=== PATIENT | male | born 1955 | race Caucasian/White ===

== ENCOUNTER 2016-07-11 13:37 | Inpatient (IN) ==
[2016-07-11] MEDS ORDERED: Aspirin 81 MG TAB.CHEW PO ONE (13:42)
[2016-07-11] MEDS ORDERED: *HR* Morphine 2 MG/ML SYRINGE IV ONE (13:47)
[2016-07-11] MEDS ORDERED: Nitroglycerin 0.4 MG TAB.SUBL SL STA (13:47)
[2016-07-11] MEDS ORDERED: Ondansetron 4 MG/2 ML VIAL IV ONE (13:47)
--- NOTE | 2016-07-11 13:49 | Emergency Department Note ---
Disposition Clinical Impression: Unstable angina Disposition: Admitted As Inpatient Referrals: Jerry Almeida MD [Primary Care Provider] - Forms: ED Satisfaction Letter Chest Pain HPI - General Chief Complaint: ED Chest Pain Stated Complaint: CP Time Seen by Provider: 07/11/16 13:42 Source: patient, family Limitations: no limitations Vital Signs Reviewed: Yes Nursing Notes Reviewed: Yes - History of Present Illness Pt complaint: chest pain Onset (ago): minute(s) (20) Duration: constant Onset: during rest Pain Location: substernal Severity scale (1-10): 10 Quality: other (pressure "18k pounds on my chest") Improves with: nothing Worsens with: nothing Associated symptoms: Reports: diaphoresis, sense of impending doom Treatments prior to arrival chest pain: none - Related Data Home Medications Medication Instructions Recorded Confirmed Albuterol Sulfate [Proair Hfa] 2 puff IH QID PRN 04/19/16 04/19/16 Aspirin 81 mg PO DAILY 04/19/16 04/19/16 ClonazePAM [Klonopin] 2 mg PO TID PRN 04/19/16 04/19/16 Clopidogrel [Plavix] 75 mg PO DAILY 04/19/16 04/19/16 Docusate [Colace] 100 mg PO DAILY PRN 04/19/16 04/19/16 Fluticasone Propionate Nasal 50 mcg NS DAILY 04/19/16 04/19/16 [Flonase] Hydroxyzine HCl 25 mg PO TID PRN 04/19/16 04/19/16 Linagliptin [Tradjenta] 5 mg PO DAILY 04/19/16 04/19/16 Lisinopril/Hydrochlorothiazide 1 each PO DAILY 04/19/16 04/19/16 [Zestoretic 20-12.5 mg Tablet] Loratadine [Claritin] 10 mg PO DAILY 04/19/16 04/19/16 Metformin HCl [Glucophage] 1,000 mg PO BID 04/19/16 04/19/16 Nitroglycerin [Nitrostat] 0.4 mg SL AD PRN 04/19/16 [place]-3S/Dha/Epa/Fish Oil [Fish 1 each PO DAILY 04/19/16 04/19/16 Oil 1,200 mg Softgel] Oxcarbazepine [Trileptal] 300 mg PO BID 04/19/16 Oxycodone HCl 20 mg PO TID PRN 04/19/16 04/19/16 Pantoprazole Sodium [Protonix] 40 mg PO DAILY 04/19/16 04/19/16 Phenytoin ER [Dilantin ER] 100 mg PO QAM 04/19/16 04/19/16 Pravastatin Sodium [Pravachol] 20 mg PO DAILY 04/19/16 04/19/16 Trazodone HCl 100 mg PO HS 04/19/16 04/19/16 Omeprazole [PriLOSEC] 40 mg PO DAILY 07/11/16 07/11/16 Previous Rx's Medication Instructions Recorded LevETIRAcetam [Keppra] 1,000 mg PO Q12HR 30 Days 04/23/16 Benzonatate [Tessalon] 200 mg PO TID PRN #20 capsule 06/17/16 Doxycycline 100 mg PO BID #14 capsule 06/17/16 PredniSONE 20 mg PO BID #10 tablet 06/17/16 Allergies Allergy/AdvReac Type Severity Reaction Status Date / Time levofloxacin [From Levaquin] Allergy Hives Verified 07/11/16 14:47 naproxen Allergy Hives Verified 07/11/16 14:47 All systems ED: reviewed and negative except as stated. Constitutional: Denies: fever Cardiovascular: Denies: palpitations Respiratory: Denies: dyspnea, wheezes, hemoptysis Gastrointestinal: Denies: abdominal pain Chest Pain PMH - Past Medical History Medical history: Reports: diabetes, hypertension, myocardial infarction, seizures, other Surgical history: Reports: angioplasty/stent, appendectomy, cholecystectomy, herniorrhaphy, knee replacement Psychiatric history: Reports: anxiety, depression, panic disorder - Social History Smoking Status: Current every day smoker Alcohol use: Reports: none Drug use: Reports: none Physical Exam - General Limitations: no limitations General appearance: alert, other (diaphoretic) - Head Head exam: atraumatic, normocephalic, normal inspection - Eye Eye exam: Present: normal appearance, PERRL, EOMI - Expanded Eye Exam Pupils: Left: reactive - ENT ENT exam: normal exam, normal oropharynx, mucous membranes moist - Expanded ENT Exam External ear exam: Present: normal external inspection Mouth exam: Present: normal external inspection Teeth exam: Present: normal inspection Throat exam: Present: normal inspection - Neck Neck exam: Present: normal inspection, full ROM, trachea midline - Chest Chest inspection: Present: normal inspection, symmetric chest wall rise - Respiratory Respiratory exam: Present: normal lung sounds bilaterally - Cardiovascular Cardiovascular exam: Present: regular rate, normal rhythm, normal heart sounds - Abdominal Exam Abdominal exam: Present: soft, Non-Tender. Absent: tenderness, distention, guarding, rebound, rigidity - Extremities Exam Extremities exam: Present: normal inspection, full ROM. Absent: tenderness, pedal edema - Expanded Upper Extremity Exam Shoulder exam: Present: normal inspection, full ROM Arm exam: Present: normal inspection, full ROM Elbow exam: Present: normal inspection, full ROM Forearm/Wrist exam: Present: normal inspection, full ROM Hand exam: Present: normal inspection, full ROM Vascular exam: Normal: capillary refill, radial pulse - Expanded Lower Extremity Exam Hip/Pelvis exam: Present: normal inspection, full ROM Upper leg exam: Present: normal inspection, full ROM Knee exam: Present: normal inspection, full ROM Lower leg exam: Present: normal inspection, full ROM Ankle exam: Present: normal inspection, full ROM Foot/toe exam: Present: normal inspection, full ROM Neurovascular/Tendon exam: Absent: motor deficit, sensory deficit, tendon deficit - Back Exam Back exam: Present: normal inspection, full ROM. Absent: tenderness - Neurological Exam Neurological exam: Present: alert, oriented X3 - Expanded Neurological Exam Patient oriented to: Present: person, place, time Coma Scale Eye Opening: Spontaneous Coma Scale Motor Response: Obeys Commands Coma Scale Verbal Response: Oriented Coma Scale Total: 15 - Psychiatric Psychiatric exam: Present: normal affect, normal mood - Skin Skin exam: Present: warm, dry, intact, normal color Course - Reevaluation(s) Reevaluation #1: Dr. marin notified patient persistent CP pressure severe, diaphoretic prior PTCA 2013 RCA stent initial troponin 0.21 will activate cath Time: 14:42 Vital Signs Temperature 98.3 F 07/11/16 13:38 Pulse Rate 94 07/11/16 13:38 Respiratory Rate 24 07/11/16 13:38 Blood Pressure 190/108 07/11/16 13:38 O2 Sat by Pulse Oximetry 96 07/11/16 13:38 Temperature 98.3 F 07/11/16 13:38 Pulse Rate 78 07/11/16 14:30 Respiratory Rate 22 07/11/16 14:30 Blood Pressure 127/76 07/11/16 14:30 O2 Sat by Pulse Oximetry 96 07/11/16 14:30 Oxygen Delivery Oxygen Delivery Nasal Cannula Chest Pain - Differential Diagnosis Likely: stable angina, unstable angina pectoris, atypical chest pain, st elevation myocardial infraction, chest pain, biliary colic - Medical Records Medical records reviewed: Yes I reviewed the patient's medical records. - Lab Data Lab results reviewed: Yes I reviewed the patient's lab results. Result diagrams: 07/11/16 13:58 07/11/16 13:58 Lab Results 07/11/16 07/11/16 07/11/16 Range/Units 13:58 13:58 13:58 WBC 10.1 (4.3-11.1) K/mcL RBC 5.11 (4.19-5.50) M/mcL Hgb 15.5 (12.9-16.9) g/dL Hct 45.4 (37.5-50.1) % MCV 88.8 (83.0-100.0) fL MCH 30.3 (28.0-33.3) pg MCHC 34.1 (31.6-35.5) g/dL RDW 13.5 (11.5-14.5) % Plt Count 138 L (140-400) K/mcL MPV 11.8 (9.4-12.4) fL Immature Gran % 3.7 (0-4) % Seg Neutrophils % 64.5 % Lymphocytes % 24.7 % Monocytes % 5.0 % Eosinophils % 1.1 % Basophils % 1.0 % Neutrophils # 6.5 (1.6-8.9) K/mcL Lymphocytes # 2.5 (0.6-4.6) K/mcL Monocytes # 0.5 (0.0-1.3) K/mcL Eosinophils # 0.1 (0.0-0.6) K/mcL Basophils # 0.1 (0.0-0.2) K/mcL PT 11.2 (9.4-12.1) Seconds INR 1.0 APTT 28.5 (26.0-36.0) Seconds Sodium 140 (136-145) mEq/L Potassium 3.8 (3.5-4.5) mEq/L Chloride 106 (98-109) mEq/L Carbon Dioxide 22 (19-29) mEq/L BUN 15 (8-26) mg/dL Creatinine 0.89 (0.72-1.25) mg/dL Est GFR ( Amer) > 60 (> 60) Est GFR (Non-Af Amer) > 60 (> 60) BUN/Creatinine Ratio 17 (6-26) Glucose 200 H (70-99) mg/dL Calculated Osmolality 296 (280-300) Calcium 9.9 (8.6-10.8) mg/dL Troponin I (0-0.03) ng/mL 07/11/16 Range/Units 13:58 WBC (4.3-11.1) K/mcL RBC (4.19-5.50) M/mcL Hgb (12.9-16.9) g/dL Hct (37.5-50.1) % MCV (83.0-100.0) fL MCH (28.0-33.3) pg MCHC (31.6-35.5) g/dL RDW (11.5-14.5) % Plt Count (140-400) K/mcL MPV (9.4-12.4) fL Immature Gran % (0-4) % Seg Neutrophils % % Lymphocytes % % Monocytes % % Eosinophils % % Basophils % % Neutrophils # (1.6-8.9) K/mcL Lymphocytes # (0.6-4.6) K/mcL Monocytes # (0.0-1.3) K/mcL Eosinophils # (0.0-0.6) K/mcL Basophils # (0.0-0.2) K/mcL PT (9.4-12.1) Seconds INR APTT (26.0-36.0) Seconds Sodium (136-145) mEq/L Potassium (3.5-4.5) mEq/L Chloride (98-109) mEq/L Carbon Dioxide (19-29) mEq/L BUN (8-26) mg/dL Creatinine (0.72-1.25) mg/dL Est GFR ( Amer) (> 60) Est GFR (Non-Af Amer) (> 60) BUN/Creatinine Ratio (6-26) Glucose (70-99) mg/dL Calculated Osmolality (280-300) Calcium (8.6-10.8) mg/dL Troponin I 0.21 H* (0-0.03) ng/mL - EKG Data EKG attestation: Yes I reviewed and interpreted this EKG. EKG shows normal: sinus rhythm Rate: normal Rhythm: NSR [place]/QRS: RBBB When compared to previous EKG there are: other (No ischemic changes noted between the 2 EKGs but patient still complains of severe substernal chest pressure and nausea production corrugator notified) Critical Care Time Critical Care Time: Yes Total Critical Care Time: 40 Attestation: Critical care performed: Time is exclusive of separately billable procedures. Time includes: direct patient care, patient reassessment, coordination of patient care, interpretation of data (laboratory data, radiology data, and respiratory data), review of patient's medical records, medical consultation and documentation of patient care. Procedures included in critical care time: Procedures excluded from critical care time:
[2016-07-11 14:05] LABS: Basophils # 0.1 K/mcL (0.0-0.2); Eosinophils # 0.1 K/mcL (0.0-0.6); Eosinophils % 1.1 %; Hematocrit 45.4 % (37.5-50.1); Hemoglobin 15.5 g/dL (12.9-16.9); Immature Granulocytes % 3.7 % (0-4); Lymphocytes # 2.5 K/mcL (0.6-4.6); Lymphocytes % 24.7 %; Mean Corpuscular HGB Conc 34.1 g/dL (31.6-35.5); Mean Corpuscular Hemoglobin 30.3 pg (28.0-33.3); Mean Corpuscular Volume 88.8 fL (83.0-100.0); Mean Platelet Volume 11.8 fL (9.4-12.4); Monocytes # 0.5 K/mcL (0.0-1.3); Neutrophils # 6.5 K/mcL (1.6-8.9); Platelet Count 138 K/mcL (140-400); Red Blood Count 5.11 M/mcL (4.19-5.50); Red Cell Distribution Width 13.5 % (11.5-14.5); Segmented Neutrophils % 64.5 %
[2016-07-11 14:12] LABS: Prothrombin Time 11.2 Seconds (9.4-12.1)
[2016-07-11 14:15] LABS: Activated Partial Thrombo Time 28.5 Seconds (26.0-36.0)
[2016-07-11 14:18] LABS: BUN/Creatinine Ratio 17 (6-26); Blood Urea Nitrogen 15 mg/dL (8-26); Calcium 9.9 mg/dL (8.6-10.8); Carbon Dioxide 22 mEq/L (19-29); Chloride 106 mEq/L (98-109); Glucose 200 mg/dL (70-99); Osmolality,Calculated 296 (280-300); Potassium 3.8 mEq/L (3.5-4.5); Sodium 140 mEq/L (136-145); eGFR For African Americans > 60 (> 60); eGFR For Non-African Americans > 60 (> 60)
[2016-07-11] MEDS ORDERED: *HR* Heparin 5,000 UNIT/ML VIAL IVP STA (14:40)
[2016-07-11] MEDS ORDERED: Heparin 1,000 UNITS/500 mL NS 500 ML ONE (14:50)
[2016-07-11] MEDS ORDERED: 0.9 % Sodium Chloride 1,000 ML ONE (14:50)
[2016-07-11] MEDS ORDERED: *HR* Heparin 10,000 UNIT/10 ML VIAL ONE (14:50)
[2016-07-11] MEDS ORDERED: *HR* Bivalirudin 250 MG VIAL IVC ONE (14:52)
[2016-07-11] MEDS ORDERED: Nitroglycerin 1,000 MCG/10 ML VIAL IV ONE (14:52)
--- NOTE | 2016-07-11 15:11 | Pre-Sedation Evaluation ---
Pre-sedation evaluation - Pre-sedation checklist Date of procedure: 07/11/16 Procedure: [facility] Recent Vitals: Last Vital Signs Temp 98.3 F 07/11/16 13:38 Pulse 74 07/11/16 14:45 Resp 20 07/11/16 15:05 BP 135/80 07/11/16 15:05 Pulse Ox 94 L 07/11/16 14:45 H&P (including ROS) documented in medical record: Yes Previous reaction to sedatives/anesthetics: No Dietary Status: No solid food in preceding 4 hrs and no liquid in preceding 2 hrs Airway Assessment: Patient can open mouth completely, TMJ function normal Dentition: No loose teeth or bridges Possible difficult airway: No ASA Classification *see protocol: CLASS III-Severe systemic disease Plan of Care: Pt appropriate candidate for procedure/moderate/conscious sedation , Risks/benefits of procedure/sedation discussed w/ patient/family, If not NPO; Risk of intake outweiged by necessity to perform procedure
[2016-07-11] MEDS ORDERED: *HR* Midazolam HCl 5 MG/5 ML VIAL IVP ONE (15:12)
[2016-07-11] MEDS ORDERED: *HR* FentaNYL (PF) 100 MCG/2 ML VIAL ONE (15:12)
[2016-07-11] MEDS ORDERED: Ondansetron 4 MG/2 ML VIAL IVP PRN (15:45)
[2016-07-11] MEDS ORDERED: Nitroglycerin 0.4 MG TAB.SUBL SL PRN (15:45)
--- NOTE | 2016-07-11 15:55 | Cardiology Consult Note ---
Date of Encounter: 07/11/16 Time of Encounter: 15:53 Assessment and Plan (1) ST elevation (STEMI) myocardial infarction involving left circumflex coronary artery Current Visit: Yes Status: Acute Patient presented with chest pain and underwent stenting to the circumflex using a bare-metal stent due to significant recurrent nosebleed history he is a diabetic. Continue aspirin Plavix, beta reuben, LSIE inhibitor. We will put him on statins and check an echocardiogram Discussion w patient/family: The assessment and plan as outlined above was discussed with the patient and/or family members who expressed understanding and agreement. All questions were answered. Thank you for involving us in the care of your patient. Please call with any questions. History of Present Illness Consult date: 07/11/16 Consult reason: STEMI Chief complaint: Chest pain History of present illness: Mr. Najera is a 60 year old male with history of known coronary artery disease and prior inferior myocardial infarction 2013 with RCA stent who presented to the ENT office today with recurrent nosebleeds. He says over the last year he has had recurrent nosebleeds at one point he lost 60% of his blood volume. He has been off Plavix for a few days in anticipation of a cauterization procedure. When he went to the ENT office he complained of severe substernal chest pain. He has been having on and off chest pain for the last week or so. The chest pain is described as severe midsternal nonradiating associated with diaphoresis and shortness of breath. Pain did not relent therefore he was brought to the ER. His EKG showed normal sinus rhythm right bundle branch block evidence of acute inferior myocardial infarction with ST elevations in 3 and aVF. New compared to EKG in April 2016. He was taken to the [facility] and underwent PTCA and stent placement with a bare metal stent to the mid circumflex. He is now pain-free. Past Med Surg Social Fam HX - Past Medical History Medical history: diabetes, hypertension, myocardial infarction, seizures, other Psychiatric history: anxiety, depression, panic disorder - Past Surgical History Surgical History: angioplasty/stent, appendectomy, cholecystectomy, herniorrhaphy, knee replacement - Social History Smoking Status: Current every day smoker Smokeless Tobacco Status: No Alcohol use: none Drug use: none - Family History Sister Adopted: No Living Status: Hx Family Cardiac Disorders: Yes (SISTER WITH PACEMAKER & VALVE) Hx Family Respiratory Disorders: Yes (SIUSTER WITH COPD) Hx Family Cancer: Yes (SISTER OF BRAIN CANCER) Hx Family GI Disorders: (UNKNOWN) Hx Family Endocrine Disorder: Yes (SISTER WITH DM) Medications and Allergies Albuterol Sulfate [Proair Hfa] 2 puff IH QID PRN 04/19/16 [History] Aspirin 81 mg PO DAILY 04/19/16 [History] ClonazePAM [Klonopin] 2 mg PO TID PRN 04/19/16 [History] Clopidogrel [Plavix] 75 mg PO DAILY 04/19/16 [History] Docusate [Colace] 100 mg PO DAILY PRN 04/19/16 [History] Fluticasone Propionate Nasal [Flonase] 50 mcg NS DAILY 04/19/16 [History] Hydroxyzine HCl 25 mg PO TID PRN 04/19/16 [History] Linagliptin [Tradjenta] 5 mg PO DAILY 04/19/16 [History] Lisinopril/Hydrochlorothiazide [Zestoretic 20-12.5 mg Tablet] 1 each PO DAILY [History] Loratadine [Claritin] 10 mg PO DAILY 04/19/16 [History] Metformin HCl [Glucophage] 1,000 mg PO BID 04/19/16 [History] Nitroglycerin [Nitrostat] 0.4 mg SL AD PRN 04/19/16 [History] [place]-3S/Dha/Epa/Fish Oil [Fish Oil 1,200 mg Softgel] 1 each PO DAILY 04/19/16 [ History] Oxcarbazepine [Trileptal] 300 mg PO BID 04/19/16 [History] Oxycodone HCl 20 mg PO TID PRN 04/19/16 [History] Pantoprazole Sodium [Protonix] 40 mg PO DAILY 04/19/16 [History] Phenytoin ER [Dilantin ER] 100 mg PO TID 04/19/16 [History] Pravastatin Sodium [Pravachol] 20 mg PO DAILY 04/19/16 [History] Trazodone HCl 100 mg PO HS 04/19/16 [History] LevETIRAcetam [Keppra] 1,000 mg PO Q12HR 30 Days 04/23/16 [Rx] Benzonatate [Tessalon] 200 mg PO TID PRN #20 capsule 06/17/16 [Rx] Doxycycline 100 mg PO BID #14 capsule 06/17/16 [Rx] PredniSONE 20 mg PO BID #10 tablet 06/17/16 [Rx] Omeprazole [PriLOSEC] 40 mg PO DAILY 07/11/16 [History] Allergies levofloxacin [From Levaquin] Allergy (Verified 07/11/16 14:47) Hives naproxen Allergy (Verified 07/11/16 14:47) Hives All Systems Review: A 10-system review of systems was performed and is negative for pertinent findings except as documented above in the HPI. Physical Examination General: Conversant, No Apparent Distress HEENT: Atraumatic, Normocephaly, Mucus Membranes Moist Neck: No JVD, Normal carotid pulses Cardiac: Reg Rate and Rhythm, Normal S1 and S2, No Murmur Lungs: Normal Breath Sounds, No Wheeze, Rales, Rhonchi Neuro: Alert and responsive, No focal deficits noted Abdomen: Soft Skin: No rashes noted on visualized skin Musculoskeletal: No Chest Wall Tenderness Extremities: No Clubbing, No Cyanosis, No Edema, Normal Pulses Results 07/11/16 13:58 07/11/16 13:58 - EKG Interpretation EKG results cardiology: personally reviewed (Normal sinus rhythm inferior ST elevations right bundle-branch block) Consult Discharge Plan - Plan Referrals: Jerry Almeida MD [Primary Care Provider] -
--- NOTE | 2016-07-11 15:58 | Invasive Diagnostic Lab Proc ---
Name: Juan Najera Date of Study: 07/11/2016 Date: 1955 Ht: 70.0in Medical Record#: [id number] Age: 60 Wt: 197.31lb Gender: Male BSA: 2.08 Order #: [id number] BMI: 28.31 Physicians Procedure Physician: Darrin Betancourt MD Referring MD: Referring MD: Staff Name Position Time In Sites, [facility] RT (R) Monitor 03:10 PM Rosetta Rivera RT (R) Scrub 03:10 PM Janie Rose RN Environmental Director 03:10 PM Belén Weaver RN Nurse 03:10 PM Indications Indication STEMI Procedures Performed Procedure L HRT ARTERY/VENTRICLE ANGIO PRQ CARD REVASC NC 1 VSL Pre-Procedure Checklist Informed consent is complete signed and on chart. H\\T\\P is on chart. ID band is on and ID verified with patient. Patient NPO for procedure The procedure was described for the patient and questions were answered. Blood Pressure: 151/82 ECG is on chart. Rhythm: NSR Plan of Care Patient will tolerate the procedure without complications. Adequate level of comfort will be maintained. Hemodynamics will remain stable Patient will recover from procedure without complications. Respiratory function will be maintained. Cardiac rhythm will remain stable. Patient temperature will be maintained. Patient and/or family have verbalized understanding of the procedure. Patient Education Chief Complaint/Reason for Test: Cardiac Cath Developmental Category: Adult (18-64 years) Developmentally Appropriate for Age: Yes Learning Barriers: None Education Needs: Plan of Care Education Method: Verbal Information Taught: Cardiac Cath Educational Evaluation: Able to repeat information Intravenous Access Time IV Size Location DC'd Fluid/Drip Rate Units RN 03:12 PM 18g 1 /" Patent On Arrival Rt Arm 0.9NaCl 25 ml/hr Janie Rose RN Allergies ULTRACET levofloxacin NAPROSYN Vital Signs Time BP (mmHg) HR (bpm) O2 Sat. RR (bpm) LOC 03:11 PM 151 / 82 56 96 % 16 4 = Oriented but drowsy 03:11 PM / % 5 = Fully awake and oriented or at pre-proc level 03:11 PM 151 / 82 56 96 % 0 03:16 PM 141 / 79 64 93 % 33 03:21 PM 140 / 81 71 94 % 20 03:22 PM 149 / 80 78 93 % 19 03:26 PM 139 / 83 78 94 % 22 03:31 PM 127 / 71 77 95 % 16 03:36 PM 120 / 72 76 94 % 22 03:41 PM 145 / 84 82 95 % 15 03:46 PM 146 / 88 80 98 % 16 Procedural Medications Time Medication Dose Units Method Given By 03:11 PM 0.9NaCl 25 ml/hr Intravenous Janie Rose RN 03:11 PM Oxygen 2 L/min nasal cannula Janie Rose RN 03:14 PM Versed 1 mg Intravenous Janie Rose RN 03:14 PM Fentanyl 50 mcg Intravenous Janie Rose RN 03:16 PM Lidocaine 2% 16 ml Subcutaneous Darrin Betancourt MD 03:20 PM Angiomax 0.75mg/kg bolus: 13.5 ml Intravenous Janie Rose RN 03:20 PM Angiomax 1.75mg/kg/hr: 31.5 ml Intravenous Janie Rose RN 03:26 PM Nitroglycerin 200 mcg Intracoronary Darrin Betancourt MD 03:28 PM Oxygen 4 L/min nasal cannula Janie Rose RN 03:32 PM Nitroglycerin 200 mcg Intracoronary Darrin Betancourt MD 03:50 PM Angiomax 1.75mg/kg/hr: ml Dc'd Janie Rose RN ASA Classification: Emergent Procedure: ASA score is assumed Leonel Score Preprocedure Postprocedure Activity 2- Moves 4 extremities sustained head lift Activity 2- Moves 4 extremities sustained head lift Circulation 2- SBP +/= 20 points of pre-anesthetic level Circulation 2- SBP +/= 20 points of pre-anesthetic level Consciousness 2- Awake and alert oriented x 3 Consciousness 2- Awake and alert oriented x 3 O2 Saturation 2- Able to maintain O2 satruation of 92% on room air O2 Saturation 2- Able to maintain O2 satruation of 92% on room air Respiratory 2- Able to deep breathe and cough well Respiratory 2- Able to deep breathe and cough well Total Score 10 Total Score 10 Contrast Agent: Isovue Diagnostic Contrast: 249 ml Total Contrast: 249 ml Fluoro Dose: 1117 mGy Activated Clotting Time Time Seconds to Clot 03:20 PM 203 Procedure Log Time Note Enter By 02:55 PM CathStat 03:05 PM Pt arrived to [facility] tender restoration labor 2 at 15:05 tsites 03:09 PM Patient charges- Angio tray pack, Navilyst 3mm J, Pulse Oximetry and ACIST tubing and transducer tsites 03:10 PM Case Delayed No tsites 03:10 PM Physician arrived 15:10 tsites 03:10 PM Sign in performed according to hospital policy. tsites 03:10 PM Procedure start 15:10 tsites 03:10 PM Prabhjot, Lauren RT (R) Position: Monitor Time in: 15:10 tsites 03:10 PM Rosetta Rivera RT (R) Position: Scrub Time in: 15:10 tsites 03:10 PM Janie Rose RN Position: Environmental Director Time in: 15:10 tsites 03:10 PM Vitals capture started with the following parameters, Patient=Adult, Interval=5 min, Initial Qwfjgltp=465 mmHg, Deflation Rate=5 mmHg, Cuff placed on Left Leg 03:10 PM Belén Weaver RN Position: Nurse Time in: 15:10 ites 03:10 PM Hair removed from procedure site in procedure lab using clippers. Bilateral groin prepped with Chloraprep by Belén Weaver RN then patient draped. Skin intact. tsites 03:11 PM Time: 15:11 0.9NaCl 25 ml/hr Intravenous Given by Janie Rose RN 03:11 PM Time: 15:11 Oxygen on at 2 L/min per nasal cannula by Janie Rose RN 03:11 PM Time: 15:11 Patient comfortable and pain free: Yes 03:11 PM Time: 15:11LOC: 4 = Oriented but drowsy tsites 03:11 PM Clinical Presentation: STEMI or equivalent tsites 03:11 PM HR=56 bpm, AGFB=846/82 mmhg, SpO2=96 %, Resp=0 B/min 03:12 PM Recorded ECG: HR=58 Condition=Condition 1 03:14 PM Time: 15:14 Versed 1 mg Intravenous Given by Janie Rose RN tsites 03:14 PM Time: 15:14 Fentanyl 50 mcg Intravenous Given by Janie Rose RN tsites 03:16 PM HR=64 bpm, TPTY=413/79 mmhg, SpO2=93.0 %, Resp=33 B/min 03:16 PM Pressure channel 1 zeroed. 03:17 PM Time: 15:16 16 ml Lidocaine 2% to right groin Subcutaneous Given by Darrin Betancourt MD tsites 03:17 PM Access obtained by percutaneous puncture. 6Fr 10cm Terumo Davidson sheath placed in right Femoral artery. [id number] tsites 03:17 PM 6Fr JR 4 Runway guide catheter was used to cannulate the PCI vessel successfully. reused? No tsites 03:17 PM 0.035 145cm Navilyst 3mmJ wire [id number] tsites 03:17 PM Inflation device was opened. tsites 03:18 PM Recorded Pressure: Ao, HR=58, Condition=Condition 1 (Aorta) Ao 119/63/84 03:19 PM RCA angiography performed in multiple views. tsites 03:19 PM Coronary Dominance: right tsites 03:19 PM Lesion found in Mid RCA. Pre Stenosis: 70 Pre LEON Flow: tsites 03:20 PM Right Coronary, Right Posterior Descending Arteries with Right Posterolateral and Acute Marginal branches with 70 % stenosis. If graft is supplying this area, % stenosis tsites 03:20 PM At 15:20 the ACT was 203 seconds. tsites 03:20 PM Time: 15:20 Angiomax 0.75mg/kg bolus: 13.5 ml Intravenous Given by Janie Rose RN Morse pump tsites 03:20 PM Time: 15:20 Angiomax 1.75mg/kg/hr: 31.5 ml Intravenous Given by Janie Rose RN Morse pump tsites 03:21 PM Guide catheter removed intact. tsites 03:21 PM HR=71 bpm, EJBW=453/81 mmhg, SpO2=94.0 %, Resp=20 B/min 03:21 PM 5Fr FL 4 catheter inserted over the wire DN tsites 03:21 PM Recorded Pressure: Ao, HR=74, Condition=Condition 1 (Aorta) Ao 70/39/52 03:22 PM NIBP STAT measurement started. 03:22 PM Lesion found in Mid LAD. Pre Stenosis: 20 Pre LEON Flow: tsites 03:22 PM Lesion found in Distal LAD. Pre Stenosis: 80 Pre LEON Flow: tsites 03:22 PM Lesion found in Mid Circumflex. Pre Stenosis: 99 Pre LEON Flow: tsites 03:22 PM HR=78 bpm, SWZS=076/80 mmhg, SpO2=93 %, Resp=19 B/min 03:22 PM Catheter removed tsites 03:23 PM 5Fr Pigtail catheter inserted over the wire DN tsites 03:23 PM Catheter selectively placed in left ventricle tsites 03:23 PM Bolus angiogram of left Ventricle complete: 8 ml/sec for a total of 24 mls tsites 03:23 PM Recorded Pressure: LV, HR=79, Condition=Condition 1 (Left Ventricle) LV 121/8/24 03:24 PM 6Fr XB3.5 Mchenry Bright-Tip guide catheter was used to cannulate the PCI vessel successfully. reused? No tsites 03:26 PM HR=78 bpm, NBPZ=583/83 mmhg, SpO2=94 %, Resp=22 B/min 03: PM Time: 15:26 Nitroglycerin 200 mcg Intracoronary Given by Darrin Betancourt MD tsites 03:26 PM Time: 15:11LOC: 5 = Fully awake and oriented or at pre-proc level tsites 03:27 PM Lesion found in LMCA. Pre Stenosis: 30 Pre LEON Flow: tsites 03:28 PM .014 Prowater 182cm guide wire across target lesion- successful. reused? No tsites 03:28 PM Time: 15:28 Oxygen on at 4 L/min per nasal cannula by Janie Rose RN tsites 03:28 PM 2.0 mm x 8 mm Emerge Monorail balloon across target lesion- successful. reused? No tsites 03:29 PM Balloon inflated @ 8 clarenec for 8 seconds tsites 03:30 PM Balloon inflated @ 12 clarence for 9 seconds tsites 03:30 PM Balloon inflated @ 12 clarence for 6 seconds tsites 03:31 PM Balloon catheter removed intact. tsites 03:31 PM HR=77 bpm, BWJH=545/71 mmhg, SpO2=95 %, Resp=16 B/min 03:32 PM Time: 15:32 Nitroglycerin 200 mcg Intracoronary Given by Darrin Betancourt MD tsites 03:32 PM Recorded Pressure: Ao, HR=74, Condition=Condition 1 (Aorta) Ao 110/62/84 03:34 PM 2.5mm x 16mm Rebel [employer] bare metal stent across target lesion- successful Lot #[id number] tsites 03:35 PM Stent deployed @ 18 clarence for 14 seconds tsites 03:35 PM Stent delivery system removed intact. tsites 03:35 PM Guide wire removed intact. tsites 03:36 PM HR=76 bpm, CLRU=171/72 mmhg, SpO2=94 %, Resp=22 B/min 03:39 PM Lesion found in 1st Diagonal. Pre Stenosis: 50 Pre LEON Flow: tsites 03:40 PM Bolus angiogram of right Femoral complete: 2 ml/sec for a total of 4 mls tsites 03:40 PM Procedure completed at 15:40 tsites 03:41 PM Sign out completed: Radiation Dose 1117 mGy Fluoro Time: 4.7 Isovue 370 - 500ml contrast 249 ml given by Darrin Betancourt MD. Complications: NoneCardiac Rehab Consult needed: YesConfirmed administered medications: Yes tsites 03:41 PM Isovue 370 - 500ml,1 Bottle(s) used. tsites 03:41 PM Arterial sheath pulled, PERCLOSE closure device used and was Successful S/N. tsites 03:41 PM Post ECG NSR tsites 03:41 PM HR=82 bpm, OGWZ=934/84 mmhg, SpO2=95 %, Resp=15 B/min 03:42 PM Post Blood Pressure 145/84 tsites 03:42 PM 15:42 Post Pulses Bilateral DP \\T\\ PT 1+ tsites 03:42 PM Information taught Cardiac Cath, PCI, and Perlose tsites 03:42 PM Education needs Procedure, Plan of Care, and Responsibilities of Patient in Care tsites 03:42 PM Learning barriers :None tsites 03:42 PM Education Methods Verbal tsites 03:42 PM Education evaluation Able to repeat information tsites 03:42 PM Site status No bleeding/hematoma - Rt Groin as reported by Rosetta Rivera RT (R) at 15:42 tsites 03:42 PM Opsite applied tsites 03:42 PM Plavix, Effient or Brilinta given Yes In er tsites 03:43 PM Delay to floor No tsites 03:43 PM Family placed in consult room. tsites 03:44 PM Patient out of room: 15:44 tsites 03:46 PM HR=80 bpm, LXLB=414/88 mmhg, SpO2=98 %, Resp=16 B/min 03:50 PM Time: 15:50 Angiomax 1.75mg/kg/hr: ml Dc'd Given by Janie Rose RN Morse pump tsites 03:51 PM Report given to marge MENARD Pt taken to ICU Room #1. 15:51 tsites Complications Complication None Hemodynamics Pressures Site Systolic/A Wave Diastolic/V Wave Mean AO 119 63 84 AO 70 39 52 LV 121 8 24 AO 110 62 84 Post Procedure Information Blood Pressure: 145/84 mmHg Rhythm: NSR Post procedural instructions were given Closure Device Time Device Success/Fail 07/11/2016 3:44:00 PM Perclose ProGlide Successful Site Checks Time Location Status Staff Sheath In? Note 03:42 PM Rt Groin No bleeding/hematoma Rosetta Rivera RT (R) Pulses Time Site Pre-Procedure Post-Procedure Note 07/11/2016 3:12:00 PM Bilateral DP \\T\\ PT 1+ 3:42:00 PM Bilateral DP \\T\\ PT 1+ Updated by Lauren Rick RT (R) on 07/11/2016 3:53:09 PM Lauren Rick RT electronically signed on 07/11/2016 3:53:36 PM with status of Final
--- NOTE | 2016-07-11 16:05 | Invasive Diagnostic Lab ---
Name: Juan Najera Date of Study: 07/11/2016 Date: 1955 Ht: 177.8 cm /70.0 in Medical Record#: [id number] Age: 60 Wt: 89.5 kg / 197.31 lb Account/Order#: [id number] Gender: Male BSA: 2.08 Order #: [id number] Fluoro Dose: 1117 mGy BMI: 28.31 Procedure Physician: Darrin Betancourt MD Referring MD: Referring MD: Procedures Performed: LEFT HEART CATH PCI of Acute NH Indications: STEMI Impressions: There is severe one vessel coronary artery disease. The left ventricle is normal and has normal contractility EF 60% Patient had successful PTCA/Bare Metal Stent placement in the mid Circ. Recommendations: Optimal medical therapy of patient's disease. Aggressive risk factor modification. History/Risk Factors: Diabetes Current/Recent Smoker Prior NH Previous PCI Procedure Access obtained in the right Femoral artery by percutaneous puncture Patient had successful PTCA/Bare Metal Stent placement in the mid Circ. Complications: None Contrast: Isovue 249ml Closure Device: Perclose ProGlide Hemodynamics: Pressures Site Systolic/ A Wave Diastolic/ V Wave End Diastolic/ Mean HR AO 119 63 84 58 AO 70 39 52 74 LV 121 8 24 79 AO 110 62 84 74 LV Ventriculography Ejection Method: LV Gram Ejection Fraction: 60% Wall Motion: LÓPEZ Anterobasal Normal Anterolateral Normal Apical: Normal Inferoapical Normal Inferobasal Normal Coronary Dominance: right Lesion Findings/Interventions * Left Main Coronary Artery There is a 30% stenosis in the LMCA. * Left Anterior Descending There is a 20% stenosis in the Mid LAD. There is a 50% stenosis in the 1st Diagonal. * Circumflex There is a 16 mm long, 99% stenosis in the Mid Circumflex. The lesion has a LEON flow of 2 and has no thrombus present. An intervention was performed on the Mid Circumflex with a final stenosis of 0%. There were no lesion complications. The final LEON flow was 3. * Right Coronary Artery The Distal RCA has patent stents present from a previous procedure. There is a 70% stenosis in the Mid RCA. Interventional Device(s) Vessel Segment Type Name Diameter (mm) Length (mm) Mid Circumflex Balloon Emerge Monorail 2 8 Mid Circumflex Bare Metal Stent Rebel [employer] 2.5 16 Updated by Lauren Rick RT (R) on 07/11/2016 3:52:38 PM Darrin Betancourt MD electronically signed on 07/11/2016 4:00:33 PM with status of Final
[2016-07-11] MEDS: 0.9 % Sodium Chloride 1,000 ML IVC SCH ×2 (16:58→21:30)
[2016-07-11] MEDS: Insulin LISPRO 300 UNITS/3 ML VIAL SQ SCH (17:50)
[2016-07-12] MEDS ORDERED: *HR* Midazolam HCl 5 MG/5 ML VIAL IVP ONE ×2 (02:42→08:15)
[2016-07-12 03:07] LABS: Basophils # 0.1 K/mcL (0.0-0.2); Basophils % 0.3 %; Eosinophils # 0.3 K/mcL (0.0-0.6); Eosinophils % 1.5 %; Hematocrit 45.4 % (37.5-50.1); Hemoglobin 14.5 g/dL (12.9-16.9); Immature Granulocytes % 4.8 % (0-4); Immature Platelets 10.7 % (1.1-6.1); Lymphocytes # 6.8 K/mcL (0.6-4.6); Lymphocytes % 34.9 %; Mean Corpuscular HGB Conc 31.9 g/dL (31.6-35.5); Mean Corpuscular Volume 93.8 fL (83.0-100.0); Mean Platelet Volume 11.4 fL (9.4-12.4); Monocytes # 1.4 K/mcL (0.0-1.3); Monocytes % 7.4 %; Neutrophils # 9.9 K/mcL (1.6-8.9); Nucleated Red Blood Cells 0.1 /100 WBC (0); Platelet Count 143 K/mcL (140-400); Red Blood Count 4.84 M/mcL (4.19-5.50); Red Cell Distribution Width 13.7 % (11.5-14.5); Segmented Neutrophils % 51.1 %
[2016-07-12 03:13] LABS: ABG Base Excess -14.8 mEq/L (-2.0 to 3.0); ABG HCO3 15.6 mEQ/L (21-27); ABG Oxygen Saturation 100 % (95-98); ABG PCO2 54 mmHg (35-45); ABG PO2 346 mmHg (85-104); ABG TCO2 17.3 mEq/L (20-26)
[2016-07-12 03:15] LABS: Blood Gas FiO2 100 %
[2016-07-12 03:16] LABS: ABG PH 7.07 pH Units (7.32-7.45)
[2016-07-12 03:18] LABS: BUN/Creatinine Ratio 13 (6-26); Blood Urea Nitrogen 12 mg/dL (8-26); Calcium 8.5 mg/dL (8.6-10.8); Carbon Dioxide 14 mEq/L (19-29); Chloride 106 mEq/L (98-109); Glucose 164 mg/dL (70-99); Magnesium 1.9 mg/dL (1.6-2.6); Osmolality,Calculated 293 (280-300); Phosphorous 4.8 mg/dL (2.3-4.7); Potassium 3.6 mEq/L (3.5-4.5); Sodium 140 mEq/L (136-145); eGFR For African Americans > 60 (> 60); eGFR For Non-African Americans > 60 (> 60)
--- NOTE | 2016-07-12 03:23 | Event Note ---
Date of Encounter: 07/12/16 Time of Encounter: 02:45 JUAN SHAW was called at 2:34 AM today. Hospitalist team, respiratory therapy and nursing staff in ICU attended the code. Apparently patient had seizure for about 1 minute, which was witnessed by RN, thinks the patient may have aspirated. Subsequently he went into PEA cardiac arrest. Chest compressions were started immediately. On my arrival, just compression was underway. Pt recieved 1 mg of epinephrine. Pt had ROSC and had facial movements. He is confused and not able to protect the airway. Patient was intubated by respiratory therapist, who noted some blood at the vocal cords (Blood from the nose versus from the vocal cords). o/E Bilateral air entry present after intubation. On mechanical ventilation and sedation. CXR ordered. Stat labs, EKG ordered. Recommendations to primary team: Consider pulmonary consultation for vent management; Consider Neurologist for management of seizure medications; Consider ENT consult for Epistaxis / vocal cord bleed.
[2016-07-12 03:40] LABS: INR 1.1; Prothrombin Time 11.5 Seconds (9.4-12.1)
[2016-07-12 03:42] LABS: Activated Partial Thrombo Time 31.1 Seconds (26.0-36.0)
[2016-07-12] MEDS: 0.9 % Sodium Chloride 1,000 ML IVC SCH (03:44)
[2016-07-12 03:45] LABS: Platelet Estimate Normal (Normal); Reactive Lymphocytes Present (Not Present)
[2016-07-12] MEDS ORDERED: levETIRAcetam 1,000 MG in 0.9 % Sodium Chloride 100 ML IVPB ONE (03:50)
[2016-07-12 05:04] LABS: ABG Base Excess -2.4 mEq/L (-2.0 to 3.0); ABG HCO3 23.2 mEQ/L (21-27); ABG Oxygen Saturation 98 % (95-98); ABG PCO2 42 mmHg (35-45); ABG PH 7.35 pH Units (7.32-7.45); ABG PO2 109 mmHg (85-104); ABG TCO2 24.5 mEq/L (20-26); Blood Gas FiO2 50 %
--- NOTE | 2016-07-12 06:56 | Pulmonology Consult Note ---
<Chandana Roldan W - Last Filed: 07/12/16 10:02> Medications and Allergies Albuterol Sulfate [Proair Hfa] 2 puff IH QID PRN 04/19/16 [History] Aspirin 81 mg PO DAILY 04/19/16 [History] ClonazePAM [Klonopin] 2 mg PO TID PRN 04/19/16 [History] Clopidogrel [Plavix] 75 mg PO DAILY 04/19/16 [History] Docusate [Colace] 100 mg PO DAILY PRN 04/19/16 [History] Fluticasone Propionate Nasal [Flonase] 50 mcg NS DAILY 04/19/16 [History] Hydroxyzine HCl 25 mg PO TID PRN 04/19/16 [History] Linagliptin [Tradjenta] 5 mg PO DAILY 04/19/16 [History] Lisinopril/Hydrochlorothiazide [Zestoretic 20-12.5 mg Tablet] 1 each PO DAILY [History] Loratadine [Claritin] 10 mg PO DAILY 04/19/16 [History] Metformin HCl [Glucophage] 1,000 mg PO BID 04/19/16 [History] Nitroglycerin [Nitrostat] 0.4 mg SL AD PRN 04/19/16 [History] [place]-3S/Dha/Epa/Fish Oil [Fish Oil 1,200 mg Softgel] 1 each PO DAILY 04/19/16 [ History] Oxcarbazepine [Trileptal] 300 mg PO BID 04/19/16 [History] Oxycodone HCl 20 mg PO TID PRN 04/19/16 [History] Pantoprazole Sodium [Protonix] 40 mg PO DAILY 04/19/16 [History] Phenytoin ER [Dilantin ER] 100 mg PO TID 04/19/16 [History] Pravastatin Sodium [Pravachol] 20 mg PO DAILY 04/19/16 [History] Trazodone HCl 100 mg PO HS 04/19/16 [History] LevETIRAcetam [Keppra] 1,000 mg PO Q12HR 30 Days 04/23/16 [Rx] Benzonatate [Tessalon] 200 mg PO TID PRN #20 capsule 06/17/16 [Rx] Doxycycline 100 mg PO BID #14 capsule 06/17/16 [Rx] PredniSONE 20 mg PO BID #10 tablet 06/17/16 [Rx] Omeprazole [PriLOSEC] 40 mg PO DAILY 07/11/16 [History] Allergies levofloxacin [From Levaquin] Allergy (Verified 07/11/16 14:47) Hives naproxen Allergy (Verified 07/11/16 14:47) Hives All Systems: A 10-system review of systems was performed and is negative for pertinent findings except as documented above in the HPI. Physical Examination Vital Signs: Vital Signs, Last 4 Hours Temp Pulse Resp BP Pulse Ox 07/12/16 09:00 73 18 131/83 92 L 07/12/16 08:40 99 07/12/16 08:00 57 21 119/72 98 07/12/16 07:51 17 99 07/12/16 07:31 24 98 07/12/16 07:15 98.1 F 07/12/16 07:00 51 20 104/69 98 07/12/16 06:00 47 19 98/67 98 Ventilator Settings Ventilator Settings: Ventilator Settings, Last 8 Hours Ventilator Mode CPAP Ventilator Mode VC+ Ventilator Mode VC+ Ventilator Mode VC+ Ventilator Mode A/C Ventilator Mode A/C Ventilator Mode VC+ Ventilator Mode VC+ Ventilator Tidal Volume 550 Setting Ventilator Tidal Volume 550 Setting Ventilator Tidal Volume 550 Setting Ventilator Tidal Volume 550 Setting Ventilator Tidal Volume 550 Setting Ventilator Tidal Volume 550 Setting Ventilator Tidal Volume 550 Setting Ventilator Respiratory Rate 12 Setting Ventilator Respiratory Rate 12 Setting Ventilator Respiratory Rate 12 Setting Ventilator Respiratory Rate 12 Setting Ventilator Respiratory Rate 12 Setting Ventilator Respiratory Rate 12 Setting Ventilator Respiratory Rate 12 Setting Actual Respiratory Rate 24 Actual Respiratory Rate 21 Actual Respiratory Rate 20 Actual Respiratory Rate 14 Actual Respiratory Rate 19 Actual Respiratory Rate 29 Positive End Expiratory 5 Pressure Positive End Expiratory 5 Pressure Positive End Expiratory 5 Pressure Positive End Expiratory 5 Pressure Positive End Expiratory 5 Pressure Positive End Expiratory 5 Pressure Positive End Expiratory 5 Pressure Positive End Expiratory 5 Pressure Peak Inspiratory Airway 20 Pressure Peak Inspiratory Airway 20 Pressure Peak Inspiratory Airway 22 Pressure Peak Inspiratory Airway 19 Pressure Peak Inspiratory Airway 12 Pressure Results - Laboratory Findings CBC and BMP: 07/12/16 03:00 07/12/16 03:00 ABG ABG pH 7.07 pH Units (7.32-7.45) L* 07/12/16 Unknown ABG pCO2 54 mmHg (35-45) H 07/12/16 Unknown ABG pO2 346 mmHg (85-104) H 07/12/16 Unknown ABG O2 Saturation 100 % (95-98) H 07/12/16 Unknown PT/INR, D-dimer PT 11.5 Seconds (9.4-12.1) 07/12/16 03:20 Abnormal lab findings: Abnormal lab results WBC 19.4 K/mcL (4.3-11.1) H D 07/12/16 03:00 Immature Gran % 4.8 % (0-4) H 07/12/16 03:00 Neutrophils # 9.9 K/mcL (1.6-8.9) H 07/12/16 03:00 Lymphocytes # 6.8 K/mcL (0.6-4.6) H 07/12/16 03:00 Monocytes # 1.4 K/mcL (0.0-1.3) H 07/12/16 03:00 Nucleated RBCs/100 WBC 0.1 /100 WBC (0) H 07/12/16 03:00 Reactive Lymphocytes Present (Not Present) A 07/12/16 03:00 Immature Plt Fraction 10.7 % (1.1-6.1) H 07/12/16 03:00 ABG pH 7.07 pH Units (7.32-7.45) L* 07/12/16 Unknown ABG pCO2 54 mmHg (35-45) H 07/12/16 Unknown ABG pO2 346 mmHg (85-104) H 07/12/16 Unknown ABG HCO3 15.6 mEQ/L (21-27) L 07/12/16 Unknown ABG Total CO2 17.3 mEq/L (20-26) L 07/12/16 Unknown ABG O2 Saturation 100 % (95-98) H 07/12/16 Unknown ABG Base Excess -14.8 mEq/L (-2.0 to 3.0) L 07/12/16 Unknown Carbon Dioxide 14 mEq/L (19-29) L 07/12/16 03:00 Glucose 164 mg/dL (70-99) H 07/12/16 03:00 POC Glucose 124 (58-89) H 07/11/16 17:36 Calcium 8.5 mg/dL (8.6-10.8) L 07/12/16 03:00 Ionized Calcium 1.10 mmol/L (1.15-1.35) L 07/12/16 03:00 Phosphorus 4.8 mg/dL (2.3-4.7) H 07/12/16 03:00 Troponin I 0.21 ng/mL (0-0.03) H* 07/11/16 13:58 - Clinical Findings Intake & Output: Intake & Output 07/11/16 07/12/16 07/12/16 23:59 07:59 15:59 Intake Total 1900 / 1900 210 / 210 Output Total 650 / 650 1270 / 1270 Balance 1250 / 1250 -1060 / -1060 Weight 92.442 kg Consult Discharge Plan - Plan Referrals: Jerry Almeida MD [Primary Care Provider] - - Attending Attestation I examined this patient and my medical decision-making was reviewed with the METAL BONDING WORKER/PA/Advanced Practice Nurse/Resident Physician. I agree with the documented findings, disposition and treatment plan as described except to the extent set forth below. Patient seen and examined at bedside Labs, radiology, chart personally reviewed. All lines examined without evidence of infection. Neuropsych: awake and alert at present. History of Seizure disorder with acute seizure overnight likely s/t to medication withdrawl. loaded with keppra. no seizure activity today. cont antiepilieptics will contact primary neurologist. primary neurologist check. Pulm: Acute hpoxic failure s/t aspiration from seizure requiring intubation no liberated. acceptable saturation well on minimal NC o2 Cards: PEA arrest s/t hypxoic s/t 1 cycle ACS. STEMI s/p BMS cards following cont asa plavix statin and BB cards following FEN-GI: ADAT Renal: no TIMOTHY monitor UOP ID: cheical aspiration monitor for now. COnsider ABx if worseing resp status leucocytosis or fever. Heme/Onc: DVT prophylaxis Endo: Glucose monitored and SSI coverage Integ/MSK: no evidence of skin breakdown. cont nursing protocol CODE: Full Stable for transfer to med/tele bed. <Lester To - Last Filed: 07/12/16 11:20> Date of Encounter: 07/12/16 Time of Encounter: 06:56 Assessment and Plan (1) Seizure disorder Current Visit: Yes Status: Chronic Patient with a history of seizure disorder on tid home medications. Patient took morning dose, but was unable to take afternoon dose due to left heart cath for STEMI. Overnight patient had witnessed seizure and then developed PEA cardiac arrest. Patient was given a single dose of 1000mg Keppra overnight. Patient awake and alert and oriented x4. No apparent deficits on neuro exam. Vitals stable, continue to monitor labs. Reinstitute home meds including Phenytoin, Trileptal, and Keppra for seizure disorder. Reviewed home med list: Levetiracetam (Keppra) 500mg bid, Phenytoin 100mg 1 capsule qam 3 capsules qhs, Oxcarbazepine 1500mg 2 tabs bid. (2) PEA (Pulseless electrical activity) Current Visit: Yes Status: Acute Around 02:34 patient had witnessed seizure activity and then developed PEA, hr 20s, and was noted to have blue facial appearance. One round ACLS with epi given before ROSC and facial grimace. Pupils were dilated and unresponsive at that time. Decision to intubate was made. There was noted blood at the vocal cords. Patient was on ventilator overnight before breathing trial this morning and successful extubation. (3) ST elevation (STEMI) myocardial infarction involving left circumflex coronary artery Current Visit: Yes Status: Acute Patient with history of CAD with stent placements presented to ENT for recurrent epistaxis and was determined to have complaints of severe substernal chest pain. EKG revealed ST elevations of lead 3 and aVF. Patient was sent to [facility] where a stent was placed in his circumflex. Continue per plan of Cardiology. Continue aspirin, plavix, beta reuben, and LISE inhibitor, and statin. (4) Leukocytosis Current Visit: Yes Status: Acute Elevated WBC 19.4 this morning, no fever. Possible aspiration pneumonia due to seizure event. Will continue to follow. If worsening WBC, fever, or respiratory function, may consider antibiotics. Qualifiers: Leukocytosis type: unspecified Qualified Code(s): D72.829 - Elevated white blood cell count, unspecified (5) DVT prophylaxis Current Visit: Yes Status: Acute Continue with aspirin and plavix. Encourage ambulation. History of Present Illness Consult date: 07/12/16 Reason for consult: other (Seizure, PEA, STEMI) Chief complaint: Seizure, PEA, STEMI History of present illness: Mr. Najera is a 60 year old male with history of known CAD with prior AK and stent placement in 2012, seizures, hypertension, and diabetes who presented to the ENT office yesterday with recurrent epistaxis and also complained of severe substernal chest pain that was nonradiating, associated with diaphoresis and dyspnea. Patient was brought to the ER where EKG revealed ST elevations in lead 3 and aVF. Patient was taken to the [facility] and had stent placed in mid circumflex. Patient returned to the ICU without complaints and vitals stable. Around 02:34am the ICU nurses heard a noise from the patients room and he was found having a seizure and pulling covers over his head. At that time the nurses also noted the patient's face was blue, heart rate of 20, and PEA. One round ACLS was started before patient had ROSC and facial movements. He was confused, pupils were dilated and unresponsive, and patient was deemed unable to protect his airway. The patient was intubated at which time some blood was noted around the vocal cords. CXR revealed adequate ET tube placement. Patient now successfully extubated. Complaints of substernal chest pain that is reproducible on palpation and continuous drainage down the back of his throat. Patient denies fever, chills, sweats, changes in vision or hearing, nausea, vomiting, shortness of breath, abdominal pain, changes in bowels or bladder, weakness, or loss of sensation. Past Med Surg Social Fam HX - Past Medical History Medical history: coronary artery disease, diabetes, GERD, hypertension, myocardial infarction, seizures, other Psychiatric history: anxiety, depression, panic disorder - Past Surgical History Surgical History: angioplasty/stent, appendectomy, cholecystectomy, herniorrhaphy, knee replacement - Social History Smoking Status: Current every day smoker Packs per day: 0.5 Smokeless Tobacco Status: No Alcohol use: none Drug use: none - Family History Sister Adopted: No Living Status: Hx Family Cardiac Disorders: Yes (SISTER WITH PACEMAKER & VALVE) Hx Family Respiratory Disorders: Yes (SISTER WITH COPD) Hx Family Cancer: Yes (SISTER OF BRAIN CANCER) Hx Family GI Disorders: (UNKNOWN) Hx Family Endocrine Disorder: Yes (SISTER WITH DM) ROS unobtainable: due to endotracheal tube All Systems: A 10-system review of systems was performed and is negative for pertinent findings except as documented above in the HPI. - Constitutional Constitutional: as per HPI, no chills, no fever(s), no headache(s), no weakness - EENT Eyes: as per HPI Ears: as per HPI Nose, mouth and throat: as per HPI, epistaxis (with continued drainage down back of throat), no headache(s), no neck pain - Cardiovascular Cardiovascular: as per HPI, chest pain, no dyspnea, no palpitations - Respiratory Respiratory: as per HPI, pain on inspirtation, no cough, no dyspnea - Gastrointestinal Gastrointestinal: as per HPI, no abdominal pain, no diarrhea, no heartburn, no nausea, no vomiting - Genitourinary Genitourinary: as per HPI, no dysuria, no flank pain - Musculoskeletal Musculoskeletal: as per HPI, no weakness, no neck pain - Integumentary Integumentary: as per HPI - Neurological Neurological: as per HPI, no dizziness, no headache(s), no weakness - Psychiatric Psychiatric: as per HPI, anxiety Physical Examination Vital Signs: Vital Signs, Last 4 Hours Temp Pulse Resp BP Pulse Ox 07/12/16 06:00 47 19 98/67 98 07/12/16 05:03 14 96/65 97 07/12/16 05:00 48 17 96/65 97 07/12/16 04:00 97.8 F 50 19 104/70 95 07/12/16 03:19 100 07/12/16 03:00 82 20 106/59 97 07/12/16 02:58 29 97 General appearance: alert, other (mildly uncomfortable) Eyes: nonicteric ENT: oropharynx dry, other (crusting of blood around nostrils) Neck: supple, no lymphadenopathy, no JVD Effort: normal Inspection: normal Auscultation: bilateral: rhonchi Cardiovascular: regular rate and rhythm Gastrointestinal: normoactive bowel sounds, soft, non-tender, non-distended Integumentary: normal Extremities: no cyanosis, no edema, pink and warm, pulses normal Musculoskeletal: no deformities, ROM normal normal mental status, non-focal exam, pupils equal and round, motor strength normal and symmetric mood appropriate, affect normal, anxious Ventilator Settings Ventilator Settings: Ventilator Settings, Last 8 Hours Ventilator Mode VC+ Ventilator Mode A/C Ventilator Mode A/C Ventilator Mode VC+ Ventilator Mode VC+ Ventilator Tidal Volume 550 Setting Ventilator Tidal Volume 550 Setting Ventilator Tidal Volume 550 Setting Ventilator Tidal Volume 550 Setting Ventilator Tidal Volume 550 Setting Ventilator Respiratory Rate 12 Setting Ventilator Respiratory Rate 12 Setting Ventilator Respiratory Rate 12 Setting Ventilator Respiratory Rate 12 Setting Ventilator Respiratory Rate 12 Setting Actual Respiratory Rate 14 Actual Respiratory Rate 19 Actual Respiratory Rate 29 Positive End Expiratory 5 Pressure Positive End Expiratory 5 Pressure Positive End Expiratory 5 Pressure Positive End Expiratory 5 Pressure Positive End Expiratory 5 Pressure Peak Inspiratory Airway 22 Pressure Peak Inspiratory Airway 19 Pressure Peak Inspiratory Airway 12 Pressure Results - Laboratory Findings CBC and BMP: 07/12/16 03:00 07/12/16 03:00 ABG ABG pH 7.07 pH Units (7.32-7.45) L* 07/12/16 Unknown ABG pCO2 54 mmHg (35-45) H 07/12/16 Unknown ABG pO2 346 mmHg (85-104) H 07/12/16 Unknown ABG O2 Saturation 100 % (95-98) H 07/12/16 Unknown PT/INR, D-dimer PT 11.5 Seconds (9.4-12.1) 07/12/16 03:20 Abnormal lab findings: Abnormal lab results WBC 19.4 K/mcL (4.3-11.1) H D 07/12/16 03:00 Immature Gran % 4.8 % (0-4) H 07/12/16 03:00 Neutrophils # 9.9 K/mcL (1.6-8.9) H 07/12/16 03:00 Lymphocytes # 6.8 K/mcL (0.6-4.6) H 07/12/16 03:00 Monocytes # 1.4 K/mcL (0.0-1.3) H 07/12/16 03:00 Nucleated RBCs/100 WBC 0.1 /100 WBC (0) H 07/12/16 03:00 Reactive Lymphocytes Present (Not Present) A 07/12/16 03:00 Immature Plt Fraction 10.7 % (1.1-6.1) H 07/12/16 03:00 ABG pH 7.07 pH Units (7.32-7.45) L* 07/12/16 Unknown ABG pCO2 54 mmHg (35-45) H 07/12/16 Unknown ABG pO2 346 mmHg (85-104) H 07/12/16 Unknown ABG HCO3 15.6 mEQ/L (21-27) L 07/12/16 Unknown ABG Total CO2 17.3 mEq/L (20-26) L 07/12/16 Unknown ABG O2 Saturation 100 % (95-98) H 07/12/16 Unknown ABG Base Excess -14.8 mEq/L (-2.0 to 3.0) L 07/12/16 Unknown Carbon Dioxide 14 mEq/L (19-29) L 07/12/16 03:00 Glucose 164 mg/dL (70-99) H 07/12/16 03:00 POC Glucose 124 (58-89) H 07/11/16 17:36 Calcium 8.5 mg/dL (8.6-10.8) L 07/12/16 03:00 Ionized Calcium 1.10 mmol/L (1.15-1.35) L 07/12/16 03:00 Phosphorus 4.8 mg/dL (2.3-4.7) H 07/12/16 03:00 Troponin I 0.21 ng/mL (0-0.03) H* 07/11/16 13:58 - Clinical Findings Intake & Output: Intake & Output 07/11/16 07/11/16 07/12/16 15:59 23:59 07:59 Intake Total 1900 / 1900 210 / 210 Output Total 650 / 650 1070 / 1070 Balance 1250 / 1250 -860 / -860 Weight 92.442 kg
[2016-07-12] MEDS ORDERED: Lacri-Lube 3.5 GM TUBE BOTH EYES PRN (07:29)
[2016-07-12] MEDS ORDERED: *HR* Etomidate 40 MG/20 ML VIAL IVP ONE (08:15)
--- NOTE | 2016-07-12 08:39 | Cardiology Progress Note ---
Date of Encounter: 07/12/16 Time of Encounter: 08:40 Assessment and Plan (1) ST elevation (STEMI) myocardial infarction involving left circumflex coronary artery Current Visit: Yes Status: Acute S/p PTCA and BMS to the mLCX 99% stenosed artery. There was a 50% stenosis in the first diagonal artery and 70% stenosis in the mRCA. Mild disease remaining. Describes mid-sternal muscle skeletal pain after CPR. Pt being given home pain medication. EKG showed no acute changes after ACLS given. Check TTE. Continue asa, plavix, statin, and bb. Will need DAPT with asa and plavix for a minimum of one month. Pt reported frequent nose bleeds and was planning for cauterization with ENT yesterday that was not completed. He also is being worked up for seizures at [facility]. Possible step down later today if respiratory status is stable. (2) PEA (Pulseless electrical activity) Current Visit: Yes Status: Acute PEA vs vagal response to seizure. Pt responded quickly to ACLS. Minimum HR in telemetry was 42 BPM. No pauses. No VT. Continue to monitor. (3) Seizure Current Visit: No Status: Acute H/o seizures. Pt reported he still had seizures despite medications. Seizure medications now restarted. (4) Severe epistaxis Current Visit: No Status: Acute No nose bleed currently. Will need close f/u with ENT and may need cauterization while on plavix if able. Discussion w patient/family: The assessment and plan as outlined above was discussed with the patient and/or family members who expressed understanding and agreement. All questions were answered. Thank you for involving us in the care of your patient. Please call with any questions. Plan of care and assessment discussed with Dr. Womack who will personally see patient and make changes as deemed necessary. Subjective Principal diagnosis: STEMI, Seizure, PEA Interval history: Pt presented yesterday with chest pain from ENT office and found to have ST elevation on his EKG in the inferior leads. He was taken emergently to the component lab tech and found to have a 99% stenosis in the mid left circumflex artery. He received PTCA and BMS with good results. There was no complication from his procedure. Last night he had a seizure and went into PEA arrest with HR 40. The nurse was unable to detect a pulse and started CPR and called a code blue. He was given epi one time and responded. He required intubation d/t respiratory distress. They felt he may have aspirated. Pt is now awake and following commands. He is doing well on c-pap trial and they are preparing for extubation. He is currently having reproducible chest wall pain on my exam. He also c/o sweating and feeling hot. Past medical history includes CAD s/p [place] in 2012 with RCA stent at that time, seizures, DM type II, hypertension, and tobacco use. Objective Vital Signs, Last 4 Hours Temp Pulse Resp BP Pulse Ox 07/12/16 08:00 57 21 119/72 98 07/12/16 07:31 24 98 07/12/16 07:15 98.1 F 07/12/16 07:00 51 20 104/69 98 07/12/16 06:00 47 19 98/67 98 07/12/16 05:03 14 96/65 97 07/12/16 05:00 48 17 96/65 97 General: Conversant, No Apparent Distress HEENT: Atraumatic, Normocephaly, Mucus Membranes Moist, Other (ET tube and NG in place) Neck: No JVD, Normal carotid pulses Cardiac: Reg Rate and Rhythm, Normal S1 and S2, No Murmur Lungs: Other (Respirations easy on ventilator, rhonci scattered throughout) Neuro: Alert and responsive, No focal deficits noted Abdomen: Soft, Non-Tender Skin: No rashes noted on visualized skin, Other (skin warm and moist) Musculoskeletal: No Chest Wall Tenderness Extremities: No Clubbing, No Cyanosis, No Edema, Normal Pulses Results 07/12/16 03:00 07/12/16 03:00 Lab Results 07/12/16 07/12/16 07/12/16 03:00 03:00 03:20 WBC 19.4 H D Hgb 14.5 Hct 45.4 Plt Count 143 INR 1.1 APTT 31.1 Sodium 140 Potassium 3.6 Chloride 106 Carbon Dioxide 14 L BUN 12 Creatinine 0.90 Glucose 164 H Calcium 8.5 L Magnesium 1.9 - Imaging and Cardiology Echo: pending Cardiac cath: report reviewed - EKG Interpretation EKG results cardiology: personally reviewed (Sr with RBBB.), other (24 hour telemetry review shows AVg HR 58 bpm. minimum HR was 42 BPM. No significant pauses.) Consult Discharge Plan - Plan Referrals: Jerry Almeida MD [Primary Care Provider] -
[2016-07-12] MEDS: OXcarbazepine 150 MG TABLET PO SCH ×2 (08:47→20:16)
[2016-07-12] MEDS: Pantoprazole 40 MG VIAL IVP SCH (08:47)
[2016-07-12] MEDS: Chlorhexidine Rinse 15 ML MOUTHWASH MM SCH ×2 (08:47→19:37)
[2016-07-12] MEDS: Aspirin 81 MG TAB.CHEW PO SCH (08:48)
[2016-07-12] MEDS: *HR* HYDROcodone/Acet 5/325 mg TABLET PO PRN ×2 (08:48→23:20)
[2016-07-12] MEDS: Lacri-Lube 3.5 GM TUBE BOTH EYES SCH ×2 (08:50→12:18)
[2016-07-12] MEDS ORDERED: D5% in Water 1,000 ML IV PRN (11:58)
[2016-07-12] MEDS ORDERED: Dextrose Gel 15 GM PO PRN ×2 (11:58)
[2016-07-12] MEDS ORDERED: *HR* Dextrose 50 % in Water (Syg) 50 ML SYRINGE IVP PRN (11:58)
[2016-07-12] MEDS: Insulin LISPRO 300 UNITS/3 ML VIAL SQ SCH ×3 (12:18→18:06)
--- NOTE | 2016-07-12 14:21 | Event Note ---
Date of Encounter: 07/12/16 Time of Encounter: 14:18 - Cardiology Event Note 04/2016 pt had acute superficial venous thrombosis of left cephalic vein. He does not need to be on anticoagulation for this. Xarelto to remain discontinued. Continue ASA and Plavix s/p PCI.
[2016-07-12] MEDS ORDERED: hydrOXYzine pamoate 25 MG CAPSULE PO PRN (14:43)
[2016-07-12] MEDS ORDERED: clonazePAM 1 MG TABLET PO PRN (14:43)
--- NOTE | 2016-07-12 16:28 | Electrocardiograph Report ---
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
--- NOTE | 2016-07-12 16:31 | Electrocardiograph Report ---
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
--- NOTE | 2016-07-12 16:56 | Electrocardiograph Report ---
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
[2016-07-12] MEDS ORDERED: levETIRAcetam 250 MG TABLET PO SCH (18:00)
[2016-07-12] MEDS: *HR* Heparin 5,000 UNIT/ML VIAL SQ SCH (18:07)
[2016-07-12] MEDS: levETIRAcetam 250 MG TABLET PO SCH (18:07)
[2016-07-13] MEDS: *HR* HYDROcodone/Acet 5/325 mg TABLET PO PRN ×3 (06:30→21:09)
[2016-07-13] MEDS: levETIRAcetam 250 MG TABLET PO SCH ×2 (06:30→16:55)
[2016-07-13] MEDS: *HR* Heparin 5,000 UNIT/ML VIAL SQ SCH ×2 (06:30→16:55)
[2016-07-13 06:32] LABS: Basophils # 0.1 K/mcL (0.0-0.2); Basophils % 0.5 %; Eosinophils # 0.1 K/mcL (0.0-0.6); Eosinophils % 1.1 %; Hematocrit 38.5 % (37.5-50.1); Hemoglobin 13.1 g/dL (12.9-16.9); Immature Granulocytes % 1.9 % (0-4); Lymphocytes # 2.6 K/mcL (0.6-4.6); Lymphocytes % 21.5 %; Mean Corpuscular Hemoglobin 30.6 pg (28.0-33.3); Mean Platelet Volume 11.9 fL (9.4-12.4); Monocytes % 8.7 %; Neutrophils # 7.9 K/mcL (1.6-8.9); Platelet Count 107 K/mcL (140-400); Red Blood Count 4.28 M/mcL (4.19-5.50); Red Cell Distribution Width 13.6 % (11.5-14.5); Segmented Neutrophils % 66.3 %
[2016-07-13 06:43] LABS: BUN/Creatinine Ratio 14 (6-26); Blood Urea Nitrogen 11 mg/dL (8-26); Calcium 8.6 mg/dL (8.6-10.8); Carbon Dioxide 22 mEq/L (19-29); Chloride 109 mEq/L (98-109); Glucose 108 mg/dL (70-99); Magnesium 1.9 mg/dL (1.6-2.6); Osmolality,Calculated 292 (280-300); Sodium 141 mEq/L (136-145); eGFR For African Americans > 60 (> 60); eGFR For Non-African Americans > 60 (> 60)
[2016-07-13] MEDS: OXcarbazepine 150 MG TABLET PO SCH ×2 (08:44→21:09)
[2016-07-13] MEDS: Insulin LISPRO 300 UNITS/3 ML VIAL SQ SCH ×3 (08:44→16:54)
[2016-07-13] MEDS: Aspirin 81 MG TAB.CHEW PO SCH ×2 (08:44→08:45)
[2016-07-13] MEDS: Pantoprazole 40 MG VIAL IVP SCH (08:44)
[2016-07-13] MEDS: Chlorhexidine Rinse 15 ML MOUTHWASH MM SCH ×2 (08:45→21:10)
--- NOTE | 2016-07-13 10:17 | Cardiology Progress Note ---
Date of Encounter: 07/13/16 Time of Encounter: 10:15 Assessment and Plan (1) PEA (Pulseless electrical activity) Current Visit: Yes Status: Acute PEA vs vagal response to seizure. Pt responded quickly to ACLS. Minimum HR in telemetry was 42 BPM. No pauses. No VT. Continue to monitor. Will watch another day (2) ST elevation (STEMI) myocardial infarction involving left circumflex coronary artery Current Visit: Yes Status: Acute S/p PTCA and BMS to the mLCX 99% stenosed artery. There was a 50% stenosis in the first diagonal artery and 70% stenosis in the mRCA. Mild disease remaining. Describes mid-sternal muscle skeletal pain after CPR. Pt being given home pain medication. EKG showed no acute changes after ACLS given. Check TTE. Continue asa, plavix, statin, and bb. Will need DAPT with asa and plavix for a minimum of one month. Pt reported frequent nose bleeds and was planning for cauterization with ENT yesterday that was not completed. He also is being worked up for seizures at [facility]. Possible home tomorrow if no issues. (3) Seizure disorder Current Visit: Yes Status: Chronic Continue home meds Has outpt appt this coming week for ongoing assessment. Discussion w patient/family: The assessment and plan as outlined above was discussed with the patient and/or family members who expressed understanding and agreement. All questions were answered. Thank you for involving us in the care of your patient. Please call with any questions. Subjective Principal diagnosis: STEMI, Seizure, PEA Interval history: Patient is still sore from chest compressions 2 nights ago - no new issues or complaints. Objective Vital Signs, Last 4 Hours Temp Pulse Resp BP Pulse Ox 07/13/16 07:00 98.5 F 62 15 116/58 95 General: Conversant HEENT: Atraumatic, Mucus Membranes Moist Neck: No JVD, Other (supple) Cardiac: Reg Rate and Rhythm, Normal S1 and S2 Lungs: Normal Breath Sounds, No Wheeze, Rales, Rhonchi Neuro: Alert and responsive, No focal deficits noted Abdomen: Soft, Non-Tender Skin: No rashes noted on visualized skin Musculoskeletal: Other (chest mildly tender to palpation) Extremities: No Clubbing, No Cyanosis Results 07/13/16 05:59 07/13/16 05:59 Lab Results 07/13/16 07/13/16 05:59 05:59 WBC 12.0 H Hgb 13.1 Hct 38.5 Plt Count 107 L Sodium 141 Potassium 4.0 Chloride 109 Carbon Dioxide 22 BUN 11 Creatinine 0.76 Glucose 108 H Calcium 8.6 Magnesium 1.9 - Imaging and Cardiology Cardiac cath: image reviewed Consult Discharge Plan - Plan Referrals: Jerry Almeida MD [Primary Care Provider] -
--- NOTE | 2016-07-13 12:54 | ECHO - Doppler Report ---
Echocardiogram Name: Juan Najera Date of Study: 07/13/2016 Date: 1955 Ht: 70.0 in Medical Record#: [id number] Age: 60 Wt: 204.0 lb Gender: Male BSA: 2.1 Order #: [id number] Location: [facility] Room #: 2NE21 Reading Physician: Gauri Lawrence DO Gas Tester: Adrienne Burt Ordering Physician: Darin Lindsay CNP Primary Physician: Jerry Almeida MD Indications: STEMI Impressions: LVEF 60%. There is evidence of moderate diastolic dysfunction of the left ventricle. Normal right ventricular size and function. Mild mitral regurgitation. No pulmonary hypertension. Left Ventricular Wall Motion: Rest Echo Findings All wall segments showed normal motion. Findings: Study Quality * Technically adequate exam. ECG Findings * Normal sinus rhythm. Left Ventricle * LVEF 60%. * Basal sigmoid septum. * Moderate left ventricular diastolic dysfunction. Left Atrium * Normal left atrial size. Mitral Valve * Normal mitral valve structure. * Mild mitral annular calcification * Mild mitral regurgitation. * No mitral stenosis. Aortic Valve * No aortic regurgitation. * Trileaflet aortic valve. * Mildly calcified aortic valve leaflets. * No aortic stenosis. Tricuspid Valve * Tricuspid valve not well visualized. * Trace tricuspid regurgitation. * Estimated RA pressure is 3 mmHg. * Estimated RVSP is 21 mmHg. * No pulmonary hypertension. Pulmonic Valve * Pulmonic valve is not well visualized. * No pulmonic stenosis. * No pulmonic regurgitation. Pulmonary Artery * Pulmonary artery not well visualized. Right Ventricle * Normal right ventricular structure and function. Right Atrium * Normal right atrial size. Interatrial Septum * No evidence of PFO by color Doppler. IVC * Normal IVC dimensions and inspiratory collapse. Pericardium * There is no pericardial effusion present. Aorta * Normally sized aortic root. History Hypertension Diabetes History of Smoking Years 45 Packs 0.5 Family History of CAD History of CAD/PTCA Myocardial Infarction 10/09/2012 a Previous Echo was performed. Measurements: BP: 116/ 58 2D Normal Values IVSd: 1.50 cm 0.6 - 1.0 cm LVIDd: 4.50 cm 3.7 - 5.6 cm LVPWd: 1.20 cm 0.6 - 1.1 cm LVIDs: 2.70 cm 1.5 - 3.6 cm AO: 2.80 cm < 4.0 cm LA: 4.30 cm 2.0 - 4.0cm %FS: 40.00 cm >25 % LA volume: 61 Mitral Valve Peak E:1.03 m/sec Peak A:.51 m/sec E/A Ratio:2 Peak E' Lat Robert:13.4 cm/s Peak E' Med Robert:6.34 cm/s E/E' Lat Ratio:7.7 E/E' Med Ratio:16.2 Tricuspid Valve TV Regurg Peak Grad: 18.00mmHg TV Regurg Peak Robert: 2.10m/sec Updated by Gauri Lawrence on 07/13/2016 12:48:33 PM electronically signed on 07/13/2016 12:49:31 PM with status of Final Wall Motion Guan: 1=Normal, 2=Hypokinesis, 3=Akinesis, 4=Dyskinesis, 5=Aneurysmal, 6=Hyperkinetic, X=Not Visualized (Blank)=Missing
[2016-07-13 15:33] LABS: Phenytoin (Dilantin) Free <0.5 ug/mL (1.0-2.5); Phenytoin Dose NOT PROVIDED; Phenytoin Dose Frequency NOT PROVIDED; Phenytoin Route NOT PROVIDED
[2016-07-14] MEDS: *HR* HYDROcodone/Acet 5/325 mg TABLET PO PRN (03:39)
[2016-07-14] MEDS: levETIRAcetam 250 MG TABLET PO SCH (06:32)
[2016-07-14] MEDS: *HR* Heparin 5,000 UNIT/ML VIAL SQ SCH (06:32)
[2016-07-14 07:12] VITALS: BP 119/68
[2016-07-14] MEDS: Chlorhexidine Rinse 15 ML MOUTHWASH MM SCH (08:53)
[2016-07-14] MEDS: Pantoprazole 40 MG VIAL IVP SCH (08:53)
[2016-07-14] MEDS: OXcarbazepine 150 MG TABLET PO SCH (08:53)
[2016-07-14] MEDS: Aspirin 81 MG TAB.CHEW PO SCH ×2 (08:53→08:55)
[2016-07-14] MEDS: Insulin LISPRO 300 UNITS/3 ML VIAL SQ SCH ×2 (08:54→12:16)
--- NOTE | 2016-07-14 09:30 | Discharge Summary ---
Date of Encounter: 07/14/16 Time of Encounter: 09:24 - Discharge Diagnosis (1) ST elevation (STEMI) myocardial infarction involving left circumflex coronary artery Priority: Primary Status: Acute (2) PEA (Pulseless electrical activity) Priority: Primary Status: Acute (3) Seizure Priority: Primary Status: Acute (4) Severe epistaxis Priority: Secondary Status: Chronic - Discharge Medications Prescriptions: Atorvastatin [Lipitor] 20 mg PO HS #30 tablet Lisinopril [Zestril] 2.5 mg PO DAILY #30 tablet Metoprolol [Lopressor] 25 mg PO BID #60 tablet Nicotine Patch [Nicoderm] 21 mg TD DAILY #14 patch.td24 Home Medications: Albuterol Sulfate [Proair Hfa] 2 puff IH QID PRN 04/19/16 [History] Aspirin 81 mg PO DAILY 04/19/16 [History] ClonazePAM [Klonopin] 2 mg PO TID PRN 04/19/16 [History] Clopidogrel [Plavix] 75 mg PO DAILY 04/19/16 [History] Docusate [Colace] 100 mg PO DAILY PRN 04/19/16 [History] Fluticasone Propionate Nasal [Flonase] 50 mcg NS DAILY 04/19/16 [History] Hydroxyzine HCl 25 mg PO TID PRN 04/19/16 [History] Linagliptin [Tradjenta] 5 mg PO DAILY 04/19/16 [History] Loratadine [Claritin] 10 mg PO DAILY 04/19/16 [History] Metformin HCl [Glucophage] 1,000 mg PO BID 04/19/16 [History] Nitroglycerin [Nitrostat] 0.4 mg SL AD PRN 04/19/16 [History] [place]-3S/Dha/Epa/Fish Oil [Fish Oil 1,200 mg Softgel] 1 each PO DAILY 04/19/16 [ History] Oxcarbazepine [Trileptal] 300 mg PO BID 04/19/16 [History] Oxycodone HCl 20 mg PO TID PRN 04/19/16 [History] Pantoprazole Sodium [Protonix] 40 mg PO DAILY 04/19/16 [History] Phenytoin ER [Dilantin ER] 100 mg PO TID 04/19/16 [History] Trazodone HCl 100 mg PO HS 04/19/16 [History] LevETIRAcetam [Keppra] 1,000 mg PO Q12HR 30 Days 04/23/16 [Rx] Benzonatate [Tessalon] 200 mg PO TID PRN #20 capsule 06/17/16 [Rx] Doxycycline 100 mg PO BID #14 capsule 06/17/16 [Rx] PredniSONE 20 mg PO BID #10 tablet 06/17/16 [Rx] Omeprazole [PriLOSEC] 40 mg PO DAILY 07/11/16 [History] Atorvastatin [Lipitor] 20 mg PO HS #30 tablet 07/14/16 [Rx] Lisinopril [Zestril] 2.5 mg PO DAILY #30 tablet 07/14/16 [Rx] Metoprolol [Lopressor] 25 mg PO BID #60 tablet 07/14/16 [Rx] Nicotine Patch [Nicoderm] 21 mg TD DAILY #14 patch.td24 07/14/16 [Rx] Allergies/Adverse Reactions: Allergies levofloxacin [From Levaquin] Allergy (Verified 07/11/16 14:47) Hives naproxen Allergy (Verified 07/11/16 14:47) Hives Procedures/tests Complete & Pending: Procedures Performed prior 72 hours Category Date Time Status ECG 12 lead ECG [ECG] Stat Y 07/12/16 03:32 Completed EV echocardiogram Routine Y 07/13/16 09:42 Completed Date of admission: 07/11/16 15:17 Primary care physician: Jerry Almeida MD Consults: 07/11/16 15:45 Consult to Cardiac Rehabilitation-Phase1 [CONS] Routine Comment: Reason for Consult: post op cath Call Completed: Yes Discharging clinician: Darin Lindsay Anticipated date of discharge: 07/14/16 - Patient Status Disposition: Home, Self-Care Condition: Good Functional capacity at discharge: independent ambulation Overall status at discharge: patient is progressing back to baseline - Discharge Instructions Follow Up With: Jerry Almeida MD [Primary Care Provider] - Additional Instructions: RISK FACTORS: STOP SMOKING: If you smoke, STOP. Smoking or tobacco use significantly increases your risk of heart disease because nicotine causes the arteries to narrow or constrict. It also causes fats to stick to the artery. Your chances of having a heart attack are greatly increased if you continue to smoke. For more information, call the education line for smoking cessation 4-692-[id number] EAT A LOW FAT/CHOLESTEROL/SODIUM DIET: This diet may help reduce your chances of having a heart attack. LIFTING: Avoid lifting anything more than 10 pounds for 5-7 days Prior to straining, laughing, sneezing and/or coughing, apply manual pressure directly over insertion site. ACTIVITY: You may walk or climb stairs as tolerated You can resume sexual activity as tolerated In general, you are encouraged to engage in a minimum of 30 minutes or more of moderate intensity physical activity, such as brisk walking, daily or at least 3 -4 times weekly BATHING Do not submerge the site into water (bath tub, hot tub, swimming pool) for 1 week. This can be a source for infection into the blood stream. You may shower after 24 hours SITE CARE: After 24 hours, you may remove the dressing and leave the site open to air. Keep the site clean and dry. Clean gently and pat dry. You can expect bruising and tenderness that gradually resolve within a week or two. Return to work as instructed per your physician Resume driving as instructed per physician Keep all scheduled follow up appointments Resume medications as instructed IMPORTANT: If prescribed a Platelet Aggregation Inhibitor such as, Plavix, Brilinta or Effient: Duration of therapy is minimum one year These medications are often used in combination with Aspirin in prevention of future heart attacks Never discontinue unless consult with your Continuous Dryout Operator Helper STROKE (CVA) Risk factors for a stroke are: Age, cigarette smoking, diabetes, excessive alcohol consumption, family history, high blood pressure, overweight, physical inactivity, prior stroke, heart attack, diagnosis of carotid artery stenosis or other artery disease. Warning signs: Sudden numbness or weakness of the face, arm or leg; especially on one side of the body, sudden confusion, trouble speaking or understanding, sudden trouble seeing in one or both eyes, sudden trouble walking, dizziness, loss of balance or coordination, sudden severe headache with no cause. Call 911 or go to the Emergency Room. CONGESTIVE HEART FAILURE: If you have been diagnosed with Congestive Heart Failure (CHF) and your symptoms return, make an appointment with your physician Weigh yourself daily. Notify your physician if you have a weight gain of two or more pounds in one day or five or more pounds in one week. If you experience any difficulty breathing, please call 911 BLEEDING: Although the risk of bleeding is minimal, it can happen. If you have any bleeding from the site, apply firm pressure above the puncture site for 10-15 minutes. If the bleeding does not stop, continue manual pressure and call 911 Contact your physician if: You develop a fever greater than 101 degrees Fahrenheit Your site becomes reddened or has any drainage You have an increase in pain or burning at the site or if a large knot forms at the site. If you experience chest pain, shortness of breath, dizziness, or extreme tiredness, stop the activity and rest. Please notify your physicians office if you experience any of these symptoms and they are not relieved by rest please call 911! - Diet and Activity Activity: increase activity as tolerated Diet: low fat, low cholesterol, low salt diet - Hospital Course Hospital course: Mr. Najera is a 60 year old male who presented from the ENT office with chest pain and increasing SOB for one week. His EKG showed changes concerning for acute inferior [place]. He received PTCA and BMS to the mLCX 99% stenosed artery. There was a 50% stenosis in the first diagonal artery and 70% stenosis in the mRCA. Mild disease remaining otherwise. There was no complications from his heart catheterization. Unfortunately he had a grand mal seizure that evening. On assessment by the nurse he was thought to not have a pulse and CPR was started. He was given epinephrine times one and was moving in the bed at that time. Patient was thought to have PDA versus vagal response. He was also intubated due to concerns for aspiration and inability to protect airway. CXR showed worsening pulmonary vascular congestion. TTE after event showed normal LV function and no significant valvular disease. EKG showed no acute changes after ACLS given. There was moderate diastolic dysfunction. He was extubated early the next morning. He is now 96%Spo2 on room air. He appears to be euvolemic on exam. Describes mid-sternal muscle skeletal pain and upper back pain after CPR. Pt being given home pain medication. Importance of D APTT with aspirin and Plavix uninterrupted for a minimum of 1 month discussed with patient. He was initially being seen by ENT for severe epistaxis. He did not have any nosebleeds during his hospital stay. Continue asa, plavix, statin, and bb. He also is being worked up for seizures at [facility] and has appt for MRI this Friday. He will continue his seizure medications. Follow-up will be made by [facility] in 7-10 days. Pt states his PCP is no longer practicing. We will attempt to make appt for residency clinic. Time spent discussing smoking cessation with patient: more than 10 minutes ( Patient is ready to quit. He is agreeable to nicotine patch.) - Time Spent with Patient Total time spent providing and/or coordinating discharge services:1hr. Greater than 30 minutes Physical Examination Vital Signs, Last 4 Hours Temp Pulse Resp BP Pulse Ox 07/14/16 07:00 98.5 F 55 15 119/68 94 L General: Conversant, No Apparent Distress HEENT: Atraumatic, Normocephaly, Mucus Membranes Moist Neck: No JVD, Normal carotid pulses Cardiac: Reg Rate and Rhythm, Normal S1 and S2, No Murmur Lungs: Normal Breath Sounds, No Wheeze, Rales, Rhonchi Neuro: Alert and responsive, No focal deficits noted Abdomen: Soft, Non-Tender Skin: No rashes noted on visualized skin Musculoskeletal: No Chest Wall Tenderness Extremities: No Clubbing, No Cyanosis, No Edema, Normal Pulses, Other (Right groin without hematoma, redness, or drainage.)
[2016-07-15 08:10] LABS: Phenytoin (Dilantin) Free <0.5 ug/mL (1.0-2.5); Phenytoin Type of Draw NOT PROVIDED
== END 2016-07-14 14:15 | disposition home or self-care (01) | DRG 174 ==
LOC: EMEROO 13:37 → ICNU 15:03 → 2NENU 07-12 23:10
PROVIDERS: ADMIT Internal Medicine Interventional Cardiology; ATTEND Internal Medicine

== ENCOUNTER 2017-02-16 13:30 | Inpatient (IN) ==
[2017-02-16] MEDS ORDERED: levETIRAcetam 1,000 MG in 0.9 % Sodium Chloride 100 ML IVPB ONE (13:32)
[2017-02-16 13:43] LABS: Basophils # 0.1 K/mcL (0.0-0.2); Basophils % 0.5 %; Eosinophils % 0.2 %; Hematocrit 44.7 % (37.5-50.1); Hemoglobin 15.4 g/dL (12.9-16.9); Immature Granulocytes % 1.5 % (0-4); Lymphocytes # 3.1 K/mcL (0.6-4.6); Lymphocytes % 18.9 %; Mean Corpuscular HGB Conc 34.5 g/dL (31.6-35.5); Mean Corpuscular Hemoglobin 30.2 pg (28.0-33.3); Mean Corpuscular Volume 87.6 fL (83.0-100.0); Mean Platelet Volume 11.4 fL (9.4-12.4); Monocytes # 1.1 K/mcL (0.0-1.3); Monocytes % 6.7 %; Neutrophils # 11.6 K/mcL (1.6-8.9); Platelet Count 165 K/mcL (140-400); Segmented Neutrophils % 72.2 %
--- NOTE | 2017-02-16 13:47 | Emergency Department Note ---
START Narrative - START START: I examined this patient and my medical decision-making was reviewed with the Resident Physician. I agree with the documented findings, disposition and treatment plan as described except to the extent set forth below. 7-year-old male presents emergency room for seizure. Patient was just seen in the ER by ourselves and upon discharge had a recurrent seizure in the parking lot. We checked his Dilantin level earlier and it was normal. The Keppra and Trileptal levels were send outs. He seemed well and felt like he was good enough to go home. He has a long extensive history of EPILEPSY. He states he felt like he was at his baseline. He then subsequently had a seizure out in the parking lot. This was not witnessed by myself or the resident. I ordered some IV Keppra 1 g due to this being his second seizure today. We will check some screening lab work sent do a head CT as he fell in the parking lot. Likely anticipate admission at this point for recurrent seizures.
[2017-02-16 13:56] LABS: BUN/Creatinine Ratio 10 (6-26); Blood Urea Nitrogen 8 mg/dL (8-26); Calcium 9.4 mg/dL (8.6-10.8); Carbon Dioxide 21 mEq/L (19-29); Chloride 105 mEq/L (98-109); Glucose 103 mg/dL (70-99); Osmolality,Calculated 283 (280-300); Potassium 3.4 mEq/L (3.5-4.5); Sodium 137 mEq/L (136-145); eGFR For African Americans > 60 (> 60); eGFR For Non-African Americans > 60 (> 60)
--- NOTE | 2017-02-16 14:03 | Emergency Department Note ---
Disposition Clinical Impression: Seizure Disposition: Admitted As Inpatient Condition: Fair Forms: ED Satisfaction Letter Time of Disposition: 15:59 General Adult HPI - General Chief complaint: ED Seizure Stated complaint: seizure Time Seen by Provider: 02/16/17 13:32 Source: patient, other Limitations: no limitations Nursing Notes Reviewed: Yes Vital Signs Reviewed: Yes - History of Present Illness HPI Narrative: Patient is a 61 -year-old male that presents to the emergency department after a seizure. The patient had just been discharged from the emergency department. He had a seizure earlier today which is evaluated for. He stated that he had a long-standing seizure history for which he takes multiple medications. Patient say that he has been taking all the medications appropriately. Patient states that he has a seizure every couple of weeks. Patient denied any loss of bowel or bladder control during his seizure. Patient states that he is feeling well and has no pain at this time. He does mention that he has a scrape on his right shoulder and on his right hand from his seizure. Otherwise the patient states that he is doing fine. Patient denies any chest pain, shortness of breath, abdominal pain, numbness, tingling or any weakness. Pain Scale: 0 - Related Data Home Medications Medication Instructions Recorded Confirmed Albuterol Sulfate [Proair Hfa] 2 puff IH QID PRN 04/19/16 07/11/16 Aspirin 81 mg PO DAILY 04/19/16 07/11/16 Clopidogrel [Plavix] 75 mg PO DAILY 04/19/16 07/11/16 Docusate [Colace] 100 mg PO DAILY PRN 04/19/16 07/11/16 Fluticasone Propionate Nasal 50 mcg NS DAILY 04/19/16 07/11/16 [Flonase] Linagliptin [Tradjenta] 5 mg PO DAILY 04/19/16 07/11/16 Loratadine [Claritin] 10 mg PO DAILY 04/19/16 07/11/16 Metformin HCl [Glucophage] 1,000 mg PO BID 04/19/16 07/11/16 Nitroglycerin [Nitrostat] 0.4 mg SL AD PRN 04/19/16 07/11/16 OXcarbazepine [Trileptal] 300 mg PO BID 04/19/16 07/11/16 [place]-3S/Dha/Epa/Fish Oil [Fish 1 each PO DAILY 04/19/16 07/11/16 Oil 1,200 mg Softgel] Oxycodone HCl 20 mg PO TID PRN 04/19/16 07/11/16 Pantoprazole Sodium [Protonix] 40 mg PO DAILY 04/19/16 07/11/16 Phenytoin ER [Dilantin ER] 100 mg PO TID 04/19/16 07/11/16 Trazodone HCl 100 mg PO HS 04/19/16 07/11/16 clonazePAM [Klonopin] 2 mg PO TID PRN 04/19/16 07/11/16 hydrOXYzine HCl [Hydroxyzine HCl] 25 mg PO TID PRN 04/19/16 07/11/16 Omeprazole [PriLOSEC] 40 mg PO DAILY 07/11/16 07/11/16 Previous Rx's Medication Instructions Recorded LevETIRAcetam [Keppra] 1,000 mg PO Q12HR 30 Days 04/23/16 predniSONE [PredniSONE] 20 mg PO BID #10 tablet 06/17/16 Atorvastatin [Lipitor] 20 mg PO HS #30 tablet 07/14/16 Lisinopril [Zestril] 2.5 mg PO DAILY #30 tablet 07/14/16 Metoprolol [Lopressor] 25 mg PO BID #60 tablet 07/14/16 Nicotine Patch [Nicoderm] 21 mg TD DAILY #14 patch.td24 07/14/16 Albuterol Sulfate [Albuterol 1 puff IH QID PRN #1 puff 07/19/16 Inhaler] Budesonide/Formoterol 80/4.5 2 puff IH BID #1 hfa.aer.ad 07/19/16 [Symbicort 80/4.5] Phenazopyridine [Pyridium] 200 mg PO TID #6 tablet 07/19/16 Amoxicillin 875 mg PO BID #20 tablet 09/16/16 Blood-Glucose Meter, Drum-Type 1 each ACHS #1 kit 09/16/16 [Accu-Chek] Guaifenesin [Mucinex] 1,200 mg PO BID PRN #30 tab.er.12h 09/16/16 predniSONE [Prednisone] 20 mg PO DAILY #5 tablet 09/16/16 Clotrimazole [Itch Relief] 1 gm TP BID #15 cream..g. 10/14/16 Sulfamethoxazole/Trimeth DS 1 each PO BID #14 tablet 10/14/16 [Bactrim DS] Allergies Allergy/AdvReac Type Severity Reaction Status Date / Time levofloxacin [From Levaquin] Allergy Hives Verified 07/11/16 14:47 naproxen Allergy Hives Verified 07/11/16 14:47 All systems ED: reviewed and negative except as stated. Constitutional: Denies: fever, chills Eyes: Reports: as per HPI ENT ED: Reports: as per HPI Cardiovascular: Denies: chest pain Respiratory: Denies: dyspnea Gastrointestinal: Denies: abdominal pain, nausea, vomiting Genitourinary: Reports: as per HPI Musculoskeletal: Reports: as per HPI Integumentary: Reports: abrasion (Right shoulder and right hand abrasions) Neurological: Denies: weakness, numbness, paresthesias Psychiatric: Reports: as per HPI Endocrine: Reports: as per HPI Hematological/Lymphatic: Reports: as per HPI Allergic/Immunologic: Reports: as per HPI Past Medical History - Past Medical History Medical history: Reports: arthritis, coronary artery disease, diabetes, GERD, hyperlipidemia, hypertension, myocardial infarction, seizures, other Surgical history: Reports: angioplasty/stent (2 stents (last July 12, 2016) , appendectomy, cholecystectomy, herniorrhaphy, knee replacement Psychiatric history: Reports: anxiety, depression, panic disorder, other - Social History Smoking Status: Current every day smoker Smokeless Tobacco Status: No Alcohol use: Reports: none Drug use: Reports: none Physical Exam - General Limitations: no limitations, other (Patient was originally post ictal but there are now no limitations ) General appearance: alert, in no apparent distress - Head Head exam: atraumatic, normocephalic - Eye Eye exam: Present: normal appearance, PERRL, EOMI - Neck Neck exam: Present: normal inspection, full ROM, trachea midline - Respiratory Respiratory exam: Present: normal lung sounds bilaterally. Absent: respiratory distress, wheezes - Cardiovascular Cardiovascular exam: Present: regular rate, normal rhythm, normal heart sounds, +S1, +S2 - Abdominal Exam Abdominal exam: Present: soft, Non-Tender, normal bowel sounds - Neurological Exam Neurological exam: Present: alert, oriented X3, CN II-XII intact. Absent: motor sensory deficit - Expanded Neurological Exam Patient oriented to: Present: person, place, time Cranial nerves: EOM function (II, III, IV, ): Normal, facial sensation (V): Normal, facial palsy (VII): Normal, gag reflex (IX): Normal, spinal accessory function (XI): Normal, tongue deviation (XII): Normal Cerebellar function: finger to nose: Normal, heel to ferrari: Normal Motor strength - LUE: 5/5 Motor strength - RUE: 5/5 Motor strength - LLE: 5/5 Motor strength - RLE: 5/5 Sensory exam upper extremity: light touch: Normal Sensory exam lower extremity: light touch: Abnormal Left, Abnormal Right ( Patient states that he has some decreased sensation in the bilateral lower extremities due to diabetic neuropathy.) Coma Scale Eye Opening: Spontaneous Coma Scale Motor Response: Obeys Commands Coma Scale Verbal Response: Oriented Coma Scale Total: 15 - Psychiatric Psychiatric exam: Present: normal affect, normal mood - Skin Skin exam: Present: warm, dry, intact Course - Consultations Consultation #1: I called and spoke with Dr. Gloria and he agreed with admitting the patient for observation. He did recommend giving 1 mg of Ativan now and 0.5 mg of Ativan twice a day. He also recommended that we get a urine on this patient. This will be obtained and the patient will be admitted to the hospital. Time: 15:10 Consultation #2: I called and spoke with Dr. Butler the hospitalist and he has accepted the patient to his service. I informed him that the neurologist wanted 0.5 Ativan twice a day. He has accepted the patient to his service and the patient will be admitted to the hospital. Time: 15:24 Vital Signs Temperature 98.7 F 02/16/17 13:31 Pulse Rate 88 02/16/17 13:31 Respiratory Rate 16 02/16/17 13:31 Blood Pressure 172/98 02/16/17 13:31 O2 Sat by Pulse Oximetry 97 02/16/17 13:31 Temperature 98.7 F 02/16/17 13:31 Pulse Rate 57 02/16/17 13:57 Respiratory Rate 16 02/16/17 13:57 Blood Pressure 141/77 02/16/17 13:57 O2 Sat by Pulse Oximetry 97 02/16/17 13:57 Oxygen Delivery Oxygen Delivery Nasal Cannula Medical Decision Making - MDM Narrative Medical decision making narrative: Due to the patient having a history of seizures and recently being discharged and having another seizure while leaving the hospital and we have ordered a CBC , BMP, EKG as well as a CT of the head. Head CT showed no acute intracranial process. He showed sinus bradycardia. Patient did have an elevated white count of 16.2 and a potassium of 3.4 otherwise laboratory results were unremarkable. I called and spoke with the neurologist who recommended that we give a milligram of Ativan now and admit the patient for observation and have the patient take 0.5 mg Ativan twice a day I called and spoke with Dr. Butler the hospitalist and he has accepted the patient to his services. The patient will be admitted to the hospital at this time. - Medical Records Medical records reviewed: Yes I reviewed the patient's medical records. - Lab Data Lab results reviewed: Yes I reviewed the patient's lab results. Result diagrams: 02/16/17 13:36 02/16/17 13:36 Lab Results 02/16/17 02/16/17 Range/Units 13:36 13:36 WBC 16.2 H (4.3-11.1) K/mcL RBC 5.10 (4.19-5.50) M/mcL Hgb 15.4 (12.9-16.9) g/dL Hct 44.7 (37.5-50.1) % MCV 87.6 (83.0-100.0) fL MCH 30.2 (28.0-33.3) pg MCHC 34.5 (31.6-35.5) g/dL RDW 13.0 (11.5-14.5) % Plt Count 165 (140-400) K/mcL MPV 11.4 (9.4-12.4) fL Immature Gran % 1.5 (0-4) % Seg Neutrophils % 72.2 % Lymphocytes % 18.9 % Monocytes % 6.7 % Eosinophils % 0.2 % Basophils % 0.5 % Neutrophils # 11.6 H (1.6-8.9) K/mcL Lymphocytes # 3.1 (0.6-4.6) K/mcL Monocytes # 1.1 (0.0-1.3) K/mcL Eosinophils # 0.0 (0.0-0.6) K/mcL Basophils # 0.1 (0.0-0.2) K/mcL Immature Plt Fraction 9.0 H (1.1-6.1) % Sodium 137 (136-145) mEq/L Potassium 3.4 L (3.5-4.5) mEq/L Chloride 105 (98-109) mEq/L Carbon Dioxide 21 (19-29) mEq/L BUN 8 (8-26) mg/dL Creatinine 0.80 (0.72-1.25) mg/dL Est GFR ( Amer) > 60 (> 60) Est GFR (Non-Af Amer) > 60 (> 60) BUN/Creatinine Ratio 10 (6-26) Glucose 103 H (70-99) mg/dL Calculated Osmolality 283 (280-300) Calcium 9.4 (8.6-10.8) mg/dL - Radiology Data Radiology results reviewed: Yes I reviewed the patient's radiology results. Head CT 02/16/17 13:34 IMPRESSION: No acute intracranial abnormality. D/ / Saran Etienne MD / Saran Etienne MD Interpreting Provider: Saran Etienne MD - EKG Data EKG #1 EKG attestation: Yes I reviewed and interpreted this EKG. EKG results narrative: EKG showed sinus bradycardia with a rate of 59 bpm, NH interval of 156, QRS duration of 151, QTC of 458. There is a right bundle branch block present on this EKG. No ischemic changes noted on the EKG. This is compared to previous EKG on 07/12/16 and the right bundle branch block was present on this EKG.
[2017-02-16] MEDS ORDERED: *HR* LORazepam 2 MG/ML VIAL IVP ONE (15:11)
[2017-02-16] MEDS ORDERED: Ondansetron 4 MG/2 ML VIAL IVP PRN (16:14)
[2017-02-16] MEDS ORDERED: Naloxone 0.4 MG/ML INJ IVP PRN (16:14)
[2017-02-16] MEDS ORDERED: D5% in Water 1,000 ML IVC PRN (16:19)
[2017-02-16] MEDS ORDERED: Dextrose Gel 15 GM PO PRN ×2 (16:19)
[2017-02-16] MEDS ORDERED: *HR* Dextrose 50 % in Water (Syg) 50 ML SYRINGE IVP PRN (16:19)
[2017-02-16 16:34] LABS: Bilirubin,Urine Negative (Negative); Blood,Urine Negative (Negative); Clarity,Urine Clear (Clear); Color,Urine Yellow (Yellow); Glucose,Urine (UA) Normal (Normal); Ketones,Urine Negative (Negative); Leukocyte Esterase,Urine Negative (Negative); Nitrite,Urine Negative (Negative); Protein,Urine 30 mg/dL (Neg-Trace); Specific Gravity,Urine 1.018 (1.010-1.025); Urobilinogen,Urine Normal (Normal)
[2017-02-16 16:37] LABS: Bacteria,Urine None Seen per hpf (None-Few); Hyaline Casts,Urine None Seen per lpf (None-Few); RBC,Urine 0-3 per hpf (0-3); Squamous Epithelial Cell,Urine Many per lpf (None-Few)
[2017-02-16] MEDS ORDERED: *HR* OxyCODONE Immed Rel 5 MG TABLET PO PRN (17:08)
[2017-02-16] MEDS ORDERED: *HR* LORazepam 2 MG/ML VIAL IVP PRN (17:25)
--- NOTE | 2017-02-16 17:32 | Internal Med History&Physical ---
<Cherrie [place] - Last Filed: 02/16/17 17:57> Date of Encounter: 02/16/17 Time of Encounter: 17:30 Assessment and Plan (1) Seizure Current visit: Yes Status: Acute Patient has a long-standing history of seizures states he has had an approximate 5 seizures this week. He states he has been compliant with his medications he is on multiple antiepileptics, there has not been any recent changes he denies any recent alcohol or drug use. He does have elevated white count this may be from the seizure activity however we will check a UA, also tox screen. Continue with seizure/fall/aspiration precautions 2 we will continue with antiepileptics we will check Dilantin level 3 consult neurology-ER spoke with Dr. Gloria-suggest 1 mg Ativan now and 0.5 mg twice a day 4 Ativan IV as needed for breakthrough seizures (2) CAD (coronary artery disease) Current visit: No Status: Chronic 1 patient has a history of coronary artery disease with stent placement 2 most recent was July of this year. We will continue with dual antiplatelet therapy as well as beta reuben and statin, nitrates Qualifiers: Coronary Disease-Associated Artery/Lesion type: [place] artery [place] vs. transplanted heart: [place] heart Associated angina: without angina Qualified Code(s): I25.10 - Atherosclerotic heart disease of [place] coronary artery without angina pectoris (3) Diabetes mellitus Current visit: No Status: Acute 1 Accu-Cheks before meals at bedtime with sliding scale insulin 2 diabetic diet Qualifiers: Diabetes mellitus type: type 2 Diabetes mellitus complication status: with unspecified complications Diabetes mellitus correction insulin use: without correction use Qualified Code(s): E11.8 - Type 2 diabetes mellitus with unspecified complications (4) COPD (chronic obstructive pulmonary disease) Current visit: No Status: Chronic 1 patient continues to smoke encourage patient stop smoking will continue with bronchodilators Qualifiers: COPD type: unspecified COPD Qualified Code(s): J44.9 - Chronic obstructive pulmonary disease, unspecified (5) DVT prophylaxis Current visit: No Status: Acute [address] [facility] - H&P: HPI Chief complaint: Seizures Admitted From: Emergency Dept Plans for Post Hospital Care: Home History of present illness: Mr. Najera is a 61 year old male past medical history of coronary artery disease with stents 2 last stent July 2016 diabetes GERD hyperlipidemia hypertension seizures. Patient states that he has had a long history of seizures on multiple AE, over the past week he has had approximately 5 seizures. He has been compliant with his medications and there has not been any recent changes. He denies any alcohol or drug use. He had previously been seen in the ER and was discharged home, he had another seizure in the parking lot. He denies any loss of bowel or bladder control during his seizures. On arrival to the ER patient was postictal however, he recovered quickly. Lab work was obtained he does have elevated white count 16.[address] of his head was negative. ER physician did speak with Dr. Jama neurology requested urinalysis as well as advised for Ativan 1 mg now and then 0.5 mg twice a day. Patient has been admitted for further workup and evaluation. Presently the patient is alert oriented appropriate no seizure activity noted. Cranial nerves II through XII are intact equal grasp bilaterally, he does have neuropathy in his lower extremities as well as weakness in his right leg which she states is chronic. Lungs sounds are clear heart sounds are regular S1 and S2 with no rubs clicks gallops murmurs noted abdomen soft nontender no pedal edema. Denies any fevers chills nausea vomiting abdominal pain chest pain shortness of breath or diarrhea. He does normally use a cane to ambulate. He does live alone his in September and since that time he states that he has lost a lot of weight due to poor appetite and not able to cook for himself. He is hemodynamically stable at this time I did review this case with Dr. Duffy who agrees with plan. Past Med Surg Social Fam HX - Past Medical History Medical history: arthritis, coronary artery disease, diabetes, GERD, hyperlipidemia, hypertension, myocardial infarction, seizures, other Psychiatric history: anxiety, depression, panic disorder, other - Past Surgical History Surgical History: angioplasty/stent (2 stents (last July 12, 2016), appendectomy, cholecystectomy, herniorrhaphy, knee replacement - Social History Smoking Status: Current every day smoker Smokeless Tobacco Status: No Alcohol use: none Drug use: none - Family History Sister Adopted: No Living Status: Hx Family Cardiac Disorders: Yes (SISTER WITH PACEMAKER & VALVE) Hx Family Respiratory Disorders: Yes (SISTER WITH COPD) Hx Family Cancer: Yes (SISTER OF BRAIN CANCER) Hx Family GI Disorders: (UNKNOWN) Hx Family Endocrine Disorder: Yes (SISTER WITH DM) Internal Medicine - H&P: Meds Albuterol Sulfate [Proair Hfa] 2 puff IH QID PRN 04/19/16 [History] Aspirin 81 mg PO DAILY 04/19/16 [History] Clopidogrel [Plavix] 75 mg PO DAILY 04/19/16 [History] Linagliptin [Tradjenta] 5 mg PO DAILY 04/19/16 [History] Loratadine [Claritin] 10 mg PO DAILY 04/19/16 [History] Metformin HCl [Glucophage] 1,000 mg PO BID 04/19/16 [History] OXcarbazepine [Trileptal] 300 mg PO BID 04/19/16 [History] [place]-3S/Dha/Epa/Fish Oil [Fish Oil 1,200 mg Softgel] 1 cap PO DAILY 04/19/16 [ History] Oxycodone HCl 20 mg PO TID PRN 04/19/16 [History] Pantoprazole Sodium [Protonix] 40 mg PO DAILY 04/19/16 [History] Phenytoin ER [Dilantin ER] 100 mg PO QAM 04/19/16 [History] Trazodone HCl 100 mg PO HS 04/19/16 [History] clonazePAM [Klonopin] 2 mg PO TID PRN 04/19/16 [History] hydrOXYzine HCl [Hydroxyzine HCl] 25 mg PO TID PRN 04/19/16 [History] LevETIRAcetam [Keppra] 1,000 mg PO Q12HR 30 Days 04/23/16 [Rx] Omeprazole [PriLOSEC] 40 mg PO DAILY 07/11/16 [History] Atorvastatin [Lipitor] 20 mg PO HS #30 tablet 07/14/16 [Rx] Lisinopril [Zestril] 2.5 mg PO DAILY #30 tablet 07/14/16 [Rx] Metoprolol [Lopressor] 25 mg PO BID #60 tablet 07/14/16 [Rx] Isosorbide MONOnitrate (24 HR) [Imdur] 60 mg PO DAILY 02/16/17 [History] Phenytoin ER [Dilantin ER] 400 mg PO HS 02/16/17 [History] 3 Allergy/AdvReac Type Severity Reaction Status Date / Time levofloxacin [From Levaquin] Allergy Hives Verified 07/11/16 14:47 naproxen Allergy Hives Verified 07/11/16 14:47 All Systems PM: A 10-system review of systems was performed and is negative for pertinent findings except as documented above in the HPI. - Constitutional Constitutional: weight loss, no chills, no fever(s), no night sweats - EENT Eyes: no change in vision, no discharge, no pain, no photophobia Ears: no ear discharge, no ear pain, no tinnitus Nose, mouth and throat: no dysphagia, no nasal discharge, no neck pain, no sore throat - Cardiovascular Cardiovascular ROS IM: no chest pain, no diaphoresis, no dyspnea, no lightheadedness, no palpitations, no syncope - Respiratory Respiratory: no cough, no dyspnea, no wheezing, no excessive phlegm production - Gastrointestinal Gastrointestinal: no abdominal pain, no diarrhea, no hematemesis, no hematochezia, no melena, no nausea, no vomiting - Musculoskeletal Musculoskeletal ROS IM: no numbness, no tingling - Integumentary Integumentary IM: no rash, no unusual bruising - Neurological Neurological ROS: convulsions, frequent falls, no confusion, no focal weakness, no numbness, no tingling, no tremor(s) - Hematologic/Lymphatic Hematologic/Lymphatic: no easy bruising - Constitutional Vitals: Temp Pulse Resp BP Pulse Ox 98.5 F 53 16 125/75 94 02/16/17 17:22 02/16/17 17:22 02/16/17 17:22 02/16/17 17:22 02/16/17 17:22 General appearance: Present: A&O X 3, answers questions appropriately - Head Head exam: Present: atraumatic, normocephalic - Eye Eye exam: Present: PERRL, conjuntiva pink, sclera anicteric Pupils: Present: PERRL - Neck Neck exam general surgery: Present: supple, trachea midline. Absent: lymphadenopathy - Respiratory Respiratory exam: Present: CTAB. Absent: accessory muscle use, rales, rhonchi, wheezes - Cardiovascular Cardiovascular exam: Present: RRR, +S1, +S2. Absent: diastolic murmur, gallop, rubs, systolic murmur - GI/Abdominal GI/Abdominal exam: Present: normal bowel sounds, soft, no peritoneal signs. Absent: distended, tenderness - Extremities Exam Extremities exam: Present: warm, radial pulses palpable and symmetrical. Absent : calf tenderness, cyanotic, pedal edema - Neurological Exam Neurological exam: Present: CN II-XII intact, oriented X3, no focal deficits. Absent: pronater drift, facial droop, speech deficit - Skin Skin exam: Present: dry, intact Internal Med - H&P Results - Labs CBC & Chem 7: 02/16/17 13:36 02/16/17 13:36 Labs: Urine 02/16/17 Range/Units 16:22 Urine Color Yellow (Yellow) Urine Clarity Clear (Clear) Urine pH 6.0 (5.0-8.0) pH Units Ur Specific [place] 1.018 (1.010-1.025) Urine Protein 30 H (Neg-Trace) mg/dL Urine Glucose (UA) Normal (Normal) mg/dL - EKG Data EKG shows normal: sinus rhythm - EKG Data Prior EKG available for review: yes When compared to previous EKG: there is no significant change EKG comments: 02/16/17 17:49 Right bundle branch block - Diagnostic Studies Other Images Additional comments: Head CT 02/16/17 13:34 IMPRESSION: No acute intracranial abnormality. D/ / Saran Etienne MD / Saran Etienne MD Interpreting Provider: Saran Etienne MD <Sharath Duffy - Last Filed: 02/16/17 18:38> Date of Encounter: 02/16/17 Internal Medicine - H&P: HPI History of present illness: Mr. Najera is a 61 year old male All Systems PM: A 10-system review of systems was performed and is negative for pertinent findings except as documented above in the HPI. - Constitutional Vitals: Temp Pulse Resp BP Pulse Ox 98.5 F 53 16 125/75 94 02/16/17 17:22 02/16/17 17:22 02/16/17 17:22 02/16/17 17:22 02/16/17 17:22 Internal Med - H&P Results - Labs CBC & Chem 7: 02/16/17 13:36 02/16/17 13:36 Labs: Urine 02/16/17 Range/Units 16:22 Urine Color Yellow (Yellow) Urine Clarity Clear (Clear) Urine pH 6.0 (5.0-8.0) pH Units Ur Specific [place] 1.018 (1.010-1.025) Urine Protein 30 H (Neg-Trace) mg/dL Urine Glucose (UA) Normal (Normal) mg/dL - Attending Attestation I personally interviewed and examined this pt. I agree with the findings, assessment and plan of ARIADNE [place]. Neirology input apprec and will await further reccs. Pt admits to missing occ doses of his AED's. Dilantin level at lower level of normal and may need increased dosage. No evidence of acute infection. Denies ETOH use. Pt currently in NAD, comfortable.
[2017-02-16] MEDS ORDERED: levETIRAcetam 250 MG TABLET PO SCH (18:00)
[2017-02-16 18:35] LABS: Amphetamine Screen,Urine Negative ng/mL (Cutoff=1000); Barbiturate Screen,Urine Negative ng/mL (Cutoff=200); Benzodiazepines Screen,Urine Negative ng/mL (Cutoff=200); Cannabinoid Screen,Urine Negative ng/mL (Cutoff = 50); Cocaine Screen,Urine Negative ng/mL (Cutoff= 300); Opiate Screen,Urine Negative ng/mL (Cutoff=300); Phencyclidine Screen,Urine Negative ng/mL (Cutoff=25)
[2017-02-16] MEDS: Insulin LISPRO 300 UNITS/3 ML VIAL SQ SCH (18:39)
[2017-02-16] MEDS: Nicotine 21 MG PATCH.TD24 TD SCH (20:41)
[2017-02-16] MEDS: *HR* LORazepam 0.5 MG TABLET PO SCH (20:42)
[2017-02-16] MEDS: OXcarbazepine 150 MG TABLET PO SCH (20:42)
[2017-02-16] MEDS ORDERED: traZODone 50 MG TABLET PO SCH (21:00)
[2017-02-17] MEDS: Insulin LISPRO 300 UNITS/3 ML VIAL SQ SCH ×5 (04:07→22:00)
[2017-02-17 04:32] LABS: Basophils # 0.1 K/mcL (0.0-0.2); Basophils % 0.3 %; Eosinophils # 0.1 K/mcL (0.0-0.6); Eosinophils % 0.3 %; Hematocrit 42.8 % (37.5-50.1); Hemoglobin 14.6 g/dL (12.9-16.9); Immature Granulocytes % 0.8 % (0-4); Lymphocytes # 1.7 K/mcL (0.6-4.6); Lymphocytes % 9.4 %; Mean Corpuscular HGB Conc 34.1 g/dL (31.6-35.5); Mean Corpuscular Hemoglobin 29.9 pg (28.0-33.3); Mean Corpuscular Volume 87.5 fL (83.0-100.0); Mean Platelet Volume 12.1 fL (9.4-12.4); Monocytes # 1.2 K/mcL (0.0-1.3); Monocytes % 6.7 %; Neutrophils # 14.7 K/mcL (1.6-8.9); Platelet Count 145 K/mcL (140-400); Red Blood Count 4.89 M/mcL (4.19-5.50); Segmented Neutrophils % 82.5 %
[2017-02-17 04:50] LABS: BUN/Creatinine Ratio 11 (6-26); Blood Urea Nitrogen 8 mg/dL (8-26); Calcium 8.9 mg/dL (8.6-10.8); Carbon Dioxide 20 mEq/L (19-29); Chloride 103 mEq/L (98-109); Glucose 107 mg/dL (70-99); Osmolality,Calculated 275 (280-300); Sodium 133 mEq/L (136-145); eGFR For African Americans > 60 (> 60); eGFR For Non-African Americans > 60 (> 60)
[2017-02-17 05:00] LABS: Potassium 3.6 mEq/L (3.5-4.5)
[2017-02-17] MEDS ORDERED: NON-FORMULARY MEDICATION 1 EACH EACH (Pantoprazole Sodium [Protonix] 40 MG) PO SCH (09:00)
[2017-02-17] MEDS: *HR* LORazepam 0.5 MG TABLET PO SCH (09:13)
[2017-02-17] MEDS: Aspirin 81 MG TAB.CHEW PO SCH (09:13)
[2017-02-17] MEDS: Loratadine 10 MG TABLET PO SCH (09:13)
[2017-02-17] MEDS: levETIRAcetam 250 MG TABLET PO SCH ×2 (09:14→17:22)
[2017-02-17] MEDS: Nicotine 21 MG PATCH.TD24 TD SCH (09:14)
[2017-02-17] MEDS: Isosorbide MONOnitrate (24 HR) 60 MG TAB.ER.24H PO SCH (09:14)
[2017-02-17] MEDS: OXcarbazepine 150 MG TABLET PO SCH ×2 (09:15→21:39)
--- NOTE | 2017-02-17 10:15 | Neurology - Consult Note ---
Date of Encounter: 02/17/17 Time of Encounter: 08:20 Assessment and Plan (1) Seizure disorder Current Visit: No Status: Chronic Patient who has an history of epilepsy and has multiple breakthrough seizures despite being taking his medication. He has been maintained on Trileptal as well as Dilantin denies been taking Keppra. At this time I do not think that he would require 3 different antiepileptic medication perhaps Dilantin could be slowly tapered off and he can continue on Trileptal as well as on Keppra no Focal abnormalities on his neurological examination suggest to check for any underlying infectious and metabolic abnormalities that may be precipitating his seizures the patient remained stable he could be discharged later during the day with follow-up with his local neurologist History of Present Illness HPI: Mr. Najera is a 61 year old male WITH past medical history of coronary artery disease, diabetes GERD hyperlipidemia hypertension and seizures. Patient states that he has had a long history of seizures on multiple AEDs, followed up [facility] neurology in [place], [place] over the past week he has had approximately 5 seizures. He has been compliant with his medications and there has not been any recent changes. He denies any alcohol or drug use. pt was seen in ER and was discharged home, he had another seizure in the parking lot. He denies any loss of bowel or bladder control during his seizures. On arrival to the ER patient was postictal however, he recovered quickly. Lab work was obtained he does have elevated white count 16.[address] of his head was negative. patient has been admitted for further workup and evaluation. Presently the patient is alert oriented appropriate no seizure activity noted. Past Med Surg Social Fam HX - Past Medical History Medical history: arthritis, coronary artery disease, diabetes, GERD, hyperlipidemia, hypertension, myocardial infarction, seizures, other Psychiatric history: anxiety, depression, panic disorder, other - Past Surgical History Surgical History: angioplasty/stent, appendectomy, cholecystectomy, herniorrhaphy, knee replacement - Social History Smoking Status: Current every day smoker Smokeless Tobacco Status: No Alcohol use: none Drug use: none - Family History Sister Adopted: No Living Status: Hx Family Cardiac Disorders: Yes (SISTER WITH PACEMAKER & VALVE) Hx Family Respiratory Disorders: Yes (SISTER WITH COPD) Hx Family Cancer: Yes (SISTER OF BRAIN CANCER) Hx Family GI Disorders: (UNKNOWN) Hx Family Endocrine Disorder: Yes (SISTER WITH DM) Medications and Allergies Albuterol Sulfate [Proair Hfa] 2 puff IH QID PRN 04/19/16 [History] Aspirin 81 mg PO DAILY 04/19/16 [History] Clopidogrel [Plavix] 75 mg PO DAILY 04/19/16 [History] Linagliptin [Tradjenta] 5 mg PO DAILY 04/19/16 [History] Loratadine [Claritin] 10 mg PO DAILY 04/19/16 [History] Metformin HCl [Glucophage] 1,000 mg PO BID 04/19/16 [History] OXcarbazepine [Trileptal] 300 mg PO BID 04/19/16 [History] Nelson-3S/Dha/Epa/Fish Oil [Fish Oil 1,200 mg Softgel] 1 cap PO DAILY 04/19/16 [ History] Oxycodone HCl 20 mg PO TID PRN 04/19/16 [History] Pantoprazole Sodium [Protonix] 40 mg PO DAILY 04/19/16 [History] Phenytoin ER [Dilantin ER] 100 mg PO QAM 04/19/16 [History] Trazodone HCl 100 mg PO HS 04/19/16 [History] clonazePAM [Klonopin] 2 mg PO TID PRN 04/19/16 [History] hydrOXYzine HCl [Hydroxyzine HCl] 25 mg PO TID PRN 04/19/16 [History] LevETIRAcetam [Keppra] 1,000 mg PO Q12HR 30 Days 04/23/16 [Rx] Omeprazole [PriLOSEC] 40 mg PO DAILY 07/11/16 [History] Atorvastatin [Lipitor] 20 mg PO HS #30 tablet 07/14/16 [Rx] Lisinopril [Zestril] 2.5 mg PO DAILY #30 tablet 07/14/16 [Rx] Metoprolol [Lopressor] 25 mg PO BID #60 tablet 07/14/16 [Rx] Isosorbide MONOnitrate (24 HR) [Imdur] 60 mg PO DAILY 02/16/17 [History] Phenytoin ER [Dilantin ER] 400 mg PO HS 02/16/17 [History] 3 Allergy/AdvReac Type Severity Reaction Status Date / Time levofloxacin [From Levaquin] Allergy Hives Verified 07/11/16 14:47 naproxen Allergy Hives Verified 07/11/16 14:47 All Systems: A 10-system review of systems was performed and is negative for pertinent findings except as documented above in the HPI. Physical Examination - Vital Signs Vital Signs: Initial Vital Signs Temp Pulse Resp BP Pulse Ox 98.7 F 88 16 172/98 97 02/16/17 13:31 02/16/17 13:31 02/16/17 13:31 02/16/17 13:31 02/16/17 13:31 - Neurologic Detailed motor examination: full strength in all major muscle groups Motor examination - right side: 10/04: deltoids, biceps, triceps, wrist flexion, wrist extension, correctional case manager, hip flexors, tibialis Anterior, quadriceps, toe extension (EHL), plantarflexion Motor examination - left side: 10/04: deltoids, biceps, triceps, wrist flexion, wrist extension, hip flexors, correctional case manager, quadriceps, tibialis Anterior, toe extension (EHL), plantarflexion Mental Status Examination: awake, alert, oriented to person, oriented to place, oriented to time, follows commands appropriately, answers questions appropriately, no agnosia, no aphasia, no aproxia Cranial nerve examination: PERRL, EOMI, visual velazquez intact, corneal reflexes brisk symmetrically, sensory to face intact, mastication intact, no facial asymmetry is present, no dysarthria, hearing is intact symmetrically, soft palate elevates bilaterally upon phonation, gag reflex intact, flexes SCM and trapezius muscles symmetrically with full power, tongue protrudes midline, no atrophy or facial fasiculations present Cerebellar examination: no dysmetria, performs finger to nose and heel to ferrari symmetrically without ataxia, no gait ataxia, no truncal ataxia, no difficulty with rapid alternating movements Results - Laboratory Findings CBC and BMP: 02/17/17 03:59 02/17/17 03:59 Abnormal lab findings: Abnormal lab results WBC 17.8 K/mcL (4.3-11.1) H 02/17/17 03:59 Neutrophils # 14.7 K/mcL (1.6-8.9) H 02/17/17 03:59 Immature Plt Fraction 9.0 % (1.1-6.1) H 02/16/17 13:36 Sodium 133 mEq/L (136-145) L 02/17/17 03:59 Glucose 107 mg/dL (70-99) H 02/17/17 03:59 POC Glucose 110 (58-89) H 02/16/17 21:11 Calculated Osmolality 275 (280-300) L 02/17/17 03:59 Urine Protein 30 mg/dL (Neg-Trace) H 02/16/17 16:22 Urine Microscopic WBC 5-15 per hpf (0-3) H 02/16/17 16:22 Ur Squamous Epith Cells Many per lpf (None-Few) H 02/16/17 16:22 Ur Culture Indicated? YES (NO) A 02/16/17 16:22 Consult Discharge Plan - Plan Referrals: NONE,PCP [Primary Care Provider] -
--- NOTE | 2017-02-17 18:07 | Internal Med Progress Note ---
Date of Encounter: 02/17/17 Time of Encounter: 09:05 - Assessment and plan (1) Seizure Current Visit: Yes Status: Acute Assessment and plan: Patient with seizures since TBI in 2003. Patient reports an increase in frequency and states he is about 5 seizures this week. He denies missing any of his medications, he denies recent illness, fever, cough, congestion, urinary symptoms, abdominal pain. He denies any recent alcohol or drug use. Patient does have leukocytosis today, most likely from seizures. Urine was negative, although a culture was indicated. Chest x-ray today was negative. Patient was seen by neurology who feels that he probably does not need to be on 3 different antiepileptic medications in the perhaps the Dilantin could be slowly tapered off them a call and he will probably continue on the Trileptal and Keppra. Patient will need to follow-up with his own neurologist. He has had no seizure activity since he has been here. We will continue to monitor overnight for signs of infection, if white count decreases in the morning he will most likely be discharged. Continue seizure precautions Continue commercial manager labs and vital signs. (2) Diabetes mellitus Current Visit: Yes Status: Acute Assessment and plan: Chronic. Continue sliding scale insulin, Accu-Cheks, diabetic diet. A1c ordered for morning. Qualifiers: Diabetes mellitus type: type 2 Diabetes mellitus complication status: with unspecified complications Diabetes mellitus termite exterminator helper insulin use: without termite exterminator helper use Qualified Code(s): E11.8 - Type 2 diabetes mellitus with unspecified complications (3) Leukocytosis Current Visit: Yes Status: Acute Assessment and plan: Most likely due to seizure activity. Patient has been afebrile, no tachycardia. He denies urinary symptoms, cough, congestion. Chest x-ray is negative. Urine is negative although a culture has been indicated. Monitor overnight, if white count decreases, patient most likely can discharge. Qualifiers: Leukocytosis type: unspecified Qualified Code(s): D72.829 - Elevated white blood cell count, unspecified (4) CAD (coronary artery disease) Current Visit: Yes Status: Chronic Assessment and plan: Patient denies chest pain. Has prior history of CAD with stent placement, most recently in July,. Continue DAPT therapy, beta reuben, statin, nitrates. Continue telemetry. Qualifiers: Coronary Disease-Associated Artery/Lesion type: [place] artery [place] vs. transplanted heart: [place] heart Associated angina: without angina Qualified Code(s): I25.10 - Atherosclerotic heart disease of [place] coronary artery without angina pectoris (5) COPD (chronic obstructive pulmonary disease) Current Visit: Yes Status: Chronic Assessment and plan: No acute exacerbation. Lungs are clear and diminished. No wheezing, rhonchi, Rales, respiratory distress. He is not requiring oxygen. Continue home medications. Qualifiers: COPD type: unspecified COPD Qualified Code(s): J44.9 - Chronic obstructive pulmonary disease, unspecified (6) DVT prophylaxis Current Visit: No Status: Acute Assessment and plan: Patient is ambulatory in the room, SCDs ordered. - Time Spent With Patient less than 15 minutes - Subjective Interval history: Patient was seen and examined this morning at 090 5 AM. He is alert and oriented, although he is a poor historian. Pt with seizures of increasing frequency over the last few days. Pt denies missing doses of his medications and denies recent illness. WBC is elevated, most likely due to seizure activity , no obvious signs of infection noted. Pt states that he has had seizures since TBI in 2003 when he fell from a ladder. He sees a neurologist ,female, in [place] every 3 months and is unsure of her name or hospital affiliation. He states that he has only had one seizure free period of about 6-7 mos since TBI. - Constitutional Vitals: Temp Pulse Resp BP Pulse Ox 98.8 F 61 16 95/55 97 02/17/17 14:58 02/17/17 14:58 02/17/17 14:58 02/17/17 14:58 02/17/17 14:58 General appearance: Present: A&O X 3, pleasant, no acute distress, answers questions appropriately - Head Head exam: Present: atraumatic, normal inspection, normocephalic - Eye Eye exam: Present: EOMI, normal appearance, PERRL, conjuntiva pink, sclera anicteric. Absent: nystagmus - Neck Neck exam general surgery: Present: supple, trachea midline. Absent: lymphadenopathy, tenderness - Respiratory Respiratory exam: Present: CTAB. Absent: accessory muscle use, rales, rhonchi, wheezes - Cardiovascular Cardiovascular exam: Present: RRR, +S1, +S2. Absent: diastolic murmur, gallop, rubs, systolic murmur - GI/Abdominal GI/Abdominal exam: Present: normal bowel sounds, soft, no peritoneal signs. Absent: distended, tenderness - Extremities Exam Extremities exam: Present: normal inspection, warm, radial pulses palpable and symmetrical. Absent: calf tenderness, cyanotic, pedal edema - Neurological Exam Neurological exam: Present: alert, oriented X3, no focal deficits. Absent: altered, facial droop, speech deficit - Skin Skin exam: Present: dry, intact, normal color, warm. Absent: rash Internal Medicine: Result - Labs CBC & Chem 7: 02/17/17 03:59 02/17/17 03:59 Labs: Short CBC 02/17/17 Range/Units 03:59 WBC 17.8 H (4.3-11.1) K/mcL Hgb 14.6 (12.9-16.9) g/dL Hct 42.8 (37.5-50.1) % Plt Count 145 (140-400) K/mcL Neutrophils # 14.7 H (1.6-8.9) K/mcL BMP 02/17/17 03:59 Sodium 133 L Potassium 3.6 Chloride 103 Carbon Dioxide 20 BUN 8 Creatinine 0.76 Glucose 107 H Calcium 8.9 - Impressions Impressions Chest X-Ray 02/17/17 10:30 IMPRESSION: No acute cardiopulmonary disease. D/ / Selvin Zuniga MD / Selvin Zuniga MD Interpreting Provider: Selvin Zuniga MD - VTE Documentation of Mechanical Device: Intermittent pneumatic compression device Consult Discharge Plan - Plan Referrals: NONE,PCP [Primary Care Provider] -
[2017-02-18] MEDS: levETIRAcetam 250 MG TABLET PO SCH (05:06)
[2017-02-18] MEDS ORDERED: *HR* Heparin 5,000 UNIT/ML VIAL SQ SCH (06:00)
[2017-02-18 07:05] LABS: Basophils # 0.1 K/mcL (0.0-0.2); Basophils % 0.6 %; Eosinophils # 0.1 K/mcL (0.0-0.6); Eosinophils % 1.1 %; Hemoglobin 14.3 g/dL (12.9-16.9); Lymphocytes # 2.6 K/mcL (0.6-4.6); Lymphocytes % 24.5 %; Mean Corpuscular HGB Conc 33.3 g/dL (31.6-35.5); Mean Corpuscular Hemoglobin 29.6 pg (28.0-33.3); Mean Platelet Volume 12.1 fL (9.4-12.4); Monocytes # 0.9 K/mcL (0.0-1.3); Monocytes % 8.8 %; Neutrophils # 6.8 K/mcL (1.6-8.9); Platelet Count 144 K/mcL (140-400); Red Blood Count 4.83 M/mcL (4.19-5.50); Red Cell Distribution Width 13.2 % (11.5-14.5)
[2017-02-18 07:09] LABS: Hemoglobin A1C 5.1 %
[2017-02-18 07:11] LABS: BUN/Creatinine Ratio 17 (6-26); Blood Urea Nitrogen 13 mg/dL (8-26); Calcium 8.9 mg/dL (8.6-10.8); Carbon Dioxide 23 mEq/L (19-29); Chloride 105 mEq/L (98-109); Glucose 90 mg/dL (70-99); Osmolality,Calculated 288 (280-300); Potassium 3.4 mEq/L (3.5-4.5); Sodium 139 mEq/L (136-145); eGFR For African Americans > 60 (> 60); eGFR For Non-African Americans > 60 (> 60)
[2017-02-18] MEDS: Insulin LISPRO 300 UNITS/3 ML VIAL SQ SCH ×2 (10:32→12:26)
--- NOTE | 2017-02-18 10:37 | Neurology Progress Note ---
Date of Encounter: 02/18/17 Time of Encounter: 07:45 Assessment and Plan (1) Seizure disorder Current Visit: No Status: Chronic suggest to continue on Trileptal at the same time continue on Keppra, no need for 3 AEDS, from neuro stand point stable, OK to discharge, f/u with his Neurologist call if needed thanks; Subjective Interval history: Patient remained stable no further seizures reported. White count was elevated awaiting urine cultures overall he is a stable Objective - Constitutional Vitals: Temp Pulse Resp BP Pulse Ox 98.4 F 54 17 110/63 92 02/18/17 07:39 02/18/17 07:39 02/18/17 07:39 02/18/17 07:39 02/18/17 07:39 - Neurological Exam Motor Examination: Present: full strength in all major muscle groups Motor examination - left side: 5/5: deltoids, biceps, triceps, wrist flexion, wrist extension, hip flexors, vest finisher, quadriceps, tibialis Anterior, toe extension (EHL), plantarflexion Mental Status Examination: Present: awake, alert, oriented to person, oriented to place, oriented to time, follows commands appropriately, answers questions appropriately, no agnosia, no aphasia, no aproxia Cranial nerve examination: Present: PERRL, EOMI, visual velazquez intact, corneal reflexes brisk symmetrically, sensory to face intact, mastication intact, no facial asymmetry is present, no dysarthria, hearing is intact symmetrically, soft palate elevates bilaterally upon phonation, gag reflex intact, flexes SCM and trapezius muscles symmetrically with full power, tongue protrudes midline, no atrophy or facial fasiculations present Cerebellar examination: Present: no dysmetria, performs finger to nose and heel to ferrari symmetrically without ataxia, no gait ataxia, no truncal ataxia, no difficulty with rapid alternating movements - VTE Documentation of Mechanical Device: Intermittent pneumatic compression device Results - Laboratory Findings CBC and BMP: 02/18/17 06:08 02/18/17 06:08 Abnormal lab findings: Abnormal lab results Immature Plt Fraction 9.0 % (1.1-6.1) H 02/16/17 13:36 Potassium 3.4 mEq/L (3.5-4.5) L 02/18/17 06:08 POC Glucose 114 (58-89) H 02/17/17 21:08 Urine Protein 30 mg/dL (Neg-Trace) H 02/16/17 16:22 Urine Microscopic WBC 5-15 per hpf (0-3) H 02/16/17 16:22 Ur Squamous Epith Cells Many per lpf (None-Few) H 02/16/17 16:22 Ur Culture Indicated? YES (NO) A 02/16/17 16:22 Consult Discharge Plan - Plan Referrals: NONE,PCP [Primary Care Provider] -
[2017-02-18] MEDS: Loratadine 10 MG TABLET PO SCH (10:39)
[2017-02-18] MEDS: Isosorbide MONOnitrate (24 HR) 60 MG TAB.ER.24H PO SCH (10:39)
[2017-02-18] MEDS: Aspirin 81 MG TAB.CHEW PO SCH (10:39)
[2017-02-18] MEDS: OXcarbazepine 150 MG TABLET PO SCH (10:40)
[2017-02-18] MEDS: Nicotine 21 MG PATCH.TD24 TD SCH (10:40)
[2017-02-18 11:53] VITALS: BP 130/74
--- NOTE | 2017-02-18 13:02 | Discharge Summary ---
Date of Encounter: 02/18/17 Time of Encounter: 12:59 - Discharge Diagnosis (1) Breakthrough seizure Priority: Primary Status: Acute (2) Tobacco abuse Priority: Secondary Status: Chronic (3) COPD (chronic obstructive pulmonary disease) Priority: Secondary Status: Chronic Qualifiers: COPD type: unspecified COPD Qualified Code(s): J44.9 - Chronic obstructive pulmonary disease, unspecified (4) Diabetes mellitus Priority: Secondary Status: Chronic Qualifiers: Diabetes mellitus type: type 2 Diabetes mellitus complication status: with unspecified complications Diabetes mellitus intermediate insulin use: without buttermaker continuous churn use Qualified Code(s): E11.8 - Type 2 diabetes mellitus with unspecified complications (5) CAD (coronary artery disease) Priority: Secondary Status: Chronic Qualifiers: Coronary Disease-Associated Artery/Lesion type: [place] artery [place] vs. transplanted heart: [place] heart Associated angina: without angina Qualified Code(s): I25.10 - Atherosclerotic heart disease of [place] coronary artery without angina pectoris - Discharge Medications Prescriptions: levETIRAcetam [Keppra] 1,000 mg PO Q12HR 30 Days tab Home Medications: Albuterol Sulfate [Proair Hfa] 2 puff IH QID PRN 04/19/16 [History] Aspirin 81 mg PO DAILY 04/19/16 [History] Clopidogrel [Plavix] 75 mg PO DAILY 04/19/16 [History] Linagliptin [Tradjenta] 5 mg PO DAILY 04/19/16 [History] Loratadine [Claritin] 10 mg PO DAILY 04/19/16 [History] Metformin HCl [Glucophage] 1,000 mg PO BID 04/19/16 [History] OXcarbazepine [Trileptal] 300 mg PO BID 04/19/16 [History] [employer] [place]-3S/Dha/Epa/Fish Oil [Fish Oil 1,200 mg Softgel] 1 cap PO DAILY 04/19/16 [ History] Oxycodone HCl 20 mg PO TID PRN 04/19/16 [History] Phenytoin ER [Dilantin ER] 100 mg PO QAM 04/19/16 [History] Trazodone HCl 100 mg PO HS 04/19/16 [History] clonazePAM [Klonopin] 2 mg PO TID PRN 04/19/16 [History] hydrOXYzine HCl [Hydroxyzine HCl] 25 mg PO TID PRN 04/19/16 [History] LevETIRAcetam [Keppra] 1,000 mg PO Q12HR 30 Days tablet 04/23/16 [Rx] Omeprazole [PriLOSEC] 40 mg PO DAILY 07/11/16 [History] Atorvastatin [Lipitor] 20 mg PO HS #30 tablet 07/14/16 [Rx] Lisinopril [Zestril] 2.5 mg PO DAILY #30 tablet 07/14/16 [Rx] Metoprolol [Lopressor] 25 mg PO BID #60 tablet 07/14/16 [Rx] Isosorbide MONOnitrate (24 HR) [Imdur] 60 mg PO DAILY 02/16/17 [History] Phenytoin ER [Dilantin ER] 400 mg PO HS 02/16/17 [History] levETIRAcetam [Keppra] 1,000 mg PO Q12HR 30 Days tab 02/18/17 [Rx] Allergies/Adverse Reactions: 3 Allergy/AdvReac Type Severity Reaction Status Date / Time levofloxacin [From Levaquin] Allergy Hives Verified 07/11/16 14:47 naproxen Allergy Hives Verified 07/11/16 14:47 - Notes to Outpatient Provider Per Neurology recommendation- patient to f/up with Outpatient Neurology for tapering off Dilantin; he is on Keppra and Trileptal now in addition to Dilantin ; Date of admission: 02/17/17 18:41 Primary care physician: PCP NONE Discharging clinician: Taina Gill Anticipated date of discharge: 02/18/17 - Patient Status Disposition: Home, Self-Care Condition: Fair Functional capacity at discharge: independent ambulation Overall status at discharge: patient is progressing back to baseline - Discharge Instructions Instructions: Levetiracetam (By mouth), Diabetes Mellitus Type 2 in Adults (DC) , Chronic Obstructive Pulmonary Disease (DC) Follow Up With: NONE,PCP [Primary Care Provider] - Forms: ED Satisfaction Letter Additional Instructions: F/up with Neurology at [place], [place] in 2-3 weeks Dilantin needs to be tapered off as an outpatient by Neurology - Diet and Activity Activity: increase activity as tolerated, other Diet: diabetic diet, low fat, low cholesterol, low salt diet Hospital course: Mr. Najera is a 61 year old male with the above medical problems who was admitted with breakthrough seizures. Patient has long-standing history of seizure disorder and states that he does not remained seizure-free for very long. He was noted to be on Trileptal and Dilantin at home and he has been started on Keppra while in the hospital. No source of infection was identified. CT head showed no acute abnormality. Neurology was consulted- recommend to taper off Dilantin as an outpatient and to continue Keppra. Patient is currently medically stable for discharge with outpatient neurology follow-up. - Time Spent with Patient Total time spent providing and/or coordinating discharge services: Greater than 30 minutes (40 min) - Constitutional Vitals: Temp Pulse Resp BP Pulse Ox 98.8 F 51 17 130/74 97 02/18/17 11:52 02/18/17 11:52 02/18/17 11:52 02/18/17 11:52 02/18/17 11:52 General appearance: Present: A&O X 3, answers questions appropriately - Respiratory Respiratory exam: Present: CTAB. Absent: accessory muscle use, rales, rhonchi, wheezes - Cardiovascular Cardiovascular exam: Present: RRR, +S1, +S2. Absent: diastolic murmur, gallop, rubs, systolic murmur - VTE Documentation of Mechanical Device: Intermittent pneumatic compression device
[2017-02-18] MEDS ORDERED: FLUARIX QUAD 2017-18 36MOS UP/PF 0.5 ML SYRINGE IM ONE (14:23)
--- NOTE | 2017-02-19 14:06 | Electrocardiograph Report ---
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
== END 2017-02-18 14:30 | disposition home or self-care (01) | DRG 53 ==
LOC: 3BNU 13:30 → EMEROO 13:30 → 3BNU 17:00 → SUATTDRO 02-17 18:41
PROVIDERS: ADMIT Registered Nurse; ATTEND Internal Medicine

== ENCOUNTER 2017-05-02 15:01 | Observation (INO) ==
[2017-05-02 15:35] LABS: Basophils # 0.1 K/mcL (0.0-0.2); Basophils % 0.9 %; Eosinophils # 0.2 K/mcL (0.0-0.6); Eosinophils % 1.8 %; Hematocrit 39.9 % (37.5-50.1); Hemoglobin 13.8 g/dL (12.9-16.9); Immature Granulocytes % 1.4 % (0-4); Lymphocytes # 2.7 K/mcL (0.6-4.6); Lymphocytes % 26.3 %; Mean Corpuscular HGB Conc 34.6 g/dL (31.6-35.5); Mean Corpuscular Hemoglobin 30.1 pg (28.0-33.3); Mean Corpuscular Volume 86.9 fL (83.0-100.0); Mean Platelet Volume 10.7 fL (9.4-12.4); Monocytes # 0.7 K/mcL (0.0-1.3); Monocytes % 6.8 %; Neutrophils # 6.4 K/mcL (1.6-8.9); Platelet Count 183 K/mcL (140-400); Red Blood Count 4.59 M/mcL (4.19-5.50); Red Cell Distribution Width 14.2 % (11.5-14.5); Segmented Neutrophils % 62.8 %
[2017-05-02 15:40] LABS: INR 1.2; Prothrombin Time 13.4 Seconds (9.4-12.1)
[2017-05-02 15:47] LABS: BUN/Creatinine Ratio 10 (6-26); Blood Urea Nitrogen 8 mg/dL (8-26); Calcium 8.9 mg/dL (8.6-10.8); Carbon Dioxide 33 mEq/L (19-29); Chloride 109 mEq/L (98-109); Glucose 78 mg/dL (70-99); Osmolality,Calculated 293 (280-300); Potassium 3.5 mEq/L (3.5-4.5); Sodium 143 mEq/L (136-145); eGFR For African Americans > 60 (> 60); eGFR For Non-African Americans > 60 (> 60)
[2017-05-02 15:55] LABS: Phenytoin (Dilantin) 4.5 mcg/mL (10-20)
--- NOTE | 2017-05-02 15:59 | Emergency Department Note ---
Disposition Clinical Impression: Light headedness, Frequent falls, Disequilibrium Chest pain Qualifiers: Chest pain type: unspecified Qualified Code(s): R07.9 - Chest pain, unspecified Disposition: Admitted As Inpatient Condition: Good Time of Disposition: 18:23 Chest Pain HPI - General Chief Complaint: ED Chest Pain Stated Complaint: Chest Pain Time Seen by Provider: 05/02/17 15:03 Source: patient, other Mode of arrival: ambulatory Limitations: no limitations Vital Signs Reviewed: Yes Nursing Notes Reviewed: Yes - History of Present Illness HPI Narrative: Patient is a 61-year-old male with past medical history of epilepsy, CAD, stent placement 2, cognitive delay, COPD. He presents today due to 2 different complaints. First complaint is chest pain for the past 1-2 weeks. He states that he has been having centered chest pain, described as sharp pressure, no radiation, associated with sweating but denies any nausea, vomiting, shortness of breath. He states that this happens both at rest and with exertion, is unsure if it gets worse with exertion. He has been using up to 5 sprays of nitroglycerin at home daily for the past 1-2 weeks. He states that this almost immediately resolves his chest pain. His second complaint is dizziness/ disequilibrium. He states that he has had multiple falls recently, tends to fall towards his right, feels off balance. He said occasionally he feels lightheaded, denies any dizziness or room spinning. He fell last night, hit his left hip on furniture. He also fell about a month or 2 ago onto his right shoulder and says he has significant pain in the right shoulder with flexion and extension since the fall. He was admitted to the hospital in January due to recurrent seizures. He is currently on Dilantin. He does note that he has frequent seizure activity and falls after these. He had a head CT inSept 2016 that was negative fora acute intracranial process. He currently does note some mild to moderate chest tightness currently but denies dyspnea. Does admit to occasional cough with COPD. Does not wear O2 at home. Uses home inhalers daily. Severity scale (1-10): 0 - Related Data Home Medications Medication Instructions Recorded Confirmed Albuterol Sulfate [Proair Hfa] 2 puff IH QID PRN 04/19/16 05/02/17 Aspirin 81 mg PO DAILY 04/19/16 05/02/17 Clopidogrel [Plavix] 75 mg PO DAILY 04/19/16 05/02/17 Linagliptin [Tradjenta] 5 mg PO DAILY 04/19/16 05/02/17 Loratadine [Claritin] 10 mg PO DAILY 04/19/16 05/02/17 Metformin HCl [Glucophage] 1,000 mg PO BID 04/19/16 05/02/17 OXcarbazepine [Trileptal] 300 mg PO BID 04/19/16 05/02/17 Oxycodone HCl 20 mg PO TID PRN 04/19/16 05/02/17 Phenytoin ER [Dilantin ER] 100 mg PO QAM 04/19/16 05/02/17 Trazodone HCl 100 mg PO HS 04/19/16 05/02/17 clonazePAM [Klonopin] 2 mg PO TID PRN 04/19/16 05/02/17 hydrOXYzine HCl [Hydroxyzine HCl] 25 mg PO TID PRN 04/19/16 05/02/17 Isosorbide MONOnitrate (24 HR) 60 mg PO DAILY 02/16/17 05/02/17 [Imdur] Phenytoin ER [Dilantin ER] 300 mg PO HS 02/16/17 05/02/17 Docusate [Colace] 100 mg PO DAILY PRN 05/02/17 05/02/17 Fluticasone Propionate Nasal 1 spray NS DAILY 05/02/17 05/02/17 [Flonase] Mupirocin [Bactroban Oint] 1 appl TP TID 05/02/17 05/02/17 Nitroglycerin [Nitroglycerin] 1 spray PO DAILY 05/02/17 05/02/17 [place]-3S/Dha/Epa/Fish Oil [Fish 1 cap PO DAILY 05/02/17 05/02/17 Oil [place]-3 Softgel] Pantoprazole Sodium [Protonix] 40 mg PO DAILY 05/02/17 05/02/17 Previous Rx's Medication Instructions Recorded LevETIRAcetam [Keppra] 1,000 mg PO Q12HR 30 Days tablet 04/23/16 Atorvastatin [Lipitor] 20 mg PO HS #30 tablet 07/14/16 Lisinopril [Zestril] 2.5 mg PO DAILY #30 tablet 07/14/16 Metoprolol [Lopressor] 25 mg PO BID #60 tablet 07/14/16 Allergies Allergy/AdvReac Type Severity Reaction Status Date / Time levofloxacin [From Levaquin] Allergy Hives Verified 07/11/16 14:47 naproxen Allergy Hives Verified 07/11/16 14:47 All systems ED: reviewed and negative except as stated. Constitutional: Denies: fever Cardiovascular: Reports: chest pain. Denies: palpitations Respiratory: Reports: cough, wheezes. Denies: dyspnea Gastrointestinal: Denies: abdominal pain, nausea, vomiting, diarrhea Genitourinary: Denies: urgency, dysuria, frequency Musculoskeletal: Reports: arthralgia Neurological: Reports: other (light headedness, disequilibrium). Denies: headache, weakness, numbness, paresthesias Chest Pain PMH - Past Medical History Medical history: Reports: arthritis, coronary artery disease, diabetes, GERD, hyperlipidemia, hypertension, myocardial infarction, seizures, other Surgical history: Reports: angioplasty/stent, appendectomy, cholecystectomy, herniorrhaphy, knee replacement Psychiatric history: Reports: anxiety, depression, panic disorder, other - Social History Smoking Status: Current every day smoker Alcohol use: Reports: none Drug use: Reports: none Physical Exam - General Limitations: no limitations General appearance: alert, in no apparent distress - Head Head exam: atraumatic, normocephalic, normal inspection - Eye Eye exam: Present: normal appearance, PERRL, EOMI - ENT ENT exam: normal exam, normal oropharynx, mucous membranes moist - Neck Neck exam: Present: normal inspection, full ROM, trachea midline - Chest Chest inspection: Present: normal inspection, symmetric chest wall rise - Respiratory Respiratory exam: Present: other (mild decreased in aeration of RLL). Absent: respiratory distress, wheezes - Cardiovascular Cardiovascular exam: Present: regular rate, normal rhythm, normal heart sounds - Abdominal Exam Abdominal exam: Present: soft, Non-Tender. Absent: tenderness, distention, guarding, rebound, rigidity - Extremities Exam Extremities exam: Present: other (tenderness of left ASIS compression/pelvis; tenderness of right shoudler with palpation of anterior right shoulder, right clavicle; pain of right shoudler with active flexion and extension. Neurovascularly intact RUE. The rest of the extremtiy exam WNL. ) - Neurological Exam Neurological exam: Present: alert, oriented X3 - Psychiatric Psychiatric exam: Present: normal affect, normal mood - Skin Skin exam: Present: warm, dry, intact, normal color Course Course Narrative: Systolic blood pressure 108. The rest of the vitals are within normal limits. Physical exam shows heart regular rate and rhythm, lungs show no wheezes but some mild decrease in aeration of right lower lobe. Abdomen soft and benign. Extremity exam shows: tenderness of left ASIS compression/pelvis; tenderness of right shoudler with palpation of anterior right shoulder, right clavicle; pain of right shoudler with active flexion and extension. Neurovascularly intact RUE. The rest of the extremtiy exam WNL. 16:17 EKG shows sinus bradycardia with no acute ST elevation or depression. There is T-wave inversion in lead 3, aVF. Troponin negative at 0.02. CXR neagtive. Pelvis and shoudler xray negative for fractures. CBC WNL. BMP not concerning. Dilantin level low at 4.5. Will give Dilantin loading dose of 400mg PO. Patient will need MRI for further workup of disequilibrium and frequent falls to the right. 17:34 Patient reassessed. He is still having mild chest discomfort despite taking nitro spray prior to coming in. Will admit the patient for further cardiac workup, further workup for disequilibrium and frequent falls. Pelvis X-Ray 05/02/17 15:27 IMPRESSION: No pelvic fracture identified. D/ / Kevin Velez MD / Kevin Velez MD Interpreting Provider: Kevin Velez MD Shoulder X-Ray 05/02/17 15:27 IMPRESSION: No acute abnormality. Mild glenohumeral joint degenerative osteoarthritis D/ / Vladimir Dyer MD / Vladimir Dyer MD Interpreting Provider: Vladimir Dyer MD Vital Signs Temperature 98.3 F 05/02/17 15:12 Pulse Rate 56 05/02/17 15:12 Respiratory Rate 18 05/02/17 15:12 Blood Pressure 108/74 05/02/17 15:12 O2 Sat by Pulse Oximetry 93 05/02/17 15:12 Temperature 98.3 F 05/02/17 15:12 Pulse Rate 47 05/02/17 16:59 Respiratory Rate 16 05/02/17 20:31 Blood Pressure 98/62 05/02/17 20:31 O2 Sat by Pulse Oximetry 95 05/02/17 16:59 Oxygen Delivery Oxygen Delivery Room Air Chest Pain - MDM Narrative Medical decision making narrative: EKG shows sinus bradycardia with no acute ST elevation or depression. There is T-wave inversion in lead 3, aVF. Troponin negative at 0.02. CXR neagtive. Pelvis and shoudler xray negative for fractures. CBC WNL. BMP not concerning. Dilantin level low at 4.5. Will give Dilantin loading dose of 400mg PO. Patient will need MRI for further workup of disequilibrium and frequent falls to the right. 17:34 Patient reassessed. He is still having mild chest discomfort despite taking nitro spray prior to coming in. Will admit the patient for further cardiac workup, further workup for disequilibrium and frequent falls. - Medical Records Medical records reviewed: Yes I reviewed the patient's medical records. - Lab Data Lab results reviewed: Yes I reviewed the patient's lab results. Result diagrams: 05/02/17 15:26 05/02/17 15:26 Lab Results 05/02/17 05/02/17 05/02/17 Range/Units 15:26 15:26 15:26 WBC 10.2 (4.3-11.1) K/mcL RBC 4.59 (4.19-5.50) M/mcL Hgb 13.8 (12.9-16.9) g/dL Hct 39.9 (37.5-50.1) % MCV 86.9 (83.0-100.0) fL MCH 30.1 (28.0-33.3) pg MCHC 34.6 (31.6-35.5) g/dL RDW 14.2 (11.5-14.5) % Plt Count 183 (140-400) K/mcL MPV 10.7 (9.4-12.4) fL Immature Gran % 1.4 (0-4) % Seg Neutrophils % 62.8 % Lymphocytes % 26.3 % Monocytes % 6.8 % Eosinophils % 1.8 % Basophils % 0.9 % Neutrophils # 6.4 (1.6-8.9) K/mcL Lymphocytes # 2.7 (0.6-4.6) K/mcL Monocytes # 0.7 (0.0-1.3) K/mcL Eosinophils # 0.2 (0.0-0.6) K/mcL Basophils # 0.1 (0.0-0.2) K/mcL PT 13.4 H (9.4-12.1) Seconds INR 1.2 APTT 33.0 (26.0-36.0) Seconds Sodium 143 (136-145) mEq/L Potassium 3.5 (3.5-4.5) mEq/L Chloride 109 (98-109) mEq/L Carbon Dioxide 33 H (19-29) mEq/L BUN 8 (8-26) mg/dL Creatinine 0.81 (0.72-1.25) mg/dL Est GFR ( Amer) > 60 (> 60) Est GFR (Non-Af Amer) > 60 (> 60) BUN/Creatinine Ratio 10 (6-26) Glucose 78 (70-99) mg/dL Calculated Osmolality 293 (280-300) Calcium 8.9 (8.6-10.8) mg/dL Troponin I (0-0.03) ng/mL Phenytoin 4.5 L (10-20) mcg/mL 05/02/17 Range/Units 15:26 WBC (4.3-11.1) K/mcL RBC (4.19-5.50) M/mcL Hgb (12.9-16.9) g/dL Hct (37.5-50.1) % MCV (83.0-100.0) fL MCH (28.0-33.3) pg MCHC (31.6-35.5) g/dL RDW (11.5-14.5) % Plt Count (140-400) K/mcL MPV (9.4-12.4) fL Immature Gran % (0-4) % Seg Neutrophils % % Lymphocytes % % Monocytes % % Eosinophils % % Basophils % % Neutrophils # (1.6-8.9) K/mcL Lymphocytes # (0.6-4.6) K/mcL Monocytes # (0.0-1.3) K/mcL Eosinophils # (0.0-0.6) K/mcL Basophils # (0.0-0.2) K/mcL PT (9.4-12.1) Seconds INR APTT (26.0-36.0) Seconds Sodium (136-145) mEq/L Potassium (3.5-4.5) mEq/L Chloride (98-109) mEq/L Carbon Dioxide (19-29) mEq/L BUN (8-26) mg/dL Creatinine (0.72-1.25) mg/dL Est GFR ( Amer) (> 60) Est GFR (Non-Af Amer) (> 60) BUN/Creatinine Ratio (6-26) Glucose (70-99) mg/dL Calculated Osmolality (280-300) Calcium (8.6-10.8) mg/dL Troponin I 0.02 (0-0.03) ng/mL Phenytoin (10-20) mcg/mL - Radiology Data Radiology results reviewed: Yes I reviewed the patient's radiology results. Pelvis X-Ray 05/02/17 15:27 IMPRESSION: No pelvic fracture identified. D/ / Kevin Velez MD / Kevin Velez MD Interpreting Provider: Kevin Velez MD Shoulder X-Ray 05/02/17 15:27 IMPRESSION: No acute abnormality. Mild glenohumeral joint degenerative osteoarthritis D/ / Vladimir Dyer MD / Vladimir Dyer MD Interpreting Provider: Vladimir Dyer MD - EKG Data EKG attestation: Yes I reviewed and interpreted this EKG. EKG results narrative: 05/02/2017 at 15:37. Sinus bradycardia. Rate 44. MA 159. QRS 156. QTc 473. Left axis deviation. No acute ST elevation or depression. T-wave inversion in lead 3, aVF. Heart Score - Score History: Moderately Suspicious EKG: Normal Age: 45-65 Risk Factors: Equal/Greater than 3 risk factor or history of atherosclerotic disease Troponin: Less than normal limit HEART Score Total: 4 S.B.AMarnie. - Jose Guadalupe Situation: Demographics, MOA Background: Presenting Complaint, Relevant PMH, Meds, & Allergies Assessment: Vital Signs, Course and respsone to treatment, Exam Concerns, Patient/Family Expectation, Pertinant Lab Results, Outstanding Labs Recommendation: Barrier(s) to disposition, Recommendation based on pending studies, treatments, or consults Jose Guadalupe Report Given to: Dr. Harman Shi Repor Time: 18:23 Attestation Statement - Attestation Attestation: I examined this patient and my medical decision-making was reviewed with the Resident Physician. I agree with the documented findings, disposition and treatment plan as described except to the extent set forth below. 61-year-old male presents stating his chest pain. He has a history of coronary disease and last had stents placed in July of this year. He has had increasing chest pain for the past several weeks that he says is similar to those symptoms he had prior to placement of the stent. 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 He is a poor historian and cannot characterize the pain other than he says feels same as it had back in July. He also complains of coughing and congestion with occasional green sputum. Occasional subjective fevers and chills. No abdominal pain. No known ill exposures. No ecchymosis travel. Patient is talkative and in no apparent distress. Oropharynx clear mucous membranes only slightly dry. Neck is supple. Chest with symmetrical diminished breath sounds throughout. No focal rhonchi or consolidation appreciated. Her exam regular chest wall nontender. Abdomen soft nondistended nontender. Extremity is warm and dry without asymmetric edema. EKG without any acute process and no change from prior EKG. Initial troponin is negative. Chest x-ray negative for acute changes He will be admitted for serial troponins and further evaluation of his chest pain
[2017-05-02] MEDS ORDERED: PHENYTOIN IVPB ONE (16:55)
[2017-05-02] MEDS ORDERED: hydrOXYzine pamoate 25 MG CAPSULE PO PRN (21:14)
[2017-05-02] MEDS ORDERED: *HR* Morphine 2 MG/ML SYRINGE IVP PRN (21:21)
[2017-05-02] MEDS ORDERED: Naloxone 0.4 MG/ML INJ IVP PRN (21:21)
[2017-05-02] MEDS ORDERED: Ipratropium/Albuterol Neb 3 ML IH PRN (21:24)
--- NOTE | 2017-05-02 21:28 | Internal Med History&Physical ---
Date of Encounter: 05/02/17 Time of Encounter: 21:27 Assessment and Plan (1) Chest pain Current visit: Yes Status: Acute uncertain whether CP is due to cardiac etiology - trend trop for now, tele CP could be related to acute bronchitis - will treat Qualifiers: Chest pain type: other chest pain Qualified Code(s): R07.89 - Other chest pain; R07.8 - Other chest pain (2) Acute bronchitis Current visit: Yes Status: Acute duonebs, IV steroids, IV azithro send RVP Qualifiers: Bronchitis organism: other organism Qualified Code(s): J20.8 - Acute bronchitis due to other specified organisms (3) CAD (coronary artery disease) Current visit: No Status: Chronic continue DAPT Qualifiers: Coronary Disease-Associated Artery/Lesion type: [place] artery [place] vs. transplanted heart: [place] heart Associated angina: without angina Qualified Code(s): I25.10 - Atherosclerotic heart disease of [place] coronary artery without angina pectoris (4) Diabetes mellitus Current visit: No Status: Chronic continue med Qualifiers: Diabetes mellitus type: type 2 Diabetes mellitus complication status: with unspecified complications Diabetes mellitus buttermaker helper insulin use: without buttermaker helper use Qualified Code(s): E11.8 - Type 2 diabetes mellitus with unspecified complications (5) Seizure disorder Current visit: No Status: Chronic continue med Internal Medicine - H&P: HPI Chief complaint: CP History of present illness: Mr. Najera is a 61 year old male who was admitted from the ED for CP eval. He visits with Dr Parks of cards s/p stents approx 5 years ago and repeat later this year. He reports development of CP associated with SOB in the last 2- 3 weeks. CP excruciating, sharp, lingering, on/off. Also was sore throat and URI type complaints since Mar. He smokes 5-6 cigarettes/day. EKG personally reviewed with rate 44 RBBB (appears old) FINDINGS: Cardiac and mediastinal contours are unchanged. No evidence of focal consolidation, pneumothorax, or sizable pleural effusion. XR/XR pelvis AP view IMPRESSION: No pelvic fracture identified. XR/XR shoulder complete RT IMPRESSION: No acute abnormality. Mild glenohumeral joint degenerative osteoarthritis Past Med Surg Social Fam HX - Past Medical History Medical history: arthritis, coronary artery disease, diabetes, GERD, hyperlipidemia, hypertension, myocardial infarction, seizures, other Psychiatric history: anxiety, depression, panic disorder, other - Past Surgical History Surgical History: angioplasty/stent, appendectomy, cholecystectomy, herniorrhaphy, knee replacement - Social History Smoking Status: Current every day smoker Smokeless Tobacco Status: No Alcohol use: none Drug use: none - Family History Sister Adopted: No Living Status: Hx Family Cardiac Disorders: Yes (SISTER WITH PACEMAKER & VALVE) Hx Family Respiratory Disorders: Yes (SISTER WITH COPD) Hx Family Cancer: Yes (SISTER OF BRAIN CANCER) Hx Family GI Disorders: (UNKNOWN) Hx Family Endocrine Disorder: Yes (SISTER WITH DM) Internal Medicine - H&P: Meds Albuterol Sulfate [Proair Hfa] 2 puff IH QID PRN 04/19/16 [History] Aspirin 81 mg PO DAILY 04/19/16 [History] Clopidogrel [Plavix] 75 mg PO DAILY 04/19/16 [History] Linagliptin [Tradjenta] 5 mg PO DAILY 04/19/16 [History] Loratadine [Claritin] 10 mg PO DAILY 04/19/16 [History] Metformin HCl [Glucophage] 1,000 mg PO BID 04/19/16 [History] OXcarbazepine [Trileptal] 300 mg PO BID 04/19/16 [History] Oxycodone HCl 20 mg PO TID PRN 04/19/16 [History] Phenytoin ER [Dilantin ER] 100 mg PO QAM 04/19/16 [History] Trazodone HCl 100 mg PO HS 04/19/16 [History] clonazePAM [Klonopin] 2 mg PO TID PRN 04/19/16 [History] hydrOXYzine HCl [Hydroxyzine HCl] 25 mg PO TID PRN 04/19/16 [History] LevETIRAcetam [Keppra] 1,000 mg PO Q12HR 30 Days tablet 04/23/16 [Rx] Atorvastatin [Lipitor] 20 mg PO HS #30 tablet 07/14/16 [Rx] Lisinopril [Zestril] 2.5 mg PO DAILY #30 tablet 07/14/16 [Rx] Metoprolol [Lopressor] 25 mg PO BID #60 tablet 07/14/16 [Rx] Isosorbide MONOnitrate (24 HR) [Imdur] 60 mg PO DAILY 02/16/17 [History] Phenytoin ER [Dilantin ER] 300 mg PO HS 02/16/17 [History] Docusate [Colace] 100 mg PO DAILY PRN 05/02/17 [History] Fluticasone Propionate Nasal [Flonase] 1 spray NS DAILY 05/02/17 [History] Mupirocin [Bactroban Oint] 1 appl TP TID 05/02/17 [History] Nitroglycerin [Nitroglycerin] 1 spray PO DAILY 05/02/17 [History] [place]-3S/Dha/Epa/Fish Oil [Fish Oil [place]-3 Softgel] 1 cap PO DAILY 05/02/17 [ History] Pantoprazole Sodium [Protonix] 40 mg PO DAILY 05/02/17 [History] 3 Allergy/AdvReac Type Severity Reaction Status Date / Time levofloxacin [From Levaquin] Allergy Hives Verified 07/11/16 14:47 naproxen Allergy Hives Verified 07/11/16 14:47 All Systems PM: A 10-system review of systems was performed and is negative for pertinent findings except as documented above in the HPI. Review of systems: ROS 14 point review of systems reviewed as best as possible given presentation. Pertinent positive or negative as per HPI or otherwise reviewed as negative - Constitutional Vitals: Temp Pulse Resp BP Pulse Ox 98.1 F 47 16 121/73 95 05/02/17 21:16 05/02/17 21:16 05/02/17 21:16 05/02/17 21:16 05/02/17 21:16 Exam: General - AAO x 3 Psych - Appropriate affect/speech. No agitation Eyes - MEG. Eye lids intact. No scleral icterus Heart - Sinus. RRR. S1 and S2 present. No added HS/murmurs appreciated. No elevated JVD appreciated. Lung - Adequate air entry b/l, No crackles, scant rhonchi appreciated GI - Soft, non-tender. No hepatosplenomegaly/ascites. BS+ - No CVA/suprapubic tenderness or palpable bladder distension Internal Med - H&P Results - Labs CBC & Chem 7: 05/02/17 15:26 05/02/17 15:26
[2017-05-02] MEDS: levETIRAcetam 250 MG TABLET PO SCH (22:34)
[2017-05-02] MEDS: clonazePAM 1 MG TABLET PO PRN (22:36)
[2017-05-02] MEDS: OXcarbazepine 150 MG TABLET PO SCH (22:36)
[2017-05-02] MEDS: traZODone 50 MG TABLET PO SCH (22:36)
[2017-05-02] MEDS: Azithromycin 500 MG in D5% in Water 250 ML IVPB SCH (22:37)
[2017-05-02] MEDS: MethylPREDNISolone 40 MG/ML VIAL IVP SCH (23:11)
[2017-05-03 00:29] LABS: Adenovirus Not Detected (Not Detect); Bordetella Pertussis Not Detected (Not Detect); Chlamydophila pneumoniae Not Detected (Not Detect); Coronavirus 229E Not Detected (Not Detect); Coronavirus HKU1 Not Detected (Not Detect); Coronavirus NL63 Not Detected (Not Detect); Coronavirus OC43 Not Detected (Not Detect); Human Metapneumovirus Not Detected (Not Detect); Human Rhinovirus/Enterovirus ***DETECTED*** (Not Detect); Influenza A Subtype 2009 H1 Not Detected (Not Detect); Influenza A Untypeable Not Detected (Not Detect); Influenza B Not Detected (Not Detect); Mycoplasma pneumoniae Not Detected (Not Detect); Parainfluenza Virus 1 Not Detected (Not Detect); Parainfluenza Virus 2 Not Detected (Not Detect); Parainfluenza Virus 3 Not Detected (Not Detect); Parainfluenza Virus 4 Not Detected (Not Detect); Respiratory Syncytial Virus Not Detected (Not Detect)
[2017-05-03] MEDS: Ipratropium/Albuterol Neb 3 ML IH SCH ×4 (03:45→22:55)
[2017-05-03 04:57] LABS: Basophils # 0.1 K/mcL (0.0-0.2); Basophils % 0.4 %; Eosinophils % 0.3 %; Hematocrit 42.7 % (37.5-50.1); Hemoglobin 14.7 g/dL (12.9-16.9); Immature Granulocytes % 0.9 % (0-4); Lymphocytes # 1.4 K/mcL (0.6-4.6); Lymphocytes % 12.2 %; Mean Corpuscular HGB Conc 34.4 g/dL (31.6-35.5); Mean Corpuscular Volume 87.1 fL (83.0-100.0); Mean Platelet Volume 11.9 fL (9.4-12.4); Monocytes # 0.2 K/mcL (0.0-1.3); Neutrophils # 9.8 K/mcL (1.6-8.9); Platelet Count 177 K/mcL (140-400); Red Cell Distribution Width 14.3 % (11.5-14.5); Segmented Neutrophils % 84.2 %
[2017-05-03 05:11] LABS: BUN/Creatinine Ratio 12 (6-26); Blood Urea Nitrogen 9 mg/dL (8-26); Calcium 8.9 mg/dL (8.6-10.8); Carbon Dioxide 21 mEq/L (19-29); Chloride 108 mEq/L (98-109); Glucose 109 mg/dL (70-99); Magnesium 1.9 mg/dL (1.6-2.6); Osmolality,Calculated 287 (280-300); Potassium 3.4 mEq/L (3.5-4.5); Sodium 139 mEq/L (136-145); eGFR For African Americans > 60 (> 60); eGFR For Non-African Americans > 60 (> 60)
[2017-05-03] MEDS: *HR* Enoxaparin 40 MG/0.4 ML SYRINGE SQ SCH (06:05)
[2017-05-03] MEDS: Loratadine 10 MG TABLET PO SCH (08:12)
[2017-05-03] MEDS: Aspirin 81 MG TAB.CHEW PO SCH (08:12)
[2017-05-03] MEDS: *HR* Metformin 500 MG TABLET PO SCH ×2 (08:12→16:07)
[2017-05-03] MEDS: MethylPREDNISolone 40 MG/ML VIAL IVP SCH ×2 (08:14→22:28)
[2017-05-03] MEDS: Isosorbide MONOnitrate (24 HR) 60 MG TAB.ER.24H PO SCH (08:14)
[2017-05-03] MEDS: OXcarbazepine 150 MG TABLET PO SCH ×2 (08:15→21:21)
[2017-05-03] MEDS: Fluticasone Propionate Nasal 50 MCG/SPRAY BOTTLE NS SCH (08:16)
[2017-05-03] MEDS: levETIRAcetam 250 MG TABLET PO SCH ×2 (10:04→21:22)
--- NOTE | 2017-05-03 15:02 | Internal Med Progress Note ---
Date of Encounter: 05/03/17 Time of Encounter: 14:59 - Assessment and plan (1) Acute bronchitis Current Visit: Yes Status: Acute Assessment and plan: Patient likely has acute bronchitis. Is presently on azithromycin. Patient's echo/rhinovirus PCR is positive. We will continue present treatment. We will observe him very closely in terms of his bronchitis symptoms. Qualifiers: Bronchitis organism: other organism Qualified Code(s): J20.8 - Acute bronchitis due to other specified organisms (2) Seizure Current Visit: No Status: Acute Assessment and plan: Patient is known to have a seizure. No new seizure activity noted. Home medications resumed. (3) CAD (coronary artery disease) Current Visit: No Status: Chronic Assessment and plan: Patient had a previous ST elevation microinfarction. Patient is chest pain-free now Qualifiers: Coronary Disease-Associated Artery/Lesion type: [place] artery [place] vs. transplanted heart: [place] heart Associated angina: without angina Qualified Code(s): I25.10 - Atherosclerotic heart disease of [place] coronary artery without angina pectoris (4) Chest pain Current Visit: Yes Status: Acute Assessment and plan: Patient denies chest Qualifiers: Chest pain type: other chest pain Qualified Code(s): R07.89 - Other chest pain; R07.8 - Other chest pain (5) Diabetes mellitus Current Visit: No Status: Chronic Assessment and plan: Stable Qualifiers: Diabetes mellitus type: type 2 Diabetes mellitus complication status: with unspecified complications Diabetes mellitus assisted insulin use: without assisted use Qualified Code(s): E11.8 - Type 2 diabetes mellitus with unspecified complications (6) DVT prophylaxis Current Visit: No Status: Acute Assessment and plan: Heparin - Subjective Interval history: Patient seen and examined. chart reviewed. Patient is comfortably lying in bed. Patient denies chest pain. Patient complains of cough with mucopurulent expectoration. - Constitutional Vitals: Temp Pulse Resp BP Pulse Ox 97.8 F 47 16 101/59 100 05/03/17 11:37 05/03/17 11:37 05/03/17 11:37 05/03/17 11:37 05/03/17 11:37 General appearance: Present: A&O X 3, pleasant, no acute distress, answers questions appropriately - Head Head exam: Present: atraumatic, normocephalic - Eye Eye exam: Present: PERRL, conjuntiva pink, sclera anicteric Pupils: Present: PERRL - Neck Neck exam general surgery: Present: supple, trachea midline. Absent: lymphadenopathy - Respiratory Respiratory exam: Present: CTAB. Absent: accessory muscle use, rales, rhonchi, wheezes - Cardiovascular Cardiovascular exam: Present: RRR, +S1, +S2. Absent: diastolic murmur, gallop, rubs, systolic murmur - GI/Abdominal GI/Abdominal exam: Present: normal bowel sounds, soft, no peritoneal signs. Absent: distended, tenderness - Extremities Exam Extremities exam: Present: warm, radial pulses palpable and symmetrical. Absent : calf tenderness, cyanotic, pedal edema - Neurological Exam Neurological exam: Present: CN II-XII intact, oriented X3, no focal deficits. Absent: pronater drift, facial droop, speech deficit - Skin Skin exam: Present: dry, intact Internal Medicine: Result - Labs CBC & Chem 7: 05/03/17 03:37 05/03/17 03:37 Labs: Short CBC 05/03/17 Range/Units 03:37 WBC 11.7 H (4.3-11.1) K/mcL Hgb 14.7 (12.9-16.9) g/dL Hct 42.7 (37.5-50.1) % Plt Count 177 (140-400) K/mcL Neutrophils # 9.8 H (1.6-8.9) K/mcL BMP 05/03/17 03:37 Sodium 139 Potassium 3.4 L Chloride 108 Carbon Dioxide 21 BUN 9 Creatinine 0.76 Glucose 109 H Calcium 8.9 Cardiac Enzymes 05/02/17 05/03/17 05/03/17 Range/Units 21:58 03:37 08:54 Troponin I 0.02 0.03 0.01 (0-0.03) ng/mL - ABG Interpretation ABG results: PT/INR, D-dimer PT 13.4 Seconds (9.4-12.1) H 05/02/17 15:26 Consult Discharge Plan - Plan Referrals: Jerry Almeida MD [Primary Care Provider] -
[2017-05-03] MEDS: traZODone 50 MG TABLET PO SCH (21:22)
[2017-05-03] MEDS: Azithromycin 500 MG in D5% in Water 250 ML IVPB SCH (22:28)
[2017-05-04] MEDS: Ipratropium/Albuterol Neb 3 ML IH SCH ×4 (04:08→22:29)
[2017-05-04 05:16] LABS: Basophils # 0.1 K/mcL (0.0-0.2); Basophils % 0.4 %; Eosinophils % 0.1 %; Hematocrit 37.9 % (37.5-50.1); Hemoglobin 13.1 g/dL (12.9-16.9); Lymphocytes # 2.2 K/mcL (0.6-4.6); Lymphocytes % 16.6 %; Mean Corpuscular HGB Conc 34.6 g/dL (31.6-35.5); Mean Corpuscular Hemoglobin 29.8 pg (28.0-33.3); Mean Corpuscular Volume 86.3 fL (83.0-100.0); Mean Platelet Volume 11.4 fL (9.4-12.4); Monocytes # 0.5 K/mcL (0.0-1.3); Monocytes % 3.9 %; Neutrophils # 10.3 K/mcL (1.6-8.9); Platelet Count 175 K/mcL (140-400); Red Blood Count 4.39 M/mcL (4.19-5.50); Red Cell Distribution Width 14.1 % (11.5-14.5)
[2017-05-04 05:21] LABS: BUN/Creatinine Ratio 18 (6-26); Blood Urea Nitrogen 14 mg/dL (8-26); Calcium 8.7 mg/dL (8.6-10.8); Chloride 111 mEq/L (98-109); Glucose 128 mg/dL (70-99); Magnesium 1.6 mg/dL (1.6-2.6); Osmolality,Calculated 294 (280-300); Potassium 4.1 mEq/L (3.5-4.5); Sodium 141 mEq/L (136-145); eGFR For African Americans > 60 (> 60); eGFR For Non-African Americans > 60 (> 60)
[2017-05-04] MEDS: *HR* Enoxaparin 40 MG/0.4 ML SYRINGE SQ SCH (06:00)
[2017-05-04 06:17] LABS: Carbon Dioxide 22 mEq/L (19-29)
[2017-05-04] MEDS: *HR* Metformin 500 MG TABLET PO SCH ×2 (08:40→17:26)
[2017-05-04] MEDS: Aspirin 81 MG TAB.CHEW PO SCH (08:40)
[2017-05-04] MEDS: Isosorbide MONOnitrate (24 HR) 60 MG TAB.ER.24H PO SCH (08:41)
[2017-05-04] MEDS: Loratadine 10 MG TABLET PO SCH (08:41)
[2017-05-04] MEDS: OXcarbazepine 150 MG TABLET PO SCH ×2 (08:41→20:47)
[2017-05-04] MEDS: MethylPREDNISolone 40 MG/ML VIAL IVP SCH ×2 (08:42→20:46)
[2017-05-04] MEDS: levETIRAcetam 250 MG TABLET PO SCH ×2 (08:42→20:46)
[2017-05-04] MEDS: Fluticasone Propionate Nasal 50 MCG/SPRAY BOTTLE NS SCH (08:43)
[2017-05-04] MEDS: *HR* OxyCODONE Immed Rel 5 MG TABLET PO PRN ×3 (08:53→20:50)
--- NOTE | 2017-05-04 14:56 | Internal Med Progress Note ---
Date of Encounter: 05/04/17 Time of Encounter: 14:54 - Assessment and plan (1) Acute bronchitis Current Visit: Yes Status: Acute Assessment and plan: Patient likely has acute bronchitis. Is presently on azithromycin. Patient's echo/rhinovirus PCR is positive. We will continue present treatment. We will observe him very closely in terms of his bronchitis symptoms. 05/04/2017 Azithromycin day 3 We will continue present treatment for now. Noted that white count is slightly elevated. We will monitor white count very closely. If white count is downward trend and patient feeling better then he can go home tomorrow. Qualifiers: Bronchitis organism: other organism Qualified Code(s): J20.8 - Acute bronchitis due to other specified organisms (2) Seizure Current Visit: No Status: Acute Assessment and plan: Patient is known to have a seizure. No new seizure activity noted. Home medications resumed. (3) CAD (coronary artery disease) Current Visit: No Status: Chronic Assessment and plan: Patient had a previous ST elevation microinfarction. Patient is chest pain-free now Qualifiers: Coronary Disease-Associated Artery/Lesion type: [place] artery [place] vs. transplanted heart: [place] heart Associated angina: without angina Qualified Code(s): I25.10 - Atherosclerotic heart disease of [place] coronary artery without angina pectoris (4) Chest pain Current Visit: Yes Status: Acute Assessment and plan: Patient denies chest Qualifiers: Chest pain type: other chest pain Qualified Code(s): R07.89 - Other chest pain; R07.8 - Other chest pain (5) Diabetes mellitus Current Visit: No Status: Chronic Assessment and plan: Stable Qualifiers: Diabetes mellitus type: type 2 Diabetes mellitus complication status: with unspecified complications Diabetes mellitus superintendent terminal insulin use: without superintendent terminal use Qualified Code(s): E11.8 - Type 2 diabetes mellitus with unspecified complications (6) DVT prophylaxis Current Visit: No Status: Acute Assessment and plan: Heparin - Subjective Interval history: Patient seen and examined. chart reviewed. Patient is comfortably lying in bed. Patient denies chest pain. Patient complains of cough with mucopurulent expectoration. 05/04/2017 Patient seen and examined. Chart reviewed. Patient is still coughing. Patient is occasional wheeze. Patient denies any chest pain, shortness of breath, nausea, vomiting, abdominal pain, dizziness and diarrhea - Constitutional Vitals: Temp Pulse Resp BP Pulse Ox 97.3 F L 88 20 120/71 95 05/04/17 11:09 05/04/17 11:09 05/04/17 11:16 05/04/17 11:09 05/04/17 11:16 General appearance: Present: A&O X 3, pleasant, no acute distress, answers questions appropriately - Head Head exam: Present: atraumatic, normocephalic - Eye Eye exam: Present: PERRL, conjuntiva pink, sclera anicteric Pupils: Present: PERRL - Neck Neck exam general surgery: Present: supple, trachea midline. Absent: lymphadenopathy - Respiratory Respiratory exam: Present: CTAB. Absent: accessory muscle use, rales, rhonchi, wheezes - Cardiovascular Cardiovascular exam: Present: RRR, +S1, +S2. Absent: diastolic murmur, gallop, rubs, systolic murmur - GI/Abdominal GI/Abdominal exam: Present: normal bowel sounds, soft, no peritoneal signs. Absent: distended, tenderness - Extremities Exam Extremities exam: Present: warm, radial pulses palpable and symmetrical. Absent : calf tenderness, cyanotic, pedal edema - Neurological Exam Neurological exam: Present: CN II-XII intact, oriented X3, no focal deficits. Absent: pronater drift, facial droop, speech deficit - Skin Skin exam: Present: dry, intact Internal Medicine: Result - Labs CBC & Chem 7: 05/04/17 04:51 05/04/17 04:51 Labs: Short CBC 05/04/17 Range/Units 04:51 WBC 13.2 H (4.3-11.1) K/mcL Hgb 13.1 D (12.9-16.9) g/dL Hct 37.9 (37.5-50.1) % Plt Count 175 (140-400) K/mcL Neutrophils # 10.3 H (1.6-8.9) K/mcL BMP 05/04/17 04:51 Sodium 141 Potassium 4.1 Chloride 111 H Carbon Dioxide 22 BUN 14 Creatinine 0.77 Glucose 128 H Calcium 8.7 - ABG Interpretation ABG results: PT/INR, D-dimer PT 13.4 Seconds (9.4-12.1) H 05/02/17 15:26 Consult Discharge Plan - Plan Referrals: Jerry Almeida MD [Primary Care Provider] -
[2017-05-04] MEDS: clonazePAM 1 MG TABLET PO PRN ×2 (17:31→20:49)
[2017-05-04] MEDS: traZODone 50 MG TABLET PO SCH (20:46)
[2017-05-04] MEDS: Azithromycin 500 MG in D5% in Water 250 ML IVPB SCH (20:50)
[2017-05-05] MEDS: Ipratropium/Albuterol Neb 3 ML IH SCH ×2 (04:37→11:09)
[2017-05-05 05:41] LABS: Hematocrit 37.1 % (37.5-50.1); Hemoglobin 12.8 g/dL (12.9-16.9); Immature Granulocytes % 0.9 % (0-4); Lymphocytes % 26.5 %; Mean Corpuscular HGB Conc 34.5 g/dL (31.6-35.5); Mean Corpuscular Volume 86.9 fL (83.0-100.0); Mean Platelet Volume 11.2 fL (9.4-12.4); Platelet Count 169 K/mcL (140-400); Red Blood Count 4.27 M/mcL (4.19-5.50); Red Cell Distribution Width 14.5 % (11.5-14.5); Segmented Neutrophils % 66.7 %
[2017-05-05 05:42] LABS: Basophils % 0.3 %; Eosinophils % 0.1 %; Lymphocytes # 3.3 K/mcL (0.6-4.6); Monocytes # 0.7 K/mcL (0.0-1.3); Monocytes % 5.5 %; Neutrophils # 8.3 K/mcL (1.6-8.9)
[2017-05-05] MEDS: *HR* Enoxaparin 40 MG/0.4 ML SYRINGE SQ SCH (05:52)
[2017-05-05 05:55] LABS: BUN/Creatinine Ratio 18 (6-26); Blood Urea Nitrogen 13 mg/dL (8-26); Carbon Dioxide 26 mEq/L (19-29); Chloride 105 mEq/L (98-109); Glucose 98 mg/dL (70-99); Magnesium 1.4 mg/dL (1.6-2.6); Osmolality,Calculated 292 (280-300); Potassium 3.9 mEq/L (3.5-4.5); Sodium 141 mEq/L (136-145); eGFR For African Americans > 60 (> 60); eGFR For Non-African Americans > 60 (> 60)
--- NOTE | 2017-05-05 08:59 | Discharge Summary ---
Date of Encounter: 05/05/17 Time of Encounter: 08:42 - Discharge Diagnosis (1) Acute bronchitis Priority: Primary Status: Acute Comments: suspected. Symptomatic with SOB and cough. CXR non-acute. Symptoms improved with IV azithromycin, breathing treatments. Discharge home on Z-Thor, steroid burst. Smoking cessation advised. Qualifiers: Bronchitis organism: unspecified organism Qualified Code(s): J20.9 - Acute bronchitis, unspecified (2) CAD (coronary artery disease) Priority: Primary Status: Chronic Comments: hx STEMI 07/2016. C 07/11/2016 with severe 1 vessel CAD, s/p PCI with bare metal stent to mid circumflex. Patient now reports intermittent chest pain for 1-2 weeks prior to presentation. Says he has been using sublingual nitroglycerin up to 5 times per day. Was seen a gang ripsaw operator office on 05/02/2017; isosorbide increased at that time. Patient was sent to ER from gang ripsaw operator office for further evaluation of chest pain. Serial troponin negative, no acute EKG changes. Cardiology consulted however patient decided to leave [place] as he had obligations at home. Strongly encouraged patient to stay inpatient for cardiology consultation, explained risk of leaving including recurrent [place], cardiac arrest. Patient verbalized understanding however still declined to stay. Continue home ASA, statin, Plavix, BB, nitrate. Qualifiers: Coronary Disease-Associated Artery/Lesion type: [place] artery [place] vs. transplanted heart: [place] heart Associated angina: with unstable angina Qualified Code(s): I25.110 - Atherosclerotic heart disease of [place] coronary artery with unstable angina pectoris (3) Seizure disorder Priority: Primary Status: Chronic Comments: per hx. Admitted 01/2017 for breakthrough seizure at that time. Was evaluated by Neurology who recommended continuing home Trileptal, adding Keppra and weaning dilantin on an outpatient basis. Patient follows with neurology in [place], unsure of neurologist's name. Says Dilantin was recently changed but he is not sure of dose was increased or decreased. Patient will like to transfer care to [place] [facility]; continue home Trileptal, Keppra, Dilantin for now. Defer further titration of AEDs to neurology. (4) Diabetes mellitus Priority: Primary Status: Chronic Comments: per hx. Cont home metformin Qualifiers: Diabetes mellitus type: type 2 Diabetes mellitus complication status: with unspecified complications Diabetes mellitus shelter insulin use: without shelter use Qualified Code(s): E11.8 - Type 2 diabetes mellitus with unspecified complications - Discharge Medications Prescriptions: Azithromycin [Azithromycin 6-Tab Pack] 250 mg PO PER PKG DI #6 tab predniSONE [PredniSONE] 40 mg PO DAILY #10 tablet Home Medications: Albuterol Sulfate [Proair Hfa] 2 puff IH QID PRN 04/19/16 [History] Aspirin 81 mg PO DAILY 04/19/16 [History] Clopidogrel [Plavix] 75 mg PO DAILY 04/19/16 [History] Linagliptin [Tradjenta] 5 mg PO DAILY 04/19/16 [History] Loratadine [Claritin] 10 mg PO DAILY 04/19/16 [History] Metformin HCl [Glucophage] 1,000 mg PO BID 04/19/16 [History] OXcarbazepine [Trileptal] 300 mg PO BID 04/19/16 [History] Oxycodone HCl 20 mg PO TID PRN 04/19/16 [History] Phenytoin ER [Dilantin ER] 100 mg PO QAM 04/19/16 [History] Trazodone HCl 100 mg PO HS 04/19/16 [History] clonazePAM [Klonopin] 2 mg PO TID PRN 04/19/16 [History] hydrOXYzine HCl [Hydroxyzine HCl] 25 mg PO TID PRN 04/19/16 [History] LevETIRAcetam [Keppra] 1,000 mg PO Q12HR 30 Days tablet 04/23/16 [Rx] Atorvastatin [Lipitor] 20 mg PO HS #30 tablet 07/14/16 [Rx] Lisinopril [Zestril] 2.5 mg PO DAILY #30 tablet 07/14/16 [Rx] Metoprolol [Lopressor] 25 mg PO BID #60 tablet 07/14/16 [Rx] Isosorbide MONOnitrate (24 HR) [Imdur] 60 mg PO DAILY 02/16/17 [History] Phenytoin ER [Dilantin ER] 300 mg PO HS 02/16/17 [History] Docusate [Colace] 100 mg PO DAILY PRN 05/02/17 [History] Fluticasone Propionate Nasal [Flonase] 1 spray NS DAILY 05/02/17 [History] Mupirocin [Bactroban Oint] 1 appl TP TID 05/02/17 [History] Nitroglycerin 1 spray PO DAILY 05/02/17 [History] [place]-3S/Dha/Epa/Fish Oil [Fish Oil [place]-3 Softgel] 1 cap PO DAILY 05/02/17 [ History] Pantoprazole Sodium [Protonix] 40 mg PO DAILY 05/02/17 [History] Azithromycin [Azithromycin 6-Tab Pack] 250 mg PO PER PKG DI #6 tab 05/05/17 [Rx] predniSONE [PredniSONE] 40 mg PO DAILY #10 tablet 05/05/17 [Rx] Allergies/Adverse Reactions: 3 Allergy/AdvReac Type Severity Reaction Status Date / Time levofloxacin [From Levaquin] Allergy Hives Verified 07/11/16 14:47 naproxen Allergy Hives Verified 07/11/16 14:47 Date of admission: 05/02/17 18:43 Primary care physician: Jerry Almeida MD Discharging clinician: Katie Mcmahon Anticipated date of discharge: 05/05/17 - Patient Status Disposition: Left Against Medical Advice Condition: Good Functional capacity at discharge: independent ambulation Overall status at discharge: patient is progressing back to baseline - Discharge Instructions Instructions: Coronary Artery Disease (DC), Chest Pain (DC), Acute Bronchitis ( DC), Azithromycin (By mouth), Prednisone (By mouth) Follow Up With: Jerry Almeida MD [Primary Care Provider] - Shea Parks MD [Partnered Physician] - Ruthie Gloria MD [Partnered Physician] - (Patient would like to transfer care to [facility].) Additional Instructions: Please keep your appointment with your care physician on 05/07/2017 Please call the gang ripsaw operator's office: Dr. Parks at [phone] and make an appointment within one week A follow-up appointment with [facility] has been requested for you. Please call [phone] to schedule an appointment if you have not heard from the office within 2 weeks. - Diet and Activity Activity: as per physical therapy Diet: advance to your usual diet, diabetic diet, low fat, low cholesterol Interval History: Seen and examined at bedside. Patient is new to me, information obtained from chart review and patient report. Patient says he feels much better and would like to discharge home today. Per chart review, patient was sent to ER from gang ripsaw operator's office for further evaluation of chest pain. I discussed with him the concern of recurrent chest pain and daily use of nitroglycerin and would like to consult cardiology however patient says his obligations at home and wants to leave. I strongly discouraged leaving however patient insisted. States he has a dog at home that has not been fed in 2 days and he has a doctor' s appointment in 2 days he has to make it to. Advised patient to return to the ER if he had chest pain or shortness of breath recurrence. Hospital course: See assessment and plan for hospital course. - Time Spent with Patient Total time spent providing and/or coordinating discharge services: - Constitutional Vitals: Temp Pulse Resp BP Pulse Ox 97.8 F 91 20 94/53 94 05/05/17 06:37 05/05/17 06:37 05/05/17 06:37 05/05/17 06:37 05/05/17 06:37 General appearance: Present: A&O X 3, pleasant, no acute distress, answers questions appropriately - Head Head exam: Present: atraumatic, normocephalic - Eye Eye exam: Present: PERRL, conjuntiva pink, sclera anicteric Pupils: Present: PERRL - Neck Neck exam general surgery: Present: supple, trachea midline. Absent: lymphadenopathy - Respiratory Respiratory exam: Present: CTAB. Absent: accessory muscle use, rales, rhonchi, wheezes - Cardiovascular Cardiovascular exam: Present: RRR, +S1, +S2. Absent: diastolic murmur, gallop, rubs, systolic murmur - GI/Abdominal GI/Abdominal exam: Present: normal bowel sounds, soft, no peritoneal signs. Absent: distended, tenderness - Extremities Exam Extremities exam: Present: warm, radial pulses palpable and symmetrical. Absent : calf tenderness, cyanotic, pedal edema - Neurological Exam Neurological exam: Present: CN II-XII intact, oriented X3, no focal deficits. Absent: pronater drift, facial droop, speech deficit - Skin Skin exam: Present: dry, intact
[2017-05-05] MEDS: Isosorbide MONOnitrate (24 HR) 60 MG TAB.ER.24H PO SCH (09:41)
[2017-05-05] MEDS: *HR* Metformin 500 MG TABLET PO SCH (09:45)
[2017-05-05] MEDS: OXcarbazepine 150 MG TABLET PO SCH (09:45)
[2017-05-05] MEDS: Loratadine 10 MG TABLET PO SCH (09:45)
[2017-05-05] MEDS: levETIRAcetam 250 MG TABLET PO SCH (09:46)
[2017-05-05] MEDS: MethylPREDNISolone 40 MG/ML VIAL IVP SCH (09:46)
[2017-05-05] MEDS: Fluticasone Propionate Nasal 50 MCG/SPRAY BOTTLE NS SCH (09:46)
[2017-05-05] MEDS: Aspirin 81 MG TAB.CHEW PO SCH (09:46)
[2017-05-05 11:06] VITALS: BP 125/73
--- NOTE | 2017-05-06 22:47 | Electrocardiograph Report ---
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
== END 2017-05-05 11:45 | disposition left against medical advice (07) ==
LOC: 3BNU 15:01 → EMEROO 15:01 → 3BNU 20:49
PROVIDERS: ADMIT Internal Medicine Hematology & Oncology; ATTEND Registered Nurse

== ENCOUNTER 2017-12-05 16:56 | Observation (INO) ==
--- NOTE | 2017-12-05 17:04 | Emergency Department Note ---
Disposition Clinical Impression: Seizure Disposition: Admitted As Inpatient Condition: Fair Referrals: Jerry Almeida MD [Primary Care Provider] - Forms: ED Satisfaction Letter Time of Disposition: 21:19 Seizure HPI - General Stated Complaint: seizures Time Seen by Provider: 12/05/17 17:00 Nursing Notes Reviewed: Yes Vital Signs Reviewed: Yes - History of Present Illness HPI Narrative: 62-year-old male presents via EMS from insurance office/scene where he had reported seizure activity. Patient has a history of seizure disorder and is on Dilantin. 3 pills each morning, 1 pill each evening. Unknown dose per tablet. Per EMS, patient's mother informed him that he has breakthrough seizures at times of unusual stress. Patient is awake, alert, oriented to self and situation. He is not sure if he has missed any of his medications. He still appears postictal. PMH: Seizure disorder on Dilantin, ACS status post stent 1. ROS: Positive: As above Negative: Fever, chills, nausea, vomiting, chest pain, palpitations, dyspnea, diaphoresis, headache. - Related Data Home Medications Medication Instructions Recorded Confirmed Albuterol Sulfate [Proair Hfa] 2 puff IH QID PRN 04/19/16 08/08/17 Aspirin 81 mg PO DAILY 04/19/16 08/08/17 Clopidogrel [Plavix] 75 mg PO DAILY 04/19/16 08/08/17 Loratadine [Claritin] 10 mg PO DAILY 04/19/16 08/08/17 Metformin HCl [Glucophage] 1,000 mg PO BID 04/19/16 08/08/17 OxyCODONE Immed Rel [Roxicodone 20 20 mg PO TID PRN 04/19/16 08/08/17 MG] Phenytoin ER [Dilantin ER] 100 mg PO QAM 04/19/16 08/08/17 Trazodone HCl 100 mg PO HS 04/19/16 08/08/17 clonazePAM [Klonopin] 2 mg PO TID PRN 04/19/16 08/08/17 hydrOXYzine HCl [Hydroxyzine HCl] 25 mg PO TID PRN 04/19/16 08/08/17 Docusate [Colace] 100 mg PO DAILY PRN 05/02/17 08/08/17 Fluticasone Propionate Nasal 1 spray NS DAILY 05/02/17 08/08/17 [Flonase] Nitroglycerin 1 spray PO DAILY 05/02/17 08/08/17 [place]-3S/Dha/Epa/Fish Oil [Fish 1 cap PO DAILY 05/02/17 08/08/17 Oil [place]-3 Softgel] Pantoprazole Sodium [Protonix] 40 mg PO DAILY 05/02/17 08/08/17 Isosorbide MONOnitrate (24 HR) 60 mg PO DAILY 12/05/17 12/05/17 [Imdur] Phenytoin ER [Dilantin ER] 300 mg PO HS 12/05/17 12/05/17 Previous Rx's Medication Instructions Recorded Atorvastatin [Lipitor] 20 mg PO HS #30 tablet 07/14/16 Lisinopril [Zestril] 2.5 mg PO DAILY #30 tablet 07/14/16 Allergies Allergy/AdvReac Type Severity Reaction Status Date / Time levofloxacin [From Levaquin] Allergy Hives Verified 12/05/17 20:14 naproxen Allergy Hives Verified 12/05/17 20:14 All systems ED: reviewed and negative except as stated. Review of Systems: As Per HPI Past Medical History - Past Medical History Medical history: Reports: non-contributory, COPD, diabetes, other Surgical history: Reports: angioplasty/stent, appendectomy, cholecystectomy, herniorrhaphy, knee replacement Psychiatric history: Reports: anxiety, depression, panic disorder, other - Social History Smoking Status: Current every day smoker Smokeless Tobacco Status: No Alcohol use: Reports: none Drug use: Reports: none Physical Exam Vital Signs Reviewed General: Patient is alert, oriented, and in no acute distress. Head: atraumatic, normocephalic Eye: normal appearance, PERRL, EOMI, no scleral icterus, no conjunctival injection ENT: mucous membranes moist, normal external ear exam Neck: normal inspection, trachea midline, full ROM Chest: normal inspection, symmetric chest rise Respiratory: Good respiratory effort. Bilateral breath sounds are clear without wheezing, crackles, or rhonchi. Cardiovascular: Regular rate and rhythm. No clicks, rubs, gallops, or murmors. Normal heart sounds. Abdomen: Bowel sounds present normoactive x-4 quadrants. Abdomen is soft, nondistended, and nontender. No guarding or rebound. No organomegaly noted. Musculoskeletal: Spontaneously moving all extremities. Skin: warm, dry, intact. Neuro: ECS 15. Sensation light touch intact and equal bilateral extremities. Spontaneously moving all extremities. No focal neurologic deficit. Cranial nerves II through XII intact. Psych: Patient's affect is appropriate for situation. Course Course Narrative: Patient was seizure history. Presents with reported seizure activity. Currently, no family is bedside however he was with his brother at the time was in balance. On my initial evaluation, patient is neurologically intact, awake, protecting his airway, he still appears postictal. He is not sure feeding chest pain and he does have a cardiac history. Will perform EKG, Dilantin level , seizure precautions. 18:20 Patient re-evaluated. He is awake, alert, feels at his baseline, is requesting discharge home. He is currently managed by his PCP. He requests referrel to a neurologist. 18:50 Patient had a generalized tonic clonic seizure while in the emergency department. Eyes deviated to the right. Lasted appx 60 seconds. eyes deviated to the right. No emesis, tongue biting, or incontinence. 20:00 I discussed the patient with on-call neurology, Dr. Gloria. The patient's breakthrough seizure today as well as his recurrent seizure after recovering from the postictal phase in the ER as well as history of approximately one seizure per month for the past month. I discussed the the patient is on Plavix and, though he did not have any head injury today, I am concerned if he were to go home or to have another breakthrough seizure, hit his head, and he is high risk for a head bleed. Discussed the patient is currently managed by his primary care physician and will need neurology intervention and management for his seizures. Dr. Gloria agrees to see the patient has consult and admission to the hospitalist. He recommends we give 1 g Keppra IV and begin him on Keppra 500 mg by mouth twice a day. Patient given Keppra 1 g IV. We will begin Vital Signs Temperature 98.9 F 12/05/17 17:02 Pulse Rate 53 12/05/17 17:02 Respiratory Rate 18 12/05/17 17:02 Blood Pressure 129/69 12/05/17 17:02 O2 Sat by Pulse Oximetry 97 12/05/17 17:02 Temperature 98.9 F 12/05/17 17:02 Pulse Rate 53 12/05/17 17:02 Respiratory Rate 18 12/05/17 17:02 Blood Pressure 129/69 12/05/17 17:02 O2 Sat by Pulse Oximetry 97 12/05/17 17:19 Oxygen Delivery Oxygen Delivery Room Air Seizure - Lab Data Result diagrams: 12/05/17 18:58 12/05/17 17:10 Lab Results 12/05/17 12/05/17 Range/Units 17:10 18:58 WBC 12.7 H (4.3-11.1) K/mcL RBC 4.87 (4.19-5.50) M/mcL Hgb 15.2 (12.9-16.9) g/dL Hct 44.0 (37.5-50.1) % MCV 90.3 (83.0-100.0) fL MCH 31.2 (28.0-33.3) pg MCHC 34.5 (31.6-35.5) g/dL RDW 13.4 (11.5-14.5) % Plt Count 173 (140-400) K/mcL MPV 11.2 (9.4-12.4) fL Immature Gran % 0.8 (0-4) % Seg Neutrophils % 68.5 % Lymphocytes % 23.0 % Monocytes % 6.2 % Eosinophils % 0.9 % Basophils % 0.6 % Neutrophils # 8.7 (1.6-8.9) K/mcL Lymphocytes # 2.9 (0.6-4.6) K/mcL Monocytes # 0.8 (0.0-1.3) K/mcL Eosinophils # 0.1 (0.0-0.6) K/mcL Basophils # 0.1 (0.0-0.2) K/mcL Sodium 137 (136-145) mEq/L Potassium 3.6 (3.5-5.1) mEq/L Chloride 105 (98-107) mEq/L Carbon Dioxide 20 L (23-29) mEq/L BUN 15 (8-23) mg/dL Creatinine 0.72 (0.70-1.30) mg/dL Est GFR ( Amer) > 60 (> 60) Est GFR (Non-Af Amer) > 60 (> 60) BUN/Creatinine Ratio 21 (6-26) Glucose 147 H (70-105) mg/dL Calculated Osmolality 288 (280-300) Calcium 9.3 (8.6-10.3) mg/dL Magnesium 1.7 (1.6-2.6) mg/dL Phenytoin 17.2 (10.0-20.0) mcg/mL
--- NOTE | 2017-12-05 17:24 | Emergency Department Note ---
Disposition Clinical Impression: Generalized seizure Disposition: Admitted As Inpatient Condition: Fair Referrals: Jerry Almeida MD [Primary Care Provider] - Forms: ED Satisfaction Letter General Adult HPI - General Chief complaint: ED Seizure Stated complaint: seizures Time Seen by Provider: 12/05/17 17:00 Source: patient, EMS Limitations: no limitations - History of Present Illness Pain Scale: 0 - Related Data Home Medications Medication Instructions Recorded Confirmed Albuterol Sulfate [Proair Hfa] 2 puff IH QID PRN 04/19/16 12/05/17 Aspirin 81 mg PO DAILY 04/19/16 12/05/17 Clopidogrel [Plavix] 75 mg PO DAILY 04/19/16 12/05/17 Loratadine [Claritin] 10 mg PO DAILY 04/19/16 12/05/17 Metformin HCl [Glucophage] 1,000 mg PO BID 04/19/16 12/05/17 OxyCODONE Immed Rel [Roxicodone 20 20 mg PO TID PRN 04/19/16 12/05/17 MG] Phenytoin ER [Dilantin ER] 100 mg PO QAM 04/19/16 12/05/17 Trazodone HCl 100 mg PO HS 04/19/16 12/05/17 clonazePAM [Klonopin] 2 mg PO TID PRN 04/19/16 12/05/17 hydrOXYzine HCl [Hydroxyzine HCl] 25 mg PO TID PRN 04/19/16 12/05/17 Docusate [Colace] 100 mg PO DAILY PRN 05/02/17 12/05/17 Fluticasone Propionate Nasal 1 spray NS DAILY 05/02/17 12/05/17 [Flonase] Nitroglycerin 1 spray PO DAILY 05/02/17 12/05/17 [place]-3S/Dha/Epa/Fish Oil [Fish 1 cap PO DAILY 05/02/17 12/05/17 Oil [place]-3 Softgel] Pantoprazole Sodium [Protonix] 40 mg PO DAILY 05/02/17 12/05/17 Isosorbide MONOnitrate (24 HR) 60 mg PO DAILY 12/05/17 12/05/17 [Imdur] Phenytoin ER [Dilantin ER] 300 mg PO HS 12/05/17 12/05/17 Previous Rx's Medication Instructions Recorded Atorvastatin [Lipitor] 20 mg PO HS #30 tablet 07/14/16 Lisinopril [Zestril] 2.5 mg PO DAILY #30 tablet 07/14/16 Allergies Allergy/AdvReac Type Severity Reaction Status Date / Time levofloxacin [From Levaquin] Allergy Hives Verified 12/05/17 20:14 naproxen Allergy Hives Verified 12/05/17 20:14 Past Medical History - Past Medical History Medical history: Reports: non-contributory, COPD, diabetes, other Surgical history: Reports: angioplasty/stent, appendectomy, cholecystectomy, herniorrhaphy, knee replacement Psychiatric history: Reports: anxiety, depression, panic disorder, other - Social History Smoking Status: Current every day smoker Smokeless Tobacco Status: No Alcohol use: Reports: none Drug use: Reports: none Physical Exam - General Limitations: no limitations General appearance: alert, in no apparent distress Course Vital Signs Temperature 98.9 F 12/05/17 17:02 Pulse Rate 53 12/05/17 17:02 Respiratory Rate 18 12/05/17 17:02 Blood Pressure 129/69 12/05/17 17:02 O2 Sat by Pulse Oximetry 97 12/05/17 17:02 Temperature 98.9 F 12/05/17 17:02 Pulse Rate 85 12/05/17 20:52 Respiratory Rate 16 12/05/17 20:52 Blood Pressure 114/53 12/05/17 20:52 O2 Sat by Pulse Oximetry 96 12/05/17 20:52 Oxygen Delivery Oxygen Delivery Room Air Medical Decision Making - Lab Data Result diagrams: 12/05/17 18:58 12/05/17 17:10 Lab Results 12/05/17 12/05/17 Range/Units 17:10 18:58 WBC 12.7 H (4.3-11.1) K/mcL RBC 4.87 (4.19-5.50) M/mcL Hgb 15.2 (12.9-16.9) g/dL Hct 44.0 (37.5-50.1) % MCV 90.3 (83.0-100.0) fL MCH 31.2 (28.0-33.3) pg MCHC 34.5 (31.6-35.5) g/dL RDW 13.4 (11.5-14.5) % Plt Count 173 (140-400) K/mcL MPV 11.2 (9.4-12.4) fL Immature Gran % 0.8 (0-4) % Seg Neutrophils % 68.5 % Lymphocytes % 23.0 % Monocytes % 6.2 % Eosinophils % 0.9 % Basophils % 0.6 % Neutrophils # 8.7 (1.6-8.9) K/mcL Lymphocytes # 2.9 (0.6-4.6) K/mcL Monocytes # 0.8 (0.0-1.3) K/mcL Eosinophils # 0.1 (0.0-0.6) K/mcL Basophils # 0.1 (0.0-0.2) K/mcL Sodium 137 (136-145) mEq/L Potassium 3.6 (3.5-5.1) mEq/L Chloride 105 (98-107) mEq/L Carbon Dioxide 20 L (23-29) mEq/L BUN 15 (8-23) mg/dL Creatinine 0.72 (0.70-1.30) mg/dL Est GFR ( Amer) > 60 (> 60) Est GFR (Non-Af Amer) > 60 (> 60) BUN/Creatinine Ratio 21 (6-26) Glucose 147 H (70-105) mg/dL Calculated Osmolality 288 (280-300) Calcium 9.3 (8.6-10.3) mg/dL Magnesium 1.7 (1.6-2.6) mg/dL Phenytoin 17.2 (10.0-20.0) mcg/mL Attestation Statement - Attestation Attestation: I examined this patient and my medical decision-making was reviewed with the [facility]/PA/Advanced Practice Nurse/Resident Physician. I agree with the documented findings, disposition and treatment plan as described except to the extent set forth below. The patient does have a history of seizures, I did see him and immediately upon arrival and also spoke with paramedics. Stated he did not take his Dilantin this morning but typically only misses about one dose per month. He is currently speaking and not seizing at this time. Seizure was witnessed by the brother who is here with the patient. No biting of the tongue or blood in the mouth or incontinence. We are told no injury from after the seizure/no falls. The patient does take Plavix. He will have labs including dilantin level and further management based on results. 1723 I was called emergently into the room because the patient was seizing again and did have a generalized tonic-clonic seizure lasting for 60 seconds with some perioral cyanosis which resolved after the patient started breathing again after completion of procedure. He is currently post ictal period during the seizure the patient did have deviation of the eyes to the right. The patient will be given Ativan 1 mg IV, head CT, labs and admitted 1906 I did review the EKG showing a paced rhythm with a rate of 51 without acute ischemic change 2003
[2017-12-05 17:42] LABS: Magnesium 1.7 mg/dL (1.6-2.6); Phenytoin (Dilantin) 17.2 mcg/mL (10.0-20.0)
[2017-12-05] MEDS ORDERED: *HR* LORazepam 2 MG/ML VIAL IVP ONE (18:58)
[2017-12-05 19:10] LABS: Basophils # 0.1 K/mcL (0.0-0.2); Basophils % 0.6 %; Eosinophils # 0.1 K/mcL (0.0-0.6); Eosinophils % 0.9 %; Hemoglobin 15.2 g/dL (12.9-16.9); Immature Granulocytes % 0.8 % (0-4); Lymphocytes # 2.9 K/mcL (0.6-4.6); Mean Corpuscular HGB Conc 34.5 g/dL (31.6-35.5); Mean Corpuscular Hemoglobin 31.2 pg (28.0-33.3); Mean Corpuscular Volume 90.3 fL (83.0-100.0); Mean Platelet Volume 11.2 fL (9.4-12.4); Monocytes # 0.8 K/mcL (0.0-1.3); Monocytes % 6.2 %; Neutrophils # 8.7 K/mcL (1.6-8.9); Platelet Count 173 K/mcL (140-400); Red Blood Count 4.87 M/mcL (4.19-5.50); Red Cell Distribution Width 13.4 % (11.5-14.5); Segmented Neutrophils % 68.5 %
[2017-12-05 19:20] LABS: BUN/Creatinine Ratio 21 (6-26); Blood Urea Nitrogen 15 mg/dL (8-23); Calcium 9.3 mg/dL (8.6-10.3); Carbon Dioxide 20 mEq/L (23-29); Chloride 105 mEq/L (98-107); Glucose 147 mg/dL (70-105); Osmolality,Calculated 288 (280-300); Potassium 3.6 mEq/L (3.5-5.1); Sodium 137 mEq/L (136-145); eGFR For African Americans > 60 (> 60); eGFR For Non-African Americans > 60 (> 60)
[2017-12-05] MEDS ORDERED: levETIRAcetam 1,000 MG in 0.9 % Sodium Chloride 100 ML IVPB ONE (19:59)
[2017-12-05] MEDS ORDERED: Naloxone 0.4 MG/ML INJ IVP PRN (22:56)
--- NOTE | 2017-12-05 23:22 | Internal Med History&Physical ---
<Carla Payton - Last Filed: 12/05/17 23:05> Date of Encounter: 12/05/17 Time of Encounter: 22:50 Internal Medicine - H&P: HPI Chief complaint: Seizure Admitted From: Emergency Dept Plans for Post Hospital Care: Home History of present illness: Mr. Najera is a 62 year old male with past medical history of seizures, CADx1 stent, presented to [facility] ED via EMS after having a seizure at an insurance office. Patient reported that his brother caught him before he hit the ground so he did not hit his head. He stated that his last seizure was 3 weeks ago when he came to [facility] ED and was discharged home. He has a seizure roughly every 2 months-once a week. He does not believe anything in particular increases his seizure activity. He stated he has been compliant with his Dilantin which he takes for his seizures and has not missed a dose. His neurologist is located in [place] however he has not seen her in quite some time since it is a far drive so his family physician Dr. Almeida prescribes his Dilantin. Upon review of medical records he used to see Dr. Varma but he was discharged from the practice. His seizures started back in 2003 after a traumatic fall from [facility] that occurred in 1999. He denies fever, chills, chest pain, shortness of breath, confusion, headache, change in vision, nausea, vomiting, abdominal pain, incontinence of urine or stool, recent sickness. He is a current smoker of 1 pack a day, denies alcohol and illicit drug use. Of note, upon review of last hospitalization for seizures 02/17/2017 Dr. Gloria had been consulted and had recommended that the patient be slowly tapered off Dilantin and continued on Trileptal and Keppra. He is a full code. In the ED, he was reportedly postictal. He had another generalized tonic colonic seizure in the ED that lasted approximately 60 seconds with no emesis, tongue biting, incontinence. His eyes were deviated to the right. He was given Ativan. Neurology was consulted and Dr. Gloria recommended starting patient on Keppra and stated he would see the patient in the morning. Past Med Surg Social Fam HX - Past Medical History Attestation: Yes The following information was validated with the patient. Source: patient Medical history: COPD, coronary artery disease, diabetes, seizures, other Additional medical history: unspecified heart problem Psychiatric history: anxiety, depression, panic disorder, other - Past Surgical History Surgical History: angioplasty/stent, appendectomy, cholecystectomy, herniorrhaphy, knee replacement Additional surgical history: shoulder surgery, 2 cardiac stent, loop recorder - Social History Smoking Status: Current every day smoker Smokeless Tobacco Status: No Alcohol use: none Drug use: none - Family History Sister Adopted: No Living Status: Hx Family Cardiac Disorders: Yes (SISTER WITH PACEMAKER & VALVE) Hx Family Respiratory Disorders: Yes (SISTER WITH COPD) Hx Family Cancer: Yes (SISTER OF BRAIN CANCER) Hx Family GI Disorders: (UNKNOWN) Hx Family Endocrine Disorder: Yes (SISTER WITH DM) Internal Medicine - H&P: Meds Albuterol Sulfate [Proair Hfa] 2 puff IH QID PRN 04/19/16 [History] Aspirin 81 mg PO DAILY 04/19/16 [History] Clopidogrel [Plavix] 75 mg PO DAILY 04/19/16 [History] Loratadine [Claritin] 10 mg PO DAILY 04/19/16 [History] Metformin HCl [Glucophage] 1,000 mg PO BID 04/19/16 [History] OxyCODONE Immed Rel [Roxicodone 20 MG] 20 mg PO TID PRN 04/19/16 [History] Phenytoin ER [Dilantin ER] 100 mg PO QAM 04/19/16 [History] Trazodone HCl 100 mg PO HS 04/19/16 [History] clonazePAM [Klonopin] 2 mg PO TID PRN 04/19/16 [History] hydrOXYzine HCl [Hydroxyzine HCl] 25 mg PO TID PRN 04/19/16 [History] Atorvastatin [Lipitor] 20 mg PO HS #30 tablet 07/14/16 [Rx] Lisinopril [Zestril] 2.5 mg PO DAILY #30 tablet 07/14/16 [Rx] Docusate [Colace] 100 mg PO DAILY PRN 05/02/17 [History] Fluticasone Propionate Nasal [Flonase] 1 spray NS DAILY 05/02/17 [History] Nitroglycerin 1 spray PO DAILY 05/02/17 [History] [place]-3S/Dha/Epa/Fish Oil [Fish Oil [place]-3 Softgel] 1 cap PO DAILY 05/02/17 [ History] Pantoprazole Sodium [Protonix] 40 mg PO DAILY 05/02/17 [History] Isosorbide MONOnitrate (24 HR) [Imdur] 60 mg PO DAILY 12/05/17 [History] Phenytoin ER [Dilantin ER] 300 mg PO HS 12/05/17 [History] 3 Allergy/AdvReac Type Severity Reaction Status Date / Time levofloxacin [From Levaquin] Allergy Hives Verified 12/05/17 20:14 naproxen Allergy Hives Verified 12/05/17 20:14 All Systems PM: A 10-system review of systems was performed and is negative for pertinent findings except as documented above in the HPI. - Constitutional Constitutional: no chills, no fever(s), no weakness - EENT Eyes: no change in vision - Cardiovascular Cardiovascular ROS IM: no chest pain, no diaphoresis, no dyspnea, no palpitations (`) - Respiratory Respiratory: no cough, no dyspnea, no wheezing - Gastrointestinal Gastrointestinal: no abdominal pain, no diarrhea, no fecal incontinence, no nausea, no vomiting - Genitourinary Genitourinary ROS male: no urinary incontinence - Integumentary Integumentary IM: no erythema, no new lesions - Neurological Neurological ROS: no confusion, no dizziness, no headache(s), no loss of vision , no vertigo, no weakness - Psychiatric Psychiatric: no confusion - Hematologic/Lymphatic Hematologic/Lymphatic: no easy bleeding - Constitutional Vitals: Temp Pulse Resp BP Pulse Ox 98.9 F 47 18 125/70 96 12/05/17 17:02 12/05/17 22:28 12/05/17 22:28 12/05/17 22:28 12/05/17 22:28 General appearance: Present: A&O X 3, pleasant, no acute distress - Head Head exam: Present: atraumatic, normocephalic Internal Med - H&P Results - Labs CBC & Chem 7: 12/05/17 18:58 12/05/17 17:10 - Assessment and plan (1) Seizure Current Visit: No Status: Acute Assessment and plan: Breakthrough seizure today despite reported compliance taking Dilantin. No tongue biting, incontinence post seizure. His neurologist is located in [place] however he has not seen her for a long time due to far drive. He is a former patient of Dr. Varma however he was discharged from practice. His family physician Dr. Almeida prescribes is Dilantin. He has a seizure about every 2 months-once a week. He does not know of anything that brings on his seizures. -last hospitalization for seizures 02/17/2017 Dr. Gloria had been consulted and had recommended that the patient be slowly tapered off Dilantin and continued on Trileptal and Keppra. -Head CT negative for acute hemorrhage -phenytoin 17.2 therapeutic Plan -Dr. Gloria of neurology consulted and will evaluate patient in a.m. -continue Keppra per neurology recommendations -continue seizure precautions -drug screen pending -NPO (2) Leukocytosis Current Visit: No Status: Acute Assessment and plan: Minimally elevated white blood cell count likely secondary to seizure. WBC 12.7, afebrile -patient has no obvious source of infection and denies fever, chills, shortness of breath, cough, abdominal pain, dysuria. -No indication for antibiotics at this time. Will continue to monitor WBC Qualifiers: Leukocytosis type: unspecified Qualified Code(s): D72.829 - Elevated white blood cell count, unspecified (3) CAD (coronary artery disease) Current Visit: No Status: Chronic Assessment and plan: History of CAD with one stent placed in 07/2016. -Continue home medications of Plavix, aspirin, Lipitor, lisinopril, Imdur Qualifiers: Coronary Disease-Associated Artery/Lesion type: [place] artery [place] vs. transplanted heart: [place] heart Associated angina: with unstable angina Qualified Code(s): I25.110 - Atherosclerotic heart disease of [place] coronary artery with unstable angina pectoris (4) Diabetes mellitus Current Visit: No Status: Chronic Assessment and plan: He reported that he no longer has diabetes according to his PCP since he has lost weight. And he no longer takes metformin. 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 He was counseled on smoking cessation however he is not interested in quitting. - Time Spent With Patient Total time spent is greater than 50% in coordination of care (as documented) at patient's floor/unit and/or counseling patient: <Maude Gilbert - Last Filed: 12/06/17 00:34> Date of Encounter: 12/06/17 Internal Medicine - H&P: HPI History of present illness: Mr. Najera is a 62 year old male All Systems PM: A 10-system review of systems was performed and is negative for pertinent findings except as documented above in the HPI. - Constitutional Vitals: Temp Pulse Resp BP Pulse Ox 98.9 F 44 18 125/70 96 12/05/17 17:02 12/05/17 22:31 12/05/17 22:28 12/05/17 22:28 12/05/17 22:28 Internal Med - H&P Results - Labs CBC & Chem 7: 12/05/17 18:58 12/05/17 17:10 - Attending Attestation Eye exam and patient personally. Reviewed the resident's clinical note. 62 year old patient with recurrent seizure got admitted for seizure episode today at insurance office. Patient supposed to take Keppra and Trileptal with tapering of Dilantin as per neurologist recommendation but patient is still taking Dilantin as following PCP instruction. Patient does not have any neurological focal deficit, CT brain with no acute finding. Patient has mild leukocytosis-that could be reactionary response to acute episode but will also rule out underlying infection therefore chest x-ray to rule out possible aspiration pneumonia, urine analysis ordered. Neurologist was consulted by ER physician who advise loading dose Keppra 1 g and 500 mg every 12 hours afterword. Urine drug screen pending. Sliding scale insulin coverage - Assessment and plan (1) Diabetes mellitus Current Visit: No Status: Chronic Qualifiers: Diabetes mellitus type: type 2 Diabetes mellitus long-term insulin use: without long-term use Diabetes mellitus complication status: with unspecified complications Qualified Code(s): E11.8 - Type 2 diabetes mellitus with unspecified complications (2) Seizure Current Visit: No Status: Acute (3) DVT prophylaxis Current Visit: No Status: Acute (4) Leukocytosis Current Visit: No Status: Acute Qualifiers: Leukocytosis type: unspecified Qualified Code(s): D72.829 - Elevated white blood cell count, unspecified (5) CAD (coronary artery disease) Current Visit: No Status: Chronic Qualifiers: Coronary Disease-Associated Artery/Lesion type: [place] artery [place] vs. transplanted heart: [place] heart Associated angina: with unstable angina Qualified Code(s): I25.110 - Atherosclerotic heart disease of [place] coronary artery with unstable angina pectoris (6) Tobacco abuse Current Visit: No Status: Chronic - Time Spent With Patient Total time spent is greater than 50% in coordination of care (as documented) at patient's floor/unit and/or counseling patient:
[2017-12-05] MEDS ORDERED: *HR* Dextrose 50 % in Water (Syg) 50 ML SYRINGE IVP PRN (23:55)
[2017-12-05] MEDS ORDERED: Dextrose Gel 15 GM/37.5 ML TUBE PO PRN ×2 (23:55)
[2017-12-05] MEDS ORDERED: D5% in Water 1,000 ML IVC PRN (23:55)
[2017-12-06 00:41] LABS: Hematocrit 39.7 % (37.5-50.1); Hemoglobin 13.7 g/dL (12.9-16.9); Mean Corpuscular HGB Conc 34.5 g/dL (31.6-35.5); Mean Corpuscular Hemoglobin 30.6 pg (28.0-33.3); Mean Corpuscular Volume 88.8 fL (83.0-100.0); Mean Platelet Volume 10.3 fL (9.4-12.4); Platelet Count 175 K/mcL (140-400); Red Blood Count 4.47 M/mcL (4.19-5.50); Red Cell Distribution Width 13.2 % (11.5-14.5)
[2017-12-06 00:59] LABS: BUN/Creatinine Ratio 18 (6-26); Blood Urea Nitrogen 12 mg/dL (8-23); Carbon Dioxide 24 mEq/L (23-29); Chloride 106 mEq/L (98-107); Potassium 3.9 mEq/L (3.5-5.1); Sodium 137 mEq/L (136-145); eGFR For African Americans > 60 (> 60); eGFR For Non-African Americans > 60 (> 60)
[2017-12-06 01:00] LABS: Calcium 8.9 mg/dL (8.6-10.3); Glucose 88 mg/dL (70-105); Magnesium 1.7 mg/dL (1.6-2.6); Osmolality,Calculated 283 (280-300)
[2017-12-06] MEDS: Insulin LISPRO 300 UNITS/3 ML VIAL SQ SCH ×4 (04:13→16:57)
[2017-12-06 05:57] LABS: Bilirubin,Urine Negative (Negative); Blood,Urine Small (Negative); Clarity,Urine Cloudy (Clear); Color,Urine Yellow (Yellow); Glucose,Urine (UA) Normal (Normal); Ketones,Urine Negative (Negative); Leukocyte Esterase,Urine Negative (Negative); Nitrite,Urine Negative (Negative); Protein,Urine Negative (Neg-Trace); Specific Gravity,Urine 1.026 (1.010-1.025); Urobilinogen,Urine Normal (Normal)
[2017-12-06 06:00] LABS: Hyaline Casts,Urine None Seen per lpf (None-Few); RBC,Urine 0-3 per hpf (0-3)
[2017-12-06] MEDS ORDERED: levETIRAcetam 250 MG TABLET PO SCH (06:00)
[2017-12-06 06:12] LABS: Amphetamine Screen,Urine Negative ng/mL (Cutoff=1000); Barbiturate Screen,Urine Negative ng/mL (Cutoff=200); Benzodiazepines Screen,Urine Negative ng/mL (Cutoff=200); Cannabinoid Screen,Urine Negative ng/mL (Cutoff = 50); Cocaine Screen,Urine Negative ng/mL (Cutoff= 300); Opiate Screen,Urine Negative ng/mL (Cutoff=300); Phencyclidine Screen,Urine Negative ng/mL (Cutoff=25)
[2017-12-06 06:15] LABS: Bacteria,Urine Moderate per hpf (None-Few); Squamous Epithelial Cell,Urine Few per lpf (None-Few)
[2017-12-06 06:43] LABS: Estimated Average Glucose 111 mg/dl; Hemoglobin A1C 5.5 %
[2017-12-06] MEDS: Isosorbide MONOnitrate (24 HR) 60 MG TAB.ER.24H PO SCH (08:47)
[2017-12-06] MEDS: Aspirin 81 MG TAB.CHEW PO SCH (08:48)
--- NOTE | 2017-12-06 09:34 | Internal Med Progress Note ---
Date of Encounter: 12/06/17 Time of Encounter: 11:00 - Assessment and plan (1) Seizure Current Visit: No Status: Acute Assessment and plan: Breakthrough seizure today despite reported compliance taking Dilantin. Neurology consulted and appreciate recommendations (2) CAD (coronary artery disease) Current Visit: No Status: Chronic Assessment and plan: History of CAD with one stent placed in 07/2016. Patient reported chest pain earlier today and was found to be bradycardic Cardiology consulted and appreciate recommendations Continue home medications of Plavix, aspirin, Lipitor, lisinopril, Imdur Qualifiers: Coronary Disease-Associated Artery/Lesion type: [place] artery [place] vs. 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 He was counseled on smoking cessation however he is not interested in quitting. (5) DVT prophylaxis Current Visit: No Status: Acute Assessment and plan: Heparin SQ - Time Spent With Patient Total time spent is greater than 50% in coordination of care (as documented) at patient's floor/unit and/or counseling patient: - Subjective Interval history: Patient presented with breakthrough seizures and neurology consulted for recommendations Patient also reported chest pain this morning and was found to be bradycardic therefore cardiology was consulted. - Constitutional Vitals: Temp Pulse Resp BP Pulse Ox 98.5 F 41 16 114/66 98 12/06/17 07:30 12/06/17 09:12 12/06/17 09:12 12/06/17 09:12 12/06/17 09:12 General appearance: Present: A&O X 3, pleasant, no acute distress - Respiratory Respiratory exam: Present: CTAB. Absent: accessory muscle use, rales, rhonchi, wheezes - Cardiovascular Cardiovascular exam: Present: RRR, +S1, +S2. Absent: diastolic murmur, gallop, rubs, systolic murmur Internal Medicine: Result - Labs CBC & Chem 7: 12/06/17 00:29 12/06/17 00:29 Labs: Short CBC 12/06/17 Range/Units 00:29 WBC 12.1 H (4.3-11.1) K/mcL Hgb 13.7 D (12.9-16.9) g/dL Hct 39.7 (37.5-50.1) % Plt Count 175 (140-400) K/mcL BMP 12/06/17 00:29 Sodium 137 Potassium 3.9 Chloride 106 Carbon Dioxide 24 BUN 12 Creatinine 0.65 L Glucose 88 Calcium 8.9 Urine 12/06/17 Range/Units 05:45 Urine Color Yellow (Yellow) Urine Clarity Cloudy A (Clear) Urine pH 6.0 (5.0-8.0) pH Units Ur Specific [place] 1.026 H (1.010-1.025) Urine Protein Negative (Neg-Trace) mg/dL Urine Glucose (UA) Normal (Normal) mg/dL - Impressions Impressions Chest X-Ray 12/06/17 09:08 IMPRESSION: Patchy opacity left lung base which may reflect atelectasis or pneumonia in the appropriate clinical setting. D/ / Marilyn Flannery MD / Marilyn Flannery MD Interpreting Provider: Marilyn Flannery MD - VTE Documentation of Mechanical Device: Intermittent pneumatic compression device Consult Discharge Plan - Plan Referrals: Jerry Almeida MD [Primary Care Provider] -
--- NOTE | 2017-12-06 14:08 | Neurology - Consult Note ---
Date of Encounter: 12/06/17 Time of Encounter: 14:02 Assessment and Plan (1) Breakthrough seizure Current Visit: No Status: Acute This patient who has a long history of traumatic epilepsy continued to have these breakthrough seizures despite being on multiple medication there is significant noncompliant component in his condition. Despite that he is been taking Dilantin on a regular basis but he keep having these breakthrough seizures it is not clear that why he was not reevaluated by neurology if he is still having that many seizures. As Keppra was discontinued earlier because of some unknown side effects or for some other reason we he is not able to give any detailed information I have suggested that we should discontinue Keppra as it was just started in the emergency room. Instead will start him on Vimpat 100 mg twice a day. Hopefully that get a better control for his seizures At the same time continue him on Dilantin current dose she is taking 100 in the morning and 300 in the evening We will check his level to keep it therapeutic As he is a history of multiple seizures and multiple testing in the past do not think that doing an EEG now would help any in the diagnosis as he seems to be back to his baseline, in fact anything could be helpful would be a long-term 48 hours ambulatory EEG that may help to determine that indeed these true epileptic seizures are not that can be arranged later as an outpatient. Suggest continue on his other medication may sure he does not have any underlying infection or any metabolic disturbances that may be causing or contributing to his seizures If remained stable he could be discharged to home On current dose of his Dilantin And on Vimpat 100 mg twice a day An follow-up with neurology in 3-4 weeks Note: pt should also be on seizure precautions: Patient was asked not to drive until seizure-free for 6 months. Patient was asked not to work in close proximity of machines with moving parts, not to swim unsupervised, not to take tub baths or showers with water accumulation, and not to work at high places. (2) Seizure disorder Current Visit: No Status: Chronic History of Present Illness HPI: Mr. Najera is a 62 year old male with past medical history of seizures, CADx1 stent, admitted to [facility] ED via EMS after he was found t have a seizure at an insurance office. as per report his brother caught him before he hit the ground so he did not hit his head. He stated that his last seizure was 3 weeks ago when he came to [facility] ED and was discharged home. He has a seizure about every month some times 2 per week. He does not believe anything in particular increases his seizure activity. He stated he has been compliant with his Dilantin which he takes for his seizures and has not missed a dose. His neurologist is located in [place] however he has not seen her in quite some time since it is a far drive so his family physician Dr. Almeida prescribes his Dilantin. ( He used to see Dr. Varma but he was discharged from the practice) His seizures started back in 2003 after a traumatic fall from [facility] that occurred in 1999. he was last seen in Hospital or seizures 02/17/2017, was seen by me and recommended that the patient be slowly tapered off Dilantin and continued on Trileptal and Keppra. as he was on 3 different AEDS and continued to have these seizures, today he mentioned that he was restarted on Dilantin some time ago and Keppra was discontinued because of some side effects or interaction with the medication though he is not able to recall that we will stop Keppra and how long ago it was stopped at the same time he was not able to give much detailed information about the potential side effects or interaction from it. At the same time is also not sure that he is taking Trileptal or not but he does remember taking Dilantin on a regular basis he has not been seen by neurology for quite some time In the ED, he was reportedly postictal. He had another generalized tonic colonic seizure in the ED that lasted approximately 60 seconds with no vomiting , tongue biting or incontinence. His eyes were deviated to the right. He was given Ativan. Neurology was consulted Now he seems to be back to his baseline he is alert awake and oriented denies any focal motor weakness not able to give much detailed information about his medications though he did mention that he get quite frequent seizures and not very well controlled and he continued to take Dilantin. Past Med Surg Social Fam HX - Past Medical History Medical history: COPD, coronary artery disease, diabetes, seizures, other Additional medical history: unspecified heart problem Psychiatric history: anxiety, depression, panic disorder, other - Past Surgical History Surgical History: angioplasty/stent, appendectomy, cholecystectomy, herniorrhaphy, knee replacement Additional surgical history: shoulder surgery, 2 cardiac stent, loop recorder - Social History Smoking Status: Current every day smoker Smokeless Tobacco Status: No Alcohol use: none Drug use: none - Family History Sister History Unknown: Yes Adopted: No Living Status: Hx Family Cardiac Disorders: Yes (SISTER WITH PACEMAKER & VALVE) Hx Family Respiratory Disorders: Yes (SISTER WITH COPD) Hx Family Cancer: Yes (SISTER OF BRAIN CANCER) Hx Family GI Disorders: (UNKNOWN) Hx Family Endocrine Disorder: Yes (SISTER WITH DM) Medications and Allergies Albuterol Sulfate [Proair Hfa] 2 puff IH QID PRN 04/19/16 [History] Aspirin 81 mg PO DAILY 04/19/16 [History] Clopidogrel [Plavix] 75 mg PO DAILY 04/19/16 [History] Loratadine [Claritin] 10 mg PO DAILY 04/19/16 [History] Metformin HCl [Glucophage] 1,000 mg PO BID 04/19/16 [History] OxyCODONE Immed Rel [Roxicodone 20 MG] 20 mg PO TID PRN 04/19/16 [History] Phenytoin ER [Dilantin ER] 100 mg PO QAM 04/19/16 [History] Trazodone HCl 100 mg PO HS 04/19/16 [History] clonazePAM [Klonopin] 2 mg PO TID PRN 04/19/16 [History] hydrOXYzine HCl [Hydroxyzine HCl] 25 mg PO TID PRN 04/19/16 [History] Atorvastatin [Lipitor] 20 mg PO HS #30 tablet 07/14/16 [Rx] Lisinopril [Zestril] 2.5 mg PO DAILY #30 tablet 07/14/16 [Rx] Docusate [Colace] 100 mg PO DAILY PRN 05/02/17 [History] Fluticasone Propionate Nasal [Flonase] 1 spray NS DAILY 05/02/17 [History] Nitroglycerin 1 spray PO DAILY 05/02/17 [History] Parmele-3S/Dha/Epa/Fish Oil [Fish Oil Parmele-3 Softgel] 1 cap PO DAILY 05/02/17 [ History] Pantoprazole Sodium [Protonix] 40 mg PO DAILY 05/02/17 [History] Isosorbide MONOnitrate (24 HR) [Imdur] 60 mg PO DAILY 12/05/17 [History] Phenytoin ER [Dilantin ER] 300 mg PO HS 12/05/17 [History] 3 Allergy/AdvReac Type Severity Reaction Status Date / Time levofloxacin [From Levaquin] Allergy Hives Verified 12/05/17 20:14 naproxen Allergy Hives Verified 12/05/17 20:14 All Systems: The remainder of the systems were reviewed and are negative Physical Examination - Vital Signs Vital Signs: Initial Vital Signs Temp Pulse Resp BP Pulse Ox 98.9 F 53 18 129/69 97 12/05/17 17:02 12/05/17 17:02 12/05/17 17:02 12/05/17 17:02 12/05/17 17:02 - Exam Exam: GENERAL: Comfortable in no acute distress HEENT: Normal LUNGS: CTA HEART: RRR, S1 S2 Audible, no murmur EXTREMITIES: No Pedal edema. DETAILED NEUROLOGICAL EXAMINATION: MENTAL STATUS: Oriented to person, place, date and situation. Memory: knows the President, Aware of recent events Recent Memory Intact Cranial Nerve Examination: CN - II: Visual Acuity, Field of Vision Normal, Fundus examination: No disk edema, Pupils- size shape reaction to light and accommodation: All normal. CN III, IV, : External ocular movements were intact, Pupils were reactive, Nodrooping of the eyelids CN V: Sensation over the face to light touch and pinprick all normal. Corneal reflexes not tested, jaw jerk normal. CN VII: No facial asymmetry, no flattening of nasolabial folds, no difficulty in closing the eyes, no loss of forehead wrinkles, no difficulty in eye-closure, frowning raising eyebrows. CNVIII: No significant hearing loss CN IX, X: Uvula centralized not deviated, Gag reflex: Not tested CN X1: Sternocleidomastoid, trapezius, normal or evidence of any weakness. CN X11: No Dysarthria, no wasting or fibrilation f tongue muscles, no deviation, tongue muscle strength normal. Motor examination: No hypertrophy, tone was normal, power grade 0-5 Upper limbs Proximal- No difficulty in lifting the arms above the head. Distal- No weakness in distal muscles On formal testing 5/5 all over Lower limbs On formal testing 5/5 all over Coordination: [id number] normal. Target pursuit normal finger tapping normal, Rapid alternating moment of wrist normal Sensory system: Superficial sensations- Touch normal. Pain- Pinprick, Temperature all normal, Deep sensation normal, Joint position sense normal. Cortical sensation, Tactile discrimination, localization and extinction all normal. Deep tendon reflexes. Symmetrical bilateral, No evidence of Babinski. No sign of meningeal irritation Gait Examination: Deferred Results - Laboratory Findings CBC and BMP: 12/06/17 00:29 12/06/17 00:29 Abnormal lab findings: Abnormal lab results WBC 12.1 K/mcL (4.3-11.1) H 12/06/17 00:29 Creatinine 0.65 mg/dL (0.70-1.30) L 12/06/17 00:29 Urine Clarity Cloudy (Clear) A 12/06/17 05:45 Ur Specific [place] 1.026 (1.010-1.025) H 12/06/17 05:45 Urine Blood Small (Negative) H 12/06/17 05:45 Urine Microscopic WBC 3-5 per hpf (0-3) H 12/06/17 05:45 Urine Bacteria Moderate per hpf (None-Few) H 12/06/17 05:45 Consult Discharge Plan - Plan Referrals: Jerry Almeida MD [Primary Care Provider] -
[2017-12-06] MEDS: *HR* OxyCODONE Immed Rel 5 MG TABLET PO PRN ×2 (15:34→21:36)
[2017-12-07] MEDS: Insulin LISPRO 300 UNITS/3 ML VIAL SQ SCH ×4 (05:36→16:48)
[2017-12-07] MEDS: Isosorbide MONOnitrate (24 HR) 60 MG TAB.ER.24H PO SCH (08:39)
[2017-12-07] MEDS: Aspirin 81 MG TAB.CHEW PO SCH (08:40)
[2017-12-07] MEDS: *HR* OxyCODONE Immed Rel 5 MG TABLET PO PRN ×2 (08:40→20:15)
--- NOTE | 2017-12-07 09:39 | Internal Med Progress Note ---
Date of Encounter: 12/07/17 Time of Encounter: 11:00 - Assessment and plan (1) Bradycardia with 41-50 beats per minute Current Visit: Yes Status: Acute Assessment and plan: Patient with chest pain and bradycardia with concerns for worsening RCA lesion Cardiology consulted with recommendations for left heart catheterization on (2) Seizure Current Visit: No Status: Acute Assessment and plan: Patient has been seizure-free since medications adjusted by neurology. Patient's Keppra has been discontinued and patient started on Dilantin 300 mg p.m. and the 100 mg a.m. in addition to lacosamide 100 mg twice daily (3) CAD (coronary artery disease) Current Visit: No Status: Chronic Assessment and plan: History of CAD with one stent placed in 07/2016. Patient reported chest pain earlier today and was found to be bradycardic Cardiology consulted and appreciate recommendations Continue home medications of Plavix, aspirin, Lipitor, lisinopril, Imdur Qualifiers: Coronary Disease-Associated Artery/Lesion type: [place] artery [place] vs. transplanted heart: [place] heart Associated angina: with unstable angina Qualified Code(s): I25.110 - Atherosclerotic heart disease of [place] coronary artery with unstable angina pectoris (4) Diabetes mellitus Current Visit: No Status: Chronic Assessment and plan: Coverage with sliding-scale insulin Qualifiers: Diabetes mellitus type: type 2 Diabetes mellitus detention insulin use: without detention use Diabetes mellitus complication status: with unspecified complications Qualified Code(s): E11.8 - Type 2 diabetes mellitus with unspecified complications (5) Tobacco abuse Current Visit: No Status: Chronic Assessment and plan: Current smoker of one pack per day. He was counseled on smoking cessation however he is not interested in quitting. (6) DVT prophylaxis Current Visit: No Status: Acute Assessment and plan: Heparin SQ - Time Spent With Patient Total time spent is greater than 50% in coordination of care (as documented) at patient's floor/unit and/or counseling patient: - Subjective Interval history: Patient has been seizure-free this admission after medications adjusted per neurology recommendations Patient also reported chest pain and there are concerns for worsening RCA lesion with bradycardia therefore [facility] scheduled for 12/08/17 - Constitutional Vitals: Temp Pulse Resp BP Pulse Ox 98.5 F 44 18 131/76 96 12/07/17 07:54 12/07/17 08:44 12/07/17 07:54 12/07/17 07:54 12/07/17 07:54 General appearance: Present: A&O X 3, pleasant, no acute distress - Respiratory Respiratory exam: Present: CTAB. Absent: accessory muscle use, rales, rhonchi, wheezes - Cardiovascular Cardiovascular exam: Present: bradycardia Internal Medicine: Result - Labs CBC & Chem 7: 12/07/17 10:25 12/07/17 10:25 Labs: Cardiac Enzymes 12/06/17 12/06/17 Range/Units 09:21 13:14 Troponin I 0.04 H* 0.03 (< 0.04) ng/mL - VTE Documentation of Mechanical Device: Intermittent pneumatic compression device Consult Discharge Plan - Plan Referrals: Jerry Almeida MD [Primary Care Provider] -
[2017-12-07 10:49] LABS: Basophils # 0.1 K/mcL (0.0-0.2); Basophils % 0.5 %; Eosinophils # 0.1 K/mcL (0.0-0.6); Eosinophils % 0.9 %; Hematocrit 42.7 % (37.5-50.1); Hemoglobin 14.5 g/dL (12.9-16.9); Immature Granulocytes % 0.8 % (0-4); Lymphocytes # 2.9 K/mcL (0.6-4.6); Mean Corpuscular Hemoglobin 30.1 pg (28.0-33.3); Mean Corpuscular Volume 88.8 fL (83.0-100.0); Mean Platelet Volume 10.7 fL (9.4-12.4); Monocytes # 0.6 K/mcL (0.0-1.3); Monocytes % 5.4 %; Neutrophils # 7.3 K/mcL (1.6-8.9); Platelet Count 178 K/mcL (140-400); Red Blood Count 4.81 M/mcL (4.19-5.50); Red Cell Distribution Width 13.2 % (11.5-14.5); Segmented Neutrophils % 66.4 %
[2017-12-07 11:09] LABS: BUN/Creatinine Ratio 17 (6-26); Blood Urea Nitrogen 13 mg/dL (8-23); Calcium 9.2 mg/dL (8.6-10.3); Carbon Dioxide 28 mEq/L (23-29); Chloride 103 mEq/L (98-107); Glucose 133 mg/dL (70-105); Osmolality,Calculated 286 (280-300); Potassium 4.1 mEq/L (3.5-5.1); Sodium 137 mEq/L (136-145); eGFR For African Americans > 60 (> 60); eGFR For Non-African Americans > 60 (> 60)
--- NOTE | 2017-12-07 13:18 | Neurology Progress Note ---
Date of Encounter: 12/07/17 Time of Encounter: 09:50 Assessment and Plan (1) Breakthrough seizure Current Visit: No Status: Acute Patient with a history of seizure disorder with breakthrough seizures now started on Vimpat because he was on Keppra in the past and not able to tolerated doing well no side effects reported suggest to continue on the current dose of Vimpat which is 100 mg twice a day. He was also on Dilantin and is been taking it on a regular basis suggest to continue on his home dose of Dilantin 100 in the morning and 300 at night. From neurology standpoint patient is a stable continue same medication follow cardiology recommendations regarding bradycardia. (2) Seizure disorder Current Visit: No Status: Chronic Subjective Interval history: Patient is a stable from neurology standpoint no further seizures he is been on vimpat not started yesterday because Keppra was discontinued as he was in the past and has some side effects he was not able to recall so it was discontinued CT scan of the head is been negative. He was also found to be bradycardic cardiology services are consulted and is getting workup. He did acknowledges that he is been on Dilantin on a regular basis but not on any other seizure medication Objective - Constitutional Vitals: Temp Pulse Resp BP Pulse Ox 98.4 F 43 16 106/69 95 12/07/17 11:00 12/07/17 11:00 12/07/17 11:00 12/07/17 11:12/07/17 11:00 - Neurological Exam Motor Examination: Present: grossly full strength in all extremities Sensation intact: Present: intact Reflex and gait examination: intact Reflexes: Biceps: 1+, Triceps: 1+, Brachioradialis: 1+, Patella: 1+, Achilles: 1 + Mental Status Examination: Present: awake, alert, oriented to person, oriented to place, follows commands appropriately, answers questions appropriately Cranial nerve examination: Present: PERRL, EOMI, visual velazquez intact, no facial asymmetry is present, no dysarthria Cerebellar examination: Present: no dysmetria - VTE Documentation of Mechanical Device: Intermittent pneumatic compression device Results - Laboratory Findings CBC and BMP: 12/07/17 10:25 12/07/17 10:25 Abnormal lab findings: Abnormal lab results Glucose 133 mg/dL (70-105) H 12/07/17 10:25 POC Glucose 119 mg/dL (70-99) H 12/06/17 21:23 Urine Clarity Cloudy (Clear) A 12/06/17 05:45 Ur Specific [place] 1.026 (1.010-1.025) H 12/06/17 05:45 Urine Blood Small (Negative) H 12/06/17 05:45 Urine Microscopic WBC 3-5 per hpf (0-3) H 12/06/17 05:45 Urine Bacteria Moderate per hpf (None-Few) H 12/06/17 05:45 Consult Discharge Plan - Plan Referrals: Jerry Almeida MD [Primary Care Provider] -
--- NOTE | 2017-12-07 16:42 | Cardiology Consult Note ---
<Yarely Escobedo - Last Filed: 12/07/17 16:38> Date of Encounter: 12/07/17 Time of Encounter: 13:30 Assessment and Plan (1) Sinus bradycardia Current Visit: Yes Status: Acute Per cardiology: -Sinus bradycardia noted. -Has LOOP recorder. -Loop interrogated with no delta events recorded (HR less than 40 per medtronic) . -Denies dizziness, ligthheadedness. -Continue telemtry. (2) Chest pain Current Visit: No Status: Acute Per cardiology: -Pateint reports typical angina, similar to previous angina. -Denies current chest pain. -NO acute ischemic ECG changes, -Troponins 0.04, then negative. -LHC 07/2016 for STEMI with 30% left main, 20% mid LAD, 99% mid circumflex with BMS placed, 70% mid RCA, patent distal RCA stent. -TTE 07/2016 with LVEF 60%, moderate diastolic dysfunction, mild MR, no segmental wall motion abnormalities noted. -Concerning symptoms, also Concern for worsening RCA lesion with bradycardia. -Plan for possible LHC in am. RIsks versus benefits of LHC explained to patient , states understanding and agreeable to proceed. Of note, BMS was placed last time due to recurrent nose bleeds. Denies recent nose bleeds. Also documented non-compliance, I discussed with brunilda who states he would be able to take dual anti-platelet therapy uniterrupted if was warranted. -Will make NPO after midnight. Qualifiers: Chest pain type: other chest pain Qualified Code(s): R07.89 - Other chest pain; R07.8 - Other chest pain Discussion w patient/family: The assessment and plan as outlined above was discussed with the patient who expressed understanding and agreement. All questions were answered. Thank you for involving us in the care of your patient. Please call with any questions. Discussed and reviewed with . History of Present Illness Consult date: 12/06/17 Requesting physician: Julio Melendez Consult reason: bradycardia Chief complaint: seizures History of present illness: Mr. Najera is a 62 year old male with a relevant past medical history of CAD, [place] s/p PCI, seizures, HTN, GERD, depression, anxiety, DM, tobacco abuse who presented to [facility] after a seizure. Cardiology has been consulted for bradycardia. Patient denies dizziness, lightheadedness. Patient reports intermittent exertional chest pain that is relieved with nitro. Patient states he has been taking nitro 1-2 times per month. Denies current chest pain. Patient also reports increased shortness of breath. Denies fatigue. Past Med Surg Social Fam HX - Past Medical History Attestation: Yes The following information was validated with the patient. Source: patient, old records reviewed Medical history: COPD, coronary artery disease, diabetes, myocardial infarction , seizures, other Additional medical history: unspecified heart problem Psychiatric history: anxiety, depression, panic disorder, other - Past Surgical History Surgical History: angioplasty/stent, appendectomy, cholecystectomy, herniorrhaphy, knee replacement Additional surgical history: shoulder surgery, 2 cardiac stent, loop recorder - Social History Smoking Status: Current every day smoker Smokeless Tobacco Status: No Alcohol use: none Drug use: none - Family History Sister History Unknown: Yes Adopted: No Living Status: Hx Family Cardiac Disorders: Yes (SISTER WITH PACEMAKER & VALVE) Hx Family Respiratory Disorders: Yes (SISTER WITH COPD) Hx Family Cancer: Yes (SISTER OF BRAIN CANCER) Hx Family GI Disorders: (UNKNOWN) Hx Family Endocrine Disorder: Yes (SISTER WITH DM) Medications and Allergies Albuterol Sulfate [Proair Hfa] 2 puff IH QID PRN 04/19/16 [History] Aspirin 81 mg PO DAILY 04/19/16 [History] Clopidogrel [Plavix] 75 mg PO DAILY 04/19/16 [History] Loratadine [Claritin] 10 mg PO DAILY 04/19/16 [History] Metformin HCl [Glucophage] 1,000 mg PO BID 04/19/16 [History] OxyCODONE Immed Rel [Roxicodone 20 MG] 20 mg PO TID PRN 04/19/16 [History] Phenytoin ER [Dilantin ER] 100 mg PO QAM 04/19/16 [History] Trazodone HCl 100 mg PO HS 04/19/16 [History] clonazePAM [Klonopin] 2 mg PO TID PRN 04/19/16 [History] hydrOXYzine HCl [Hydroxyzine HCl] 25 mg PO TID PRN 04/19/16 [History] Atorvastatin [Lipitor] 20 mg PO HS #30 tablet 07/14/16 [Rx] Lisinopril [Zestril] 2.5 mg PO DAILY #30 tablet 07/14/16 [Rx] Docusate [Colace] 100 mg PO DAILY PRN 05/02/17 [History] Fluticasone Propionate Nasal [Flonase] 1 spray NS DAILY 05/02/17 [History] Nitroglycerin 1 spray PO DAILY 05/02/17 [History] [place]-3S/Dha/Epa/Fish Oil [Fish Oil [place]-3 Softgel] 1 cap PO DAILY 05/02/17 [ History] Pantoprazole Sodium [Protonix] 40 mg PO DAILY 05/02/17 [History] Isosorbide MONOnitrate (24 HR) [Imdur] 60 mg PO DAILY 12/05/17 [History] Phenytoin ER [Dilantin ER] 300 mg PO HS 12/05/17 [History] 3 Allergy/AdvReac Type Severity Reaction Status Date / Time levofloxacin [From Levaquin] Allergy Hives Verified 12/05/17 20:14 naproxen Allergy Hives Verified 12/05/17 20:14 All Systems Review: The remainder of the systems were reviewed and are negative - Cardiovascular Cardiovascular: as per HPI, chest pain with exertion, dyspnea on exertion Physical Examination Vital Signs, Last 4 Hours Temp Pulse Resp Pulse Ox 12/07/17 16:21 98.3 F 39 18 95 General: Conversant, No Apparent Distress HEENT: Atraumatic, Normocephaly, Mucus Membranes Moist Neck: No JVD, Normal carotid pulses Cardiac: Reg Rate and Rhythm, Normal S1 and S2, No Murmur Lungs: Normal Breath Sounds, No Wheeze, Rales, Rhonchi Neuro: Alert and responsive, No focal deficits noted Abdomen: Soft, Non-Tender Skin: No rashes noted on visualized skin Musculoskeletal: No Chest Wall Tenderness Extremities: No Clubbing, No Cyanosis, No Edema, Normal Pulses Results 12/07/17 10:25 12/07/17 10:25 Lab Results Active Medications Aspirin (Aspirin) 81 mg PO DAILY [facility] Stop: 06/07/18 09:01 Last Admin: 12/07/17 08:40 Dose: 81 mg Atorvastatin Calcium (Lipitor) 20 mg PO HS [facility] Stop: 06/07/18 21:01 Last Admin: 12/06/17 21:36 Dose: 20 mg Clopidogrel Bisulfate (Plavix) 75 mg PO DAILY [facility] Stop: 06/07/18 09:01 Last Admin: 12/07/17 08:40 Dose: 75 mg Dextrose/Water (Dextrose 50% (Syg)) 25 ml IVP AD PRN PRN Reason: Hypoglycemia Stop: 06/06/18 23:56 Docusate Sodium (Colace) 100 mg PO DAILY [facility] PRN Reason: Protocol Stop: 06/07/18 09:01 Last Admin: 12/07/17 08:39 Dose: 100 mg Glucagon (Glucagen) 1 mg IM ONCE PRN PRN Reason: Hypoglycemia Stop: 06/06/18 23:56 Glucose (Gluctose) 15 gm PO ONCE PRN PRN Reason: Hypoglycemia Stop: 06/06/18 23:56 Glucose (Gluctose) 30 gm PO ONCE PRN PRN Reason: Hypoglycemia Stop: 06/06/18 23:56 Dextrose (Dextrose 5%) 1,000 mls @ 100 mls/hr IVC .Q10H PRN PRN Reason: HYPOGLYCEMIA Stop: 06/06/18 23:56 Insulin Human Lispro (Humalog) 0 units SQ Q6HR [facility] PRN Reason: Protocol Stop: 06/07/18 00:01 Last Admin: 12/07/17 11:52 Dose: Not Given Isosorbide Mononitrate (Imdur) 60 mg PO DAILY [facility] Stop: 06/07/18 09:01 Last Admin: 12/07/17 08:39 Dose: 60 mg Lacosamide (Vimpat) 100 mg PO BID [facility] Stop: 06/07/18 14:16 Last Admin: 12/07/17 08:39 Dose: 100 mg Lisinopril (Zestril) 2.5 mg PO DAILY [facility] PRN Reason: Protocol Stop: 06/07/18 09:01 Last Admin: 12/07/17 08:40 Dose: 2.5 mg Naloxone HCl (Narcan) 0.4 mg IVP Q2MIN PRN PRN Reason: SEE COMMENTS Stop: 06/06/18 22:57 Omeprazole (Prilosec) 20 mg PO DAILY [facility] Stop: 06/07/18 09:01 Last Admin: 12/07/17 08:39 Dose: 20 mg Oxycodone HCl (Roxicodone) 20 mg PO TID PRN PRN Reason: Pain Stop: 06/07/18 01:36 Last Admin: 07/08/18 08:40 Dose: 20 mg Phenytoin (Dilantin) 100 mg PO QAM [facility] Stop: 06/09/18 09:01 Phenytoin (Dilantin) 300 mg PO QPM [facility] Stop: 06/08/18 18:01 Laboratory Tests 12/06/17 12/06/17 09:21 13:14 Troponin I 0.04 H* 0.03 - Imaging and Cardiology Chest Xray: report reviewed Echo: report reviewed Cardiac cath: report reviewed - EKG Interpretation EKG results cardiology: personally reviewed (ECG with SB, HR 45, RBBB.), other ( Telemetry reviewed with average HR previous 12 hours noted to be 41, SB. Minimum 36 at 0544. PVCs noted.) Consult Discharge Plan - Plan Referrals: Jerry Almeida MD [Primary Care Provider] - <Zechariah Hutner - Last Filed: 12/07/17 22:00> Date of Encounter: 12/07/17 - Attending Attestation I have personally performed a face to face evaluation on this patient. I have reviewed and agree with the care plan. History and Exam by me shows CC: Chest pain PT initially admitted through ER with complaint of seizures, breakthrogh, reports had been fairly well controlled on current meds. During evaluation pt admits to recurrent chest pain, mid sternal, comes spontaneously but has been provoked by exercise such as walking his dog, lasts five to ten minutes, has resolved within three minutes of taking sl ntg. Pt reports pain is the same as before most recent PCI with BMS 07/20 for NSTEMI. He reports he is taking one to three sublingual ntg per week depending on his exercise level. He felt better after PCI 07/20, but did not regain previous exercise capacity. PMH: reviwed, cath films reviewed, has significant complex obstruction in mid RCA, at in proximal LMT, ROS: Reviewed PE: pt seen and examined, agree with findings as documented. IMP:PLan; 1. Seizures, appear better controlled, appreciate neurology recs. 2. Unstable angina post PCI with BMS to Cx 07/20 with residual RCA and LMT stenosis, recommend LHC with FFR RCA and LMT if indicated. Risks and benefits discussed, pt agrees to proceed. 3. Depression: pt still grievingn loss of his and sister one year ago, tearful and concerned. He is also concerned about hospital stay interfering with his dog, "all I have left:, may benefit from pastoral care visit. : Assessment and Plan Discussion w patient/family: The assessment and plan as outlined above was discussed with the patient and/or family members who expressed understanding and agreement. All questions were answered. Thank you for involving us in the care of your patient. Please call with any questions. History of Present Illness History of present illness: Mr. Najera is a 62 year old male All Systems Review: The remainder of the systems were reviewed and are negative Physical Examination Vital Signs, Last 4 Hours Temp Pulse Resp BP Pulse Ox 12/07/17 20:19 98.1 F 41 17 137/73 96 Results 12/07/17 10:25 12/07/17 10:25 Lab Results 12/07/17 12/07/17 10:25 10:25 WBC 11.1 Hgb 14.5 Hct 42.7 Plt Count 178 Sodium 137 Potassium 4.1 Chloride 103 Carbon Dioxide 28 BUN 13 Creatinine 0.77 Glucose 133 H Calcium 9.2
[2017-12-08] MEDS: Insulin LISPRO 300 UNITS/3 ML VIAL SQ SCH ×3 (06:29→18:42)
--- NOTE | 2017-12-08 10:24 | Neurology Progress Note ---
Date of Encounter: 12/08/17 Time of Encounter: 07:35 Assessment and Plan (1) Breakthrough seizure Current Visit: No Status: Acute Patient with a history of seizure disorder with breakthrough seizures now started on Vimpat because he was on Keppra in the past and not able to tolerated doing well no side effects reported suggest to continue on the current dose of Vimpat 100 mg twice a day. He was also on Dilantin and is been taking it on a regular basis suggest to continue on his home dose of Dilantin 100 in the morning and 300 at night.check level in one week after discharge From neurology standpoint patient is a stable continue same medication follow cardiology recommendations regarding bradycardia will Sign off call if needed. (2) Seizure disorder Current Visit: No Status: Chronic Subjective Interval history: Patient is a stable from neurology standpoint no further seizures he is been on vimpat not started yesterday because Keppra was discontinued as he was in the past and has some side effects he was not able to recall so it was discontinued CT scan of the head is been negative. He was also found to be bradycardic cardiology services are consulted and is getting workup. He did acknowledges that he is been on Dilantin on a regular basis but not on any other seizure medication sTable neurologically no new issues Objective - Constitutional Vitals: Temp Pulse Resp BP Pulse Ox 98.7 F 45 19 152/77 97 12/08/17 07:45 12/08/17 07:45 12/08/17 07:45 12/08/17 07:45 12/08/17 07:45 - Neurological Exam Motor Examination: Present: grossly full strength in all extremities Sensation intact: Present: intact Reflex and gait examination: intact Mental Status Examination: Present: awake, alert, oriented to person, oriented to place, follows commands appropriately, answers questions appropriately Cranial nerve examination: Present: PERRL, EOMI, visual velazquez intact, no facial asymmetry is present, no dysarthria Cerebellar examination: Present: no dysmetria - VTE Documentation of Mechanical Device: Intermittent pneumatic compression device Results - Laboratory Findings CBC and BMP: 12/07/17 10:25 12/07/17 10:25 Abnormal lab findings: Abnormal lab results Glucose 133 mg/dL (70-105) H 12/07/17 10:25 Urine Clarity Cloudy (Clear) A 12/06/17 05:45 Ur Specific [place] 1.026 (1.010-1.025) H 12/06/17 05:45 Urine Blood Small (Negative) H 12/06/17 05:45 Urine Microscopic WBC 3-5 per hpf (0-3) H 12/06/17 05:45 Urine Bacteria Moderate per hpf (None-Few) H 12/06/17 05:45 Consult Discharge Plan - Plan Referrals: Jerry Almeida MD [Primary Care Provider] - (sent web request on 12-08-17 @ [phone])
[2017-12-08 10:29] LABS: Basophils # 0.1 K/mcL (0.0-0.2); Basophils % 0.4 %; Eosinophils # 0.1 K/mcL (0.0-0.6); Eosinophils % 0.5 %; Hematocrit 43.6 % (37.5-50.1); Hemoglobin 15.5 g/dL (12.9-16.9); Immature Granulocytes % 0.8 % (0-4); Lymphocytes % 22.5 %; Mean Corpuscular HGB Conc 35.6 g/dL (31.6-35.5); Mean Corpuscular Hemoglobin 31.7 pg (28.0-33.3); Mean Corpuscular Volume 89.2 fL (83.0-100.0); Monocytes # 0.6 K/mcL (0.0-1.3); Monocytes % 4.9 %; Neutrophils # 9.4 K/mcL (1.6-8.9); Platelet Count 184 K/mcL (140-400); Red Blood Count 4.89 M/mcL (4.19-5.50); Segmented Neutrophils % 70.9 %
[2017-12-08] MEDS: Isosorbide MONOnitrate (24 HR) 60 MG TAB.ER.24H PO SCH (11:47)
[2017-12-08] MEDS: Aspirin 81 MG TAB.CHEW PO SCH (11:47)
[2017-12-08 12:03] LABS: Blood Urea Nitrogen 11 mg/dL (8-23); Calcium 9.2 mg/dL (8.6-10.3); Carbon Dioxide 24 mEq/L (23-29); Chloride 106 mEq/L (98-107); Glucose 134 mg/dL (70-105); Osmolality,Calculated 283 (280-300); Potassium 3.6 mEq/L (3.5-5.1); Sodium 136 mEq/L (136-145)
[2017-12-08] MEDS ORDERED: clonazePAM 1 MG TABLET PO PRN (12:47)
--- NOTE | 2017-12-08 13:22 | Electrocardiograph Report ---
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
--- NOTE | 2017-12-08 13:27 | Pre-Sedation Evaluation ---
Pre-sedation evaluation - Pre-sedation checklist Date of procedure: 12/08/17 Procedure: [facility] Recent Vitals: Last Vital Signs Temp 98.7 F 12/08/17 11:25 Pulse 43 12/08/17 11:55 Resp 20 12/08/17 11:52 BP 136/76 12/08/17 11:32 Pulse Ox 98 12/08/17 11:52 H&P (including ROS) documented in medical record: Yes Previous reaction to sedatives/anesthetics: No Dietary Status: No solid food in preceding 4 hrs and no liquid in preceding 2 hrs Dentition: No loose teeth or bridges ASA Classification *see protocol: CLASS II-Mild systemic disease Plan of Care: Pt appropriate candidate for procedure/moderate/conscious sedation , Risks/benefits of procedure/sedation discussed w/ patient/family Cardiac Registry (Cardio Only) - Functional Capacity Functional Capacity: >=4 METS without symptoms - Clincal Frailty Scale Clinical Frailty Scale: Managing Well
[2017-12-08 14:28] LABS: BUN/Creatinine Ratio 15 (6-26); eGFR For African Americans > 60 (> 60); eGFR For Non-African Americans > 60 (> 60)
[2017-12-08] MEDS ORDERED: Heparin 1,000 UNITS/500 mL 500 ML ONE (14:44)
[2017-12-08] MEDS ORDERED: Verapamil 5 MG/2 ML VIAL ONE (14:44)
[2017-12-08] MEDS ORDERED: 0.9 % Sodium Chloride 1,000 ML ONE ×2 (14:44→14:53)
[2017-12-08] MEDS ORDERED: *HR* Heparin 10,000 UNIT/10 ML VIAL ONE (14:44)
[2017-12-08] MEDS ORDERED: ISOVUE-370 200 ML INFUS..BTL IV ONE ×2 (14:45→16:52)
[2017-12-08] MEDS ORDERED: Nitroglycerin 1,000 MCG/10 ML VIAL IV ONE ×2 (14:45→16:37)
--- NOTE | 2017-12-08 14:55 | Electrocardiograph Report ---
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
[2017-12-08] MEDS ORDERED: *HR* FentaNYL (PF) 100 MCG/2 ML VIAL ONE (15:29)
[2017-12-08] MEDS ORDERED: *HR* Midazolam HCl 5 MG/5 ML VIAL IVP ONE (15:30)
[2017-12-08] MEDS ORDERED: Ondansetron 4 MG/2 ML VIAL IVP PRN (17:01)
--- NOTE | 2017-12-08 17:05 | Invasive Diagnostic Lab Proc ---
Name: Juan Najera Date of Study: 12/08/2017 Date: 1955 Ht: 68.9in Medical Record#: [id number] Age: 62 Wt: 156.53lb Gender: Male BSA: 1.86 Order #: [id number] BMI: 23.18 Physicians Procedure Physician: Kwasi Steen MD, [facility] Referring MD: Referring MD: Staff Name Position Time In CourtLucy RN Mail Deliverer 02:45 PM Petrona Garcia RN Mail Deliverer 02:45 PM Eddie Barclay RT (R) Monitor 02:45 PM Lauren Rick RT (R) Scrub 02:45 PM Indications Indication Unstable Angina Procedures Performed Procedure L HRT ARTERY/VENTRICLE ANGIO PRQ CARD ANNMARIE STENT W/ANGIO 1 VSL PRQ CARD ANNMARIE STENT W/ANGIO 1 VSL Pre-Procedure Checklist Informed consent is complete signed and on chart. H&P is on chart. ID band is on and ID verified with patient. Patient NPO for procedure The procedure was described for the patient and questions were answered. Blood Pressure: 118/86 ECG is on chart. Rhythm: Sinus Bradycardia Plan of Care Patient will tolerate the procedure without complications. Adequate level of comfort will be maintained. Hemodynamics will remain stable Patient will recover from procedure without complications. Respiratory function will be maintained. Cardiac rhythm will remain stable. Patient temperature will be maintained. Patient and/or family have verbalized understanding of the procedure. Patient Education Chief Complaint/Reason for Test: Cardiac Cath Developmental Category: Adult (18-64 years) Developmentally Appropriate for Age: Yes Learning Barriers: None Education Needs: Procedure Education Method: Verbal Information Taught: Cardiac Cath Educational Evaluation: Able to repeat information Intravenous Access Time IV Size Location DC'd Fluid/Drip Rate Units RN 03:29 PM 18g 1 1" Patent On Arrival 0.9NaCl 25 ml/hr 03:29 PM 20g 1 1/4" Patent On Arrival Allergies ULTRACET naproxen levofloxacin NAPROSYN Vital Signs Time BP (mmHg) HR (bpm) O2 Sat. RR (bpm) LOC 03:25 PM 118 / 86 55 100 % 16 5 = Fully awake and oriented or at pre-proc level 03:26 PM / % 5 = Fully awake and oriented or at pre-proc level 03:41 PM / % 4 = Oriented but drowsy 03:56 PM / % 4 = Oriented but drowsy 04:11 PM / % 4 = Oriented but drowsy 04:26 PM / % 4 = Oriented but drowsy 04:06 PM 148 / 76 62 98 % 04:10 PM 144 / 65 49 99 % 04:15 PM 154 / 82 49 98 % 04:20 PM 158 / 84 62 100 % 04:25 PM 136 / 96 58 100 % 04:31 PM 158 / 77 46 100 % 04:35 PM 163 / 75 51 100 % 04:40 PM 130 / 71 51 97 % 04:46 PM 151 / 79 44 99 % 03:30 PM 118 / 86 44 100 % 03:36 PM 139 / 76 45 100 % 03:40 PM 150 / 76 47 100 % 03:45 PM 154 / 83 44 100 % 03:50 PM 110 / 61 51 97 % 03:55 PM 115 / 71 61 96 % 04:01 PM 134 / 78 63 98 % 5 = Fully awake and oriented or at pre-proc level 04:41 PM / % 5 = Fully awake and oriented or at pre-proc level Procedural Medications Time Medication Dose Units Method Given By 03:28 PM Oxygen 2 L/min nasal cannula Lucy Yun RN 03:31 PM Versed 2 mg Intravenous Lucy Yun RN 03:31 PM Fentanyl 50 mcg Intravenous Lucy Yun RN 03:45 PM Versed 2 mg Intravenous Lucy Yun RN 03:45 PM Fentanyl 25 mcg Intravenous Lucy Yun RN 03:46 PM Lidocaine 2% 0.5 ml Subcutaneous Kwasi Steen MD, FAC 03:47 PM Heparin 4000 units Nitroglycerin 200 mcg Verapamil 2.5 mg Intraarterial Kwasi Steen MD, FACC 03:52 PM Nitroglycerin 200 mcg Intracoronary Kwasi Steen MD 03:55 PM Nitroglycerin 100 mcg Intracoronary Kwasi Steen MD 04:05 PM Heparin 2000 units Intravenous Lucy Yun RN 04:35 PM Nitroglycerin 150 mcg Intracoronary Kwasi Steen MD 04:38 PM Nitroglycerin 200 mcg Intracoronary Kwasi Steen MD 04:48 PM Plavix 300 mg Orally Lucy Yun RN ASA Classification: CLASS II- Mild systemic disease (i.e. well-controlled diabetes, hypertension, asthma, cigarette smoking) Leonel Score Preprocedure Postprocedure Activity 2- Moves 4 extremities sustained head lift Activity 2- Moves 4 extremities sustained head lift Circulation 2- SBP +/= 20 points of pre-anesthetic level Circulation 2- SBP +/= 20 points of pre-anesthetic level Consciousness 2- Awake and alert oriented x 3 Consciousness 2- Awake and alert oriented x 3 O2 Saturation 2- Able to maintain O2 satruation of 92% on room air O2 Saturation 2- Able to maintain O2 satruation of 92% on room air Respiratory 2- Able to deep breathe and cough well Respiratory 2- Able to deep breathe and cough well Total Score 10 Total Score 10 Contrast Agent: Isovue Diagnostic Contrast: 227 ml Total Contrast: 227 ml Fluoro Dose: 6955 mGy Activated Clotting Time Time Seconds to Clot 04:04 PM 263 04:33 PM 360 Procedure Log Time Note Enter By 02:41 PM CathStat 02:45 PM Patient charges- Angio tray pack, Navilyst 3mm J, Pulse Oximetry and ACIST tubing and transducer [email or web address] 02:45 PM Lucy Yun RN Position: Mail Deliverer Time in: 14:45 [email or web address] 02:45 PM Petrona Garcia RN Position: Mail Deliverer Time in: 14:45 [email or web address] 02:45 PM Eddie Barclay RT (R) Position: Monitor Time in: 14:45 [email or web address] 02:45 PM Lauren Rick RT (R) Position: Scrub Time in: 14:45 [email or web address] 02:45 PM Clinical Presentation: Unstable angina [email or web address] 03:25 PM Pt arrived to soap slabber 2 at 15:25 [email or web address] 03:25 PM Case Delayed No 2 03:25 PM Time: 15:25 Patient comfortable and pain free: Yes 03:26 PM Time: 15:25LOC: 5 = Fully awake and oriented or at pre-proc level 2 03:26 PM Physician arrived 15:26 2 03:26 PM Meet and greet completed 03: PM Sign in performed according to hospital policy. 03:26 PM Procedure start 15:26 [email or web address] 03: PM ASA Class CLASS II- Mild systemic disease (i.e. well-controlled diabetes, hypertension, asthma, cigarette smoking) 03:28 PM Time: 15:28 Oxygen on at 2 L/min per nasal cannula by Lucy Yun RN [email or web address] 03:30 PM Vitals capture started with the following parameters, Patient=Adult, Interval=5 min, Initial Jlyhvzyc=498 mmHg, Deflation Rate=5 mmHg, Cuff placed on Right Arm 03:30 PM HR=44 bpm, GMLJ=890/86 mmhg, BnE7=653.0 % 03:31 PM Recorded ECG: HR=52 Condition=Condition 1 03:31 PM Hair removed from procedure site in procedure lab using clippers. Right wrist prepped with Chloraprep by Sites, Lauren RT (R), then patient was draped. Skin intact. [email or web address] 03:31 PM Hair removed from procedure site in procedure lab using clippers. Right groin prepped with Chloraprep by Sites, Lauren RT (R), then patient was draped. Skin intact. [email or web address] 03:31 PM Time: 15:31 Versed 2 mg Intravenous Given by Lucy Yun RN 03:32 PM Time: 15:31 Fentanyl 50 mcg Intravenous Given by Lucy Yun RN ilson 03:36 PM HR=45 bpm, ASOL=971/76 mmhg, BdE2=018.0 % 03:40 PM Pressure channel 1 zero failed. 03:40 PM HR=47 bpm, MQCX=469/76 mmhg, GqL3=693.0 % 03:40 PM Pressure channel 1 zeroed. 03:41 PM Time: 15:26LOC: 5 = Fully awake and oriented or at pre-proc level 03:41 PM Time: 15:25 Patient comfortable and pain free: Yes 03:45 PM Time: 15:45 Versed 2 mg Intravenous Given by Lucy Yun RN 03:45 PM Time: 15:45 Fentanyl 25 mcg Intravenous Given by Lucy Yun RN ilson 03:45 PM HR=44 bpm, MOOW=276/83 mmhg, MtN4=506.0 % 03:46 PM Time out performed according to hospital policy 03:46 PM Time: 15:46 0.5 ml Lidocaine 2% to right radial Subcutaneous Given by Kwasi Steen MD, [facility] 03:47 PM Access obtained by percutaneous puncture. 6Fr 10cm Terumo Glidesheath sheath placed in right Radial artery. [id number] ilson 03:47 PM 0.035 260cm Navilyst 3mmJ wire [id number] ilson 03:48 PM Time: 15:47 Patient given 4,000 units Heparin, 200 mcg Nitroglycerin, and 2.5 mg Verapamil Intraarterial by Kwasi Steen MD, [facility]. This is given to reduce risk of vessel spasm and thrombosis. [email or web address] 03:49 PM 5Fr TIG catheter inserted over the wire [facility] [email or web address] 03:49 PM Catheter selectively placed in left ventricle [email or web address] 03:49 PM Bolus angiogram of left Ventricle complete: 10 ml/sec for a total of 20 mls [email or web address] 03:50 PM Recorded Pressure: LV, HR=52, Condition=Condition 1 (Left Ventricle) LV 110/-4/5 03:50 PM Recorded Pressure: LV, Ao, HR=50, Condition=Condition 1 (Left Ventricle) LV 100/19/6, (Aorta) Ao 99/52/71 03:50 PM HR=51 bpm, JKES=600/61 mmhg, SpO2=97.0 % 03:51 PM RCA angiography performed in multiple views. [email or web address] 03:51 PM Lesion found in Mid RCA. Pre Stenosis: 80 Pre LEON Flow: [email or web address] 03:51 PM Right Coronary, Right Posterior Descending Arteries with Right Posterolateral and Acute Marginal branches with 80 % stenosis. If graft is supplying this area, 0 % stenosis [email or web address] 03:51 PM Coronary Dominance: right [email or web address] 03:52 PM LCA angiography performed in multiple views. [email or web address] 03:52 PM Time: 15:52 Nitroglycerin 200 mcg Intracoronary Given by Kwasi Steen MD [email or web address] 03:53 PM Catheter removed [email or web address] 03:54 PM 5Fr FL 3.5 catheter inserted over the wire [id number] [email or web address] 03:54 PM Lesion found in 1st Marginal. Pre Stenosis: 80 Pre LEON Flow: [email or web address] 03:54 PM Circumflex, Obtuse Marginal, Left Posterior Descending, and Left Posterolateral Coronary Arteries with 80 % stenosis. If graft is supplying this area, 0 % stenosis [email or web address] 03:54 PM LCA angiography performed in multiple views. [email or web address] 03:55 PM Recorded Pressure: Ao, HR=57, Condition=Condition 1 (Aorta) Ao 98/66/81 03:55 PM Time: 15:55 Nitroglycerin 100 mcg Intracoronary Given by Kwasi Steen MD [email or web address] 03:55 PM HR=61 bpm, VLYX=588/71 mmhg, SpO2=96.0 % 03:56 PM Time: 15:41 Patient comfortable and pain free: Yes [email or web address] 03:56 PM Time: 15:41LOC: 4 = Oriented but drowsy [email or web address] 03:56 PM Lesion found in Mid LAD. Pre Stenosis: 60 Pre LEON Flow: [email or web address] 03:56 PM Mid/Distal Left Anterior Descending Coronary Artery and diagonal branches with 60% stenosis. If graft is supplying this area, 0 % stenosis [email or web address] 03:57 PM Physician reviewing films [email or web address] 03:57 PM Lesion found in Proximal LMCA. Pre Stenosis: 40 Pre LEON Flow: [email or web address] 03:57 PM Left Main Coronary Artery with 40% stenosis [email or web address] 03:57 PM Lesion found in Distal LMCA. Pre Stenosis: 30 Pre LEON Flow: [email or web address] 03:58 PM Catheter removed [email or web address] 04:01 PM HR=63 bpm, PBOJ=855/78 mmhg, SpO2=98.0 % 04:01 PM 6Fr RBL 3.5 Convey guide catheter was used to cannulate the PCI vessel successfully. reused? No [email or web address] 04:03 PM 2.5 mm x 20mm NC Trek Rx balloon across target lesion- successful. reused? No [email or web address] 04:04 PM At 16:04 the ACT was 263 seconds. [email or web address] 04:05 PM Time: 16:05 Heparin 2000 units Intravenous Given by Lucy Yun RN [email or web address] 04:06 PM Balloon inflated @ 18 clarence for 18 seconds [email or web address] 04:06 PM HR=62 bpm, QBSV=276/76 mmhg, SpO2=98.0 % 04:08 PM Balloon catheter removed intact. [email or web address] 04:10 PM 3.0mm x 24mm Synergy drug-eluting stent across target lesion- successful Lot #[id number] [email or web address] 04:10 PM HR=49 bpm, FUNM=944/65 mmhg, SpO2=99.0 % 04:11 PM Time: 15:56LOC: 4 = Oriented but drowsy [email or web address] 04:11 PM Time: 15:56 Patient comfortable and pain free: Yes [email or web address] 04:12 PM Guide wire removed intact. [email or web address] 04:12 PM Stent delivery system removed intact. not deployed [email or web address] 04:12 PM Guide catheter removed intact. [email or web address] 04:13 PM 6Fr JL3.5 guide catheter was used to cannulate the PCI vessel successfully. reused? No [email or web address] 04:15 PM marvel wire advanced [email or web address] 04:15 PM Recorded Pressure: Ao, HR=52, Condition=Condition 1 (Aorta) Ao 140/48/74 04:15 PM HR=49 bpm, NKSD=365/82 mmhg, SpO2=98.0 % 04:16 PM 3.0nzx46kg stent advanced [email or web address] 04:18 PM Stent deployed @ 12 clarence for 24 seconds [email or web address] 04:19 PM Stent balloon reinflated @ 13 clarence for 14 seconds [email or web address] 04:20 PM Guide wire removed intact. [email or web address] 04:20 PM Stent delivery system removed intact. [email or web address] 04:20 PM Guide catheter removed intact. [email or web address] 04:20 PM HR=62 bpm, XFRL=356/84 mmhg, IwI5=038.0 % 04:22 PM 6Fr JR 4 Runway guide catheter was used to cannulate the PCI vessel successfully. reused? No [email or web address] 04:23 PM .014 [place] 300cm guide wire across target lesion- successful. reused? No [email or web address] 04:24 PM 2.1gld20bc NC Trek [email or web address] 04:25 PM Balloon inflated @ 16 clarence for 18 seconds [email or web address] 04:25 PM HR=58 bpm, KGKO=842/96 mmhg, MnE2=058.0 % 04:25 PM Balloon catheter removed intact. [email or web address] 04:26 PM Time: 16:11LOC: 4 = Oriented but drowsy [email or web address] 04:26 PM Time: 16:11 Patient comfortable and pain free: Yes [email or web address] 04:26 PM 3.0mm x 32mm Synergy drug-eluting stent across target lesion- successful Lot #[id number] [email or web address] 04:28 PM Stent delivery system removed intact.not deployed [email or web address] 04:30 PM 2.5mm x 20mm NC Trek advanced [email or web address] 04:31 PM Balloon inflated @ 16 clarence for 12 seconds [email or web address] 04:31 PM HR=46 bpm, CCSS=457/77 mmhg, EoC1=950.0 % 04:31 PM Balloon inflated @ 16 clarence for 12 seconds [email or web address] 04:32 PM Balloon catheter removed intact. [email or web address] 04:32 PM 3.0mm x 32mm synergy advanced [email or web address] 04:33 PM At 16:33 the ACT was 360 seconds. [email or web address] 04:34 PM Stent deployed @ 14 clarence for 17 seconds [email or web address] 04:34 PM Stent delivery system removed intact. [email or web address] 04:35 PM Time: 16:35 Nitroglycerin 150 mcg Intracoronary Given by Kwasi Steen MD [email or web address] 04:35 PM HR=51 bpm, CPEX=523/75 mmhg, DzH3=260.0 % 04:38 PM Time: 16:38 Nitroglycerin 200 mcg Intracoronary Given by Kwasi Steen MD [email or web address] 04:40 PM HR=51 bpm, KNNQ=115/71 mmhg, SpO2=97.0 % 04:41 PM 3.0mm x 16mm Synergy drug-eluting stent across target lesion- successful Lot #[id number] [email or web address] 04:41 PM Time: 16:26LOC: 4 = Oriented but drowsy [email or web address] 04:41 PM Time: 16:26 Patient comfortable and pain free: Yes [email or web address] 04:42 PM Stent deployed @ 16 clarence for 13 seconds [email or web address] 04:43 PM Stent balloon reinflated @ 16 clarence for 17 seconds [email or web address] 04:43 PM Stent delivery system removed intact. [email or web address] 04:43 PM Guide wire removed intact. [email or web address] 04:43 PM Guide catheter removed intact. [email or web address] 04:44 PM Arterial sheath pulled, Vasc Band closure device used and was Successful S/N. [email or web address] 04:45 PM 13 ml air in Vasc Band. [email or web address] 04:45 PM Procedure completed at 16:45 12/08/2017 [email or web address] 04:46 PM Sign out completed: Radiation Dose 1051.75 mGy, 6954.64 cGy/cm2 Fluoro Time: 15.7 Isovue 370 - 200ml contrast 227 ml given by Kwasi Steen MD, [facility]. Complications: NoneCardiac Rehab Consult needed: YesConfirmed administered medications: Yes [email or web address] 04:46 PM Isovue 370 - 200ml,2 Bottle(s) used. [email or web address] 04:46 PM Estimated Blood Loss: less than 20cc [email or web address] 04:46 PM HR=44 bpm, GDMT=928/79 mmhg, SpO2=99.0 % 04:46 PM Post ECG Sinus Bradycardia [email or web address] 04:46 PM Post Blood Pressure 151/79 [email or web address] 04:46 PM Information taught Cardiac Cath, PCI, and Vasc Band [email or web address] 04:46 PM Education needs Procedure, Plan of Care, and Disease Process [email or web address] 04:47 PM Learning barriers :Sedated [email or web address] 04:47 PM Education Methods Verbal [email or web address] 04:47 PM Education evaluation Needs further instruction [email or web address] 04:47 PM Site status No bleeding/hematoma - Rt Wrist as reported by Sites, Lauren RT (R) at 16:47 [email or web address] 04:47 PM Delay to floor No [email or web address] 04:47 PM Complications: None [email or web address] 04:47 PM Fluoro Time: 15.7 [email or web address] 04:47 PM Isovue 370 - 200ml contrast 227 ml given by . [email or web address] 04:47 PM Radiation Dose 1051.75 mGy [email or web address] 04:48 PM Time: 16:48 Plavix 300 mg Orally Given by Lucy Yun RN 2 04:51 PM Patient out of room: 16:51 [email or web address] 04:51 PM No family [email or web address] 04:56 PM Time: 16:41 Patient comfortable and pain free: Yes [email or web address] 04:56 PM Time: 16:41LOC: 5 = Fully awake and oriented or at pre-proc level [email or web address] 04:57 PM Report given to ana laura MENARD Pt taken to 2N Room #15. 16:57 [email or web address] Complications Complication None None Hemodynamics Pressures Site Systolic/A Wave Diastolic/V Wave Mean LV 110 -4 5 LV 100 19 6 AO 99 52 71 AO 98 66 81 AO 140 48 74 Post Procedure Information Blood Pressure: 151/79 mmHg Rhythm: Sinus Bradycardia Post procedural instructions were given Closure Device Time Device Success/Fail 12/08/2017 4:44:00 PM Mechanical Compression Successful Site Checks Time Location Status Staff Sheath In? Note 04:47 PM Rt Wrist No bleeding/hematoma Sites, Lauren RT (R) Pulses Time Site Pre-Procedure Post-Procedure Note 12/08/2017 3:29:00 PM Bilateral DP 2+ 12/08/2017 3:29:00 PM Bilateral PT 1+ 12/08/2017 3:29:00 PM Bilateral radial 2+ Updated by Eddie Barclay RT (R) on 12/08/2017 4:58:29 PM Eddie Barclay RT electronically signed on 12/08/2017 4:59:00 PM with status of Final
[2017-12-08] MEDS: *HR* Heparin 5,000 UNIT/ML VIAL SQ SCH (18:45)
[2017-12-08] MEDS: *HR* OxyCODONE Immed Rel 5 MG TABLET PO PRN (18:46)
--- NOTE | 2017-12-08 19:37 | Internal Med Progress Note ---
Date of Encounter: 12/08/17 Time of Encounter: 11:00 - Assessment and plan (1) Bradycardia with 41-50 beats per minute Current Visit: Yes Status: Acute Assessment and plan: Patient with chest pain and bradycardia with concerns for worsening RCA lesion Cardiology consulted with recommendations for left heart catheterization on (2) Seizure Current Visit: No Status: Acute Assessment and plan: Patient has been seizure-free since medications adjusted by neurology. Patient's Keppra has been discontinued and patient started on Dilantin 300 mg p.m. and the 100 mg a.m. in addition to lacosamide 100 mg twice daily (3) CAD (coronary artery disease) Current Visit: No Status: Chronic Assessment and plan: History of CAD with one stent placed in 07/2016. Patient reported chest pain earlier today and was found to be bradycardic Cardiology consulted and appreciate recommendations Continue home medications of Plavix, aspirin, Lipitor, lisinopril, Imdur Qualifiers: Coronary Disease-Associated Artery/Lesion type: [place] artery [place] vs. transplanted heart: [place] heart Associated angina: with unstable angina Qualified Code(s): I25.110 - Atherosclerotic heart disease of [place] coronary artery with unstable angina pectoris (4) Diabetes mellitus Current Visit: No Status: Chronic Assessment and plan: Coverage with sliding-scale insulin Qualifiers: Diabetes mellitus type: type 2 Diabetes mellitus mcfp insulin use: without mcfp use Diabetes mellitus complication status: with unspecified complications Qualified Code(s): E11.8 - Type 2 diabetes mellitus with unspecified complications (5) Tobacco abuse Current Visit: No Status: Chronic Assessment and plan: Current smoker of one pack per day. He was counseled on smoking cessation however he is not interested in quitting. (6) DVT prophylaxis Current Visit: No Status: Acute Assessment and plan: Heparin SQ - Time Spent With Patient Total time spent is greater than 50% in coordination of care (as documented) at patient's floor/unit and/or counseling patient: - Subjective Interval history: Patient has been seizure-free this admission after medications adjusted per neurology recommendations Patient also reported chest pain and there are concerns for worsening RCA lesion with bradycardia therefore [facility] scheduled for 12/08/17 - Constitutional Vitals: Temp Pulse Resp BP Pulse Ox 98.7 F 44 20 120/82 97 12/08/17 17:06 12/08/17 17:15 12/08/17 17:15 12/08/17 17:15 12/08/17 17:15 General appearance: Present: A&O X 3, pleasant, no acute distress - Respiratory Respiratory exam: Present: CTAB. Absent: accessory muscle use, rales, rhonchi, wheezes - Cardiovascular Cardiovascular exam: Present: RRR, +S1, +S2. Absent: diastolic murmur, gallop, rubs, systolic murmur Internal Medicine: Result - Labs CBC & Chem 7: 12/08/17 10:03 12/08/17 10:03 Labs: Short CBC 12/08/17 Range/Units 10:03 WBC 13.2 H (4.3-11.1) K/mcL Hgb 15.5 (12.9-16.9) g/dL Hct 43.6 (37.5-50.1) % Plt Count 184 (140-400) K/mcL Neutrophils # 9.4 H (1.6-8.9) K/mcL BMP 12/08/17 10:03 Sodium 136 Potassium 3.6 Chloride 106 Carbon Dioxide 24 BUN 11 Creatinine 0.73 Glucose 134 H Calcium 9.2 - Impressions Impressions Echocardiogram 12/08/17 11:00 Impressions: LVEF 50%. Normal LV chamber size, wall thickness and function. Mild left ventricular diastolic dysfunction. Normal right ventricular structure and function. No evidence of pulmonary hypertension. No significant valvular dysfunction. Left Ventricular Wall Motion: Rest Echo Findings All wall segments showed normal motion. Findings: Study Quality * Technically adequate exam. ECG Findings * Sinus bradycardia. Left Ventricle * LVEF 50%. * Normal LV chamber size, wall thickness and function. * Mild left ventricular diastolic dysfunction. Right Ventricle * Normal right ventricular structure and function. Left Atrium * Moderately dilated left atrium. Right Atrium * Normal right atrial size. Aortic Valve * Aortic valve not well visualized. * No aortic regurgitation. * No aortic stenosis. Mitral Valve * Mild mitral annular calcification * Mildly thickened mitral valve leaflets. * Trace mitral regurgitation. * No mitral stenosis. Tricuspid Valve * Normal tricuspid valve structure and function. * Trace tricuspid regurgitation. * No evidence of pulmonary hypertension. Pulmonic Valve * Pulmonic valve is not well visualized. * No pulmonic regurgitation. Aorta * Normally sized aortic root. Pericardium * The pericardium appears normal. IVC * Normal IVC dimensions and inspiratory collapse. Pulmonary Artery * Normal visualized portions of the main pulmonary artery. - VTE Documentation of Mechanical Device: Intermittent pneumatic compression device Consult Discharge Plan - Plan Referrals: Zechariah Hunter DO [Partnered Physician] - (office will call patient at home with follow up appointment) Jerry Almeida MD [Primary Care Provider] - (sent web request on 12-08-17 @ 2302)
[2017-12-08] MEDS ORDERED: traZODone 50 MG TABLET PO SCH (21:00)
[2017-12-09] MEDS: Insulin LISPRO 300 UNITS/3 ML VIAL SQ SCH ×2 (00:48→06:23)
[2017-12-09] MEDS: *HR* Heparin 5,000 UNIT/ML VIAL SQ SCH (05:29)
--- NOTE | 2017-12-09 07:32 | Electrocardiograph Report ---
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
[2017-12-09] MEDS: Isosorbide MONOnitrate (24 HR) 60 MG TAB.ER.24H PO SCH (07:35)
[2017-12-09] MEDS: Aspirin 81 MG TAB.CHEW PO SCH (07:35)
[2017-12-09 09:46] LABS: Hematocrit 38.4 % (37.5-50.1); Mean Corpuscular HGB Conc 34.9 g/dL (31.6-35.5); Mean Corpuscular Hemoglobin 30.8 pg (28.0-33.3); Mean Corpuscular Volume 88.3 fL (83.0-100.0); Mean Platelet Volume 11.1 fL (9.4-12.4); Platelet Count 154 K/mcL (140-400); Red Blood Count 4.35 M/mcL (4.19-5.50); Red Cell Distribution Width 13.1 % (11.5-14.5)
[2017-12-09 09:59] LABS: Hemoglobin 13.4 g/dL (12.9-16.9)
[2017-12-09 10:12] LABS: BUN/Creatinine Ratio 14 (6-26); Blood Urea Nitrogen 11 mg/dL (8-23); Calcium 8.9 mg/dL (8.6-10.3); Carbon Dioxide 28 mEq/L (23-29); Chloride 104 mEq/L (98-107); Glucose 187 mg/dL (70-105); Osmolality,Calculated 292 (280-300); Potassium 3.8 mEq/L (3.5-5.1); Sodium 139 mEq/L (136-145); eGFR For African Americans > 60 (> 60); eGFR For Non-African Americans > 60 (> 60)
--- NOTE | 2017-12-09 11:02 | Cardiology Progress Note ---
Date of Encounter: 12/09/17 Time of Encounter: 10:30 Assessment and Plan (1) Sinus bradycardia Current Visit: Yes Status: Acute Per cardiology: -Sinus bradycardia noted. -Has LOOP recorder. -Loop interrogated with no delta events recorded (HR less than 40 per [employer]) . -Denies dizziness, ligthheadedness. -AVerage HR 45, SB. -Will continue to monitor in outpatient setting. HR has improved some since PCI. (2) Chest pain Current Visit: No Status: Acute Per cardiology: -Pateint reported typical angina, similar to previous angina. -Denies current chest pain. -S/p C yesterday with PCI to OM1, and RCA. Has remaining mild-moderate CAD. -ON asa, plavix. Educated on dual anti-platelet therapy uninterrupted for at least one year. States understanding. -RIght radial access site without hematoma, mild ecchymosis noted. Pulse 2+ palpable. -Cardiology will sign off and will follow in outpatient setting. Follow up set. Qualifiers: Chest pain type: other chest pain Qualified Code(s): R07.89 - Other chest pain; R07.8 - Other chest pain Discussion w patient/family: The assessment and plan as outlined above was discussed with the patient who expressed understanding and agreement. All questions were answered. Thank you for involving us in the care of your patient. Please call with any questions. Discussed and reviewed with Subjective Principal diagnosis: seizure Interval history: Pateint is s/p LHC yesterday. Denies chest pain. [place] dizziness lightheadedness. Objective Vital Signs, Last 4 Hours Temp Pulse Resp BP Pulse Ox 12/09/17 10:55 53 18 12/09/17 07:45 43 12/09/17 07:41 45 16 95 12/09/17 07:22 98.8 F 51 16 141/78 99 General: Conversant, No Apparent Distress HEENT: Atraumatic, Normocephaly, Mucus Membranes Moist Neck: No JVD, Normal carotid pulses Cardiac: Reg Rate and Rhythm, Normal S1 and S2, No Murmur Lungs: Normal Breath Sounds, No Wheeze, Rales, Rhonchi Neuro: Alert and responsive, No focal deficits noted Abdomen: Soft, Non-Tender Skin: No rashes noted on visualized skin, Other (Right radial access site without hematoma. Mild ecchymosis noted. ) Musculoskeletal: No Chest Wall Tenderness Extremities: No Clubbing, No Cyanosis, No Edema, Normal Pulses Results 12/09/17 09:18 12/09/17 09:18 Lab Results Impressions Echocardiogram 12/08/17 11:00 Impressions: LVEF 50%. Normal LV chamber size, wall thickness and function. Mild left ventricular diastolic dysfunction. Normal right ventricular structure and function. No evidence of pulmonary hypertension. No significant valvular dysfunction. Left Ventricular Wall Motion: Rest Echo Findings All wall segments showed normal motion. Findings: Study Quality * Technically adequate exam. ECG Findings * Sinus bradycardia. Left Ventricle * LVEF 50%. * Normal LV chamber size, wall thickness and function. * Mild left ventricular diastolic dysfunction. Right Ventricle * Normal right ventricular structure and function. Left Atrium * Moderately dilated left atrium. Right Atrium * Normal right atrial size. Aortic Valve * Aortic valve not well visualized. * No aortic regurgitation. * No aortic stenosis. Mitral Valve * Mild mitral annular calcification * Mildly thickened mitral valve leaflets. * Trace mitral regurgitation. * No mitral stenosis. Tricuspid Valve * Normal tricuspid valve structure and function. * Trace tricuspid regurgitation. * No evidence of pulmonary hypertension. Pulmonic Valve * Pulmonic valve is not well visualized. * No pulmonic regurgitation. Aorta * Normally sized aortic root. Pericardium * The pericardium appears normal. IVC * Normal IVC dimensions and inspiratory collapse. Pulmonary Artery * Normal visualized portions of the main pulmonary artery. Active Medications Aspirin (Aspirin) 81 mg PO DAILY [facility] Stop: 06/07/18 09:01 Last Admin: 12/09/17 07:35 Dose: 81 mg Atorvastatin Calcium (Lipitor) 20 mg PO HS KRYSTYNA Stop: 06/07/18 21:01 Last Admin: 12/08/17 20:49 Dose: 20 mg Clonazepam (Klonopin) 2 mg PO TID PRN PRN Reason: Anxiety Last Admin: 12/08/17 18:46 Dose: 2 mg Clopidogrel Bisulfate (Plavix) 75 mg PO DAILY [facility]STY[facility] Stop: 06/07/18 09:01 Last Admin: 12/09/17 07:35 Dose: 75 mg Dextrose/Water (Dextrose 50% (Syg)) 25 ml IVP AD PRN PRN Reason: Hypoglycemia Stop: 06/06/18 23:56 Docusate Sodium (Colace) 100 mg PO DAILY KRYSTYNA PRN Reason: Protocol Stop: 06/07/18 09:01 Last Admin: 12/09/17 07:34 Dose: 100 mg Glucagon (Glucagen) 1 mg IM ONCE PRN PRN Reason: Hypoglycemia Stop: 06/06/18 23:56 Glucose (Gluctose) 15 gm PO ONCE PRN PRN Reason: Hypoglycemia Stop: 06/06/18 23:56 Glucose (Gluctose) 30 gm PO ONCE PRN PRN Reason: Hypoglycemia Stop: 06/06/18 23:56 Heparin Sodium (Porcine) (Heparin) 5,000 unit SQ Q12HCO [facility] Stop: 06/09/18 18:01 Last Admin: 12/09/17 05:29 Dose: 5,000 unit Dextrose (Dextrose 5%) 1,000 mls @ 100 mls/hr IVC .Q10H PRN PRN Reason: HYPOGLYCEMIA Stop: 06/06/18 23:56 Insulin Human Lispro (Humalog) 0 units SQ Q6HR KRYSTYNA PRN Reason: Protocol Stop: 06/07/18 00:01 Last Admin: 12/09/17 06:23 Dose: Not Given Isosorbide Mononitrate (Imdur) 60 mg PO DAILY [facility] Stop: 06/07/18 09:01 Last Admin: 12/09/17 07:35 Dose: 60 mg Lacosamide (Vimpat) 100 mg PO BID [facility] Stop: 06/07/18 14:16 Last Admin: 12/09/17 07:35 Dose: 100 mg Lisinopril (Zestril) 2.5 mg PO DAILY [facility] PRN Reason: Protocol Stop: 06/07/18 09:01 Last Admin: 12/09/17 07:34 Dose: 2.5 mg Naloxone HCl (Narcan) 0.4 mg IVP Q2MIN PRN PRN Reason: SEE COMMENTS Stop: 06/06/18 22:57 Omeprazole (Prilosec) 20 mg PO DAILY [facility] Stop: 06/07/18 09:01 Last Admin: 12/09/17 07:34 Dose: 20 mg Ondansetron HCl (Zofran) 4 mg IVP Q6HR PRN; Protocol PRN Reason: Nausea And Vomiting Stop: 06/09/18 17:02 Oxycodone HCl (Roxicodone) 20 mg PO TID PRN PRN Reason: Pain Stop: 06/07/18 01:36 Last Admin: 12/08/17 18:46 Dose: 20 mg Phenytoin (Dilantin Er) 100 mg PO QAM [facility]STY[facility] Stop: 06/09/18 09:01 Last Admin: 12/09/17 07:35 Dose: 100 mg Phenytoin (Dilantin Er) 300 mg PO QPM [facility] Stop: 06/08/18 18:01 Last Admin: 12/08/17 18:45 Dose: 300 mg Trazodone HCl (Trazodone) 100 mg PO HS [facility]STYNA Stop: 06/09/18 21:01 Last Admin: 12/08/17 20:49 Dose: 100 mg Laboratory Tests 12/09/17 12/09/17 09:18 09:18 WBC 12.4 H Hgb 13.4 D Creatinine 0.76 - Imaging and Cardiology Chest Xray: report reviewed Echo: report reviewed Cardiac cath: report reviewed - EKG Interpretation EKG results cardiology: other (Telemetry reviewed with average HR previous 12 hours noted to be 45, SB. PVCs and PACs noted.) - VTE Documentation of Mechanical Device: Intermittent pneumatic compression device Consult Discharge Plan - Plan Referrals: Zechariah Hunter DO [Partnered Physician] - (office will call patient at home with follow up appointment) Betsy Ho, MALACHI [Advanced Practice Nurse] - 12/15/17 4:00 pm
[2017-12-09 11:23] VITALS: BP 99/53
--- NOTE | 2017-12-09 13:29 | Discharge Summary ---
- NOTES TO OUTPATIENT PROVIDER Notes to Outpatient Provider: Follow up with PCP in 2-3 days after discharge. Recheck CBC (leukocytosis) and heart rate/blood pressure (bradycardia) at that time. Follow up with cardiology as directed. Follow up with neurology as directed. Date of Encounter: 12/09/17 Time of Encounter: 13:27 - Discharge Diagnosis (1) Seizure Priority: Primary Status: Acute (2) Bradycardia with 41-50 beats per minute Priority: Secondary Status: Acute (3) CAD (coronary artery disease) Priority: Secondary Status: Acute Qualifiers: Coronary Disease-Associated Artery/Lesion type: [place] artery [place] vs. transplanted heart: [place] heart Associated angina: with unstable angina Qualified Code(s): I25.110 - Atherosclerotic heart disease of [place] coronary artery with unstable angina pectoris (4) Diabetes mellitus Priority: Secondary Status: Chronic Qualifiers: Diabetes mellitus type: type 2 Diabetes mellitus residential insulin use: without pantograph engraver use Diabetes mellitus complication status: with unspecified complications Qualified Code(s): E11.8 - Type 2 diabetes mellitus with unspecified complications (5) Tobacco abuse Priority: Secondary Status: Chronic (6) DVT prophylaxis Priority: Secondary Status: Acute Hospital course: Mr. Najera is a 62 year old male admitted for seizure activity. He was admitted to step down unit with telemetry. Neurology was consulted. They continued his home dilantin and added vimpat 100 mg BID. He had no further seizure activity after admission. He also had some chest pain and bradycardia. Cardiology was consulted. ECHO showed LVEF 50%, normal LV size and function, mild LV diastolic dysfunction, normal RV structure and function, no pulmonary hypertension, and no significant valvular dysfunction. He had LOOP recorder paced, with no noted bradycardia events. HR remained in 40-50s throughout admission. He had LHC, which showed severe 2 vessel CAD. He had PTCA/drug- eluting stents placed in OM and mid RCA. Chest pain is resolved today. HR has improved to 50s today. He will follow up with PCP in 2-3 days after discharge. CBC (leukocytosis) and heart rate/blood pressure (bradycardia) can be rechecked at that time. He will follow up with cardiology as directed. He will follow up with neurology as directed. Patient has met maximum benefit of this hospitalization and will be discharged home in stable condition. Discharge discussed with: patient, nurse, case management, other (Pharmacist) - Time Spent with Patient Total time spent providing and/or coordinating discharge services: Less than 30 minutes - Discharge Medications Prescriptions: Lacosamide [Vimpat] 100 mg PO BID 14 Days #28 tablet Home Medications: Albuterol Sulfate [Proair Hfa] 2 puff IH QID PRN 04/19/16 [History] Aspirin 81 mg PO DAILY 04/19/16 [History] Clopidogrel [Plavix] 75 mg PO DAILY 04/19/16 [History] Loratadine [Claritin] 10 mg PO DAILY 04/19/16 [History] Metformin HCl [Glucophage] 1,000 mg PO BID 04/19/16 [History] OxyCODONE Immed Rel [Roxicodone 20 MG] 20 mg PO TID PRN 04/19/16 [History] Phenytoin ER [Dilantin ER] 100 mg PO QAM 04/19/16 [History] Trazodone HCl 100 mg PO HS 04/19/16 [History] clonazePAM [Klonopin] 2 mg PO TID PRN 04/19/16 [History] hydrOXYzine HCl [Hydroxyzine HCl] 25 mg PO TID PRN 04/19/16 [History] Atorvastatin [Lipitor] 20 mg PO HS #30 tablet 07/14/16 [Rx] Lisinopril [Zestril] 2.5 mg PO DAILY #30 tablet 07/14/16 [Rx] Docusate [Colace] 100 mg PO DAILY PRN 05/02/17 [History] Fluticasone Propionate Nasal [Flonase] 1 spray NS DAILY 05/02/17 [History] Nitroglycerin 1 spray PO DAILY 05/02/17 [History] [place]wall-3S/Dha/Epa/Fish Oil [Fish Oil [place]-3 Softgel] 1 cap PO DAILY 05/02/17 [ History] Pantoprazole Sodium [Protonix] 40 mg PO DAILY 05/02/17 [History] Isosorbide MONOnitrate (24 HR) [Imdur] 60 mg PO DAILY 12/05/17 [History] Phenytoin ER [Dilantin ER] 300 mg PO HS 12/05/17 [History] Lacosamide [Vimpat] 100 mg PO BID 14 Days #28 tablet 12/09/17 [Rx] Allergies/Adverse Reactions: 3 Allergy/AdvReac Type Severity Reaction Status Date / Time levofloxacin [From Levaquin] Allergy Hives Verified 12/05/17 20:14 naproxen Allergy Hives Verified 12/05/17 20:14 Date of admission: 12/05/17 21:21 Primary care physician: Jerry Almeida MD Consults: Neurology 12/06/17 12:11 Consult to Cardiology [CONS] Routine Comment: Consulting Provider: Cardiology [place] Reason for Consult: SB WITH BBB. HX LOOP RECORDER. HR 39-46. DR. SAENZ TO CALL CARDIO. Time Notified: 12:12 Call Completed: No 12/09/17 11:07 Consult to Cardiac Rehabilitation-Phase1 [CONS] Routine Comment: Reason for Consult: s/p pci Call Completed: No Discharging clinician: Renny Rivera Anticipated date of discharge: 12/09/17 - Constitutional Vitals: Temp Pulse Resp BP Pulse Ox 98.9 F 48 18 99/53 100 12/09/17 11:20 12/09/17 12:04 12/09/17 11:20 12/09/17 11:20 12/09/17 11:20 General appearance: Present: cooperative, A&O X 3, pleasant, no acute distress, answers questions appropriately - Respiratory Respiratory exam: Present: CTAB. Absent: accessory muscle use, rales, rhonchi, wheezes Additional comments: Normal WOB - Cardiovascular Cardiovascular exam: Present: RRR, +S1, +S2. Absent: diastolic murmur, gallop, rubs, systolic murmur Additional comments: No BLE edema - GI/Abdominal GI/Abdominal exam: Present: normal bowel sounds, soft. Absent: distended, hepatomegaly, mass, splenomegaly, tenderness - Psychiatric Psychiatric exam: Present: normal affect, normal mood. Absent: agitated, anxious, depressed - Skin Skin exam: Present: dry, intact, warm. Absent: cyanosis, rash - Patient Status Disposition: Home, Self-Care Condition: Good Overall status at discharge: patient is progressing back to baseline - Discharge Instructions Follow Up With: Zechariah Hunter DO [Partnered Physician] - (office will call patient at home with follow up appointment) Betsy Ho, [employer]NER [employer]ULT[employer] ENGINEER [Advanced Practice Nurse] - 12/15/17 4:00 pm Additional Instructions: Follow up with PCP in 2-3 days after discharge. Recheck CBC (leukocytosis) and heart rate/blood pressure (bradycardia) at that time. Follow up with cardiology as directed. Follow up with neurology as directed. - Diet and Activity Activity: resume usual activities as tolerated Diet: diabetic diet, low fat, low cholesterol, low salt diet, other (Cardiac Diet)
== END 2017-12-09 15:42 | disposition home or self-care (01) ==
LOC: 2NNU 16:56 → EMEROO 16:56 → SUATTDRO 21:21 → 2NNU 21:45
PROVIDERS: ADMIT Internal Medicine Nephrology; ATTEND Hospitalist